=== PATIENT | male | born 1995 | race Caucasian/White ===

== ENCOUNTER 2021-11-14 16:31 | Emergency (ER) | payer OTHER, MEDICAID, SELFPAY ==
[2021-11-14 16:54] VITALS: BP 128/75; PULSE 106; RESP 12; TEMP 36.8; O2SAT 97; BMI 25.9
== END 2021-11-14 20:05 | disposition left against medical advice (07) ==
PROVIDERS: Emergency Provider Emergency Medicine; PCP Internal Medicine
DX: M79.644 Pain in right finger(s) (principal)
CPT/HCPCS: 99281; 99282

== ENCOUNTER 2021-12-31 17:33 | Emergency (ER) | payer OTHER, MEDICAID, SELFPAY ==
--- NOTE | ~2021-12-31 | XR_ITS ---
EXAMINATION: XR ELBOW, RIGHT CLINICAL INFORMATION: Needle fragment in antecubital space. COMPARISON: No recent priors. TECHNIQUE: AP, lateral, and oblique views of the right elbow. FINDINGS: There is a needle fragment of approximately 1.1 cm in length projecting over the soft tissues of the anterior elbow at approximately 2.8 cm from the anterior skin surface when measured on the lateral view and 2.5 cm from the lateral skin surface when measured on the AP view. There is surrounding soft tissue swelling. No other radiopaque foreign bodies. No acute fractures or malalignment. No joint effusion. XR/XR elbow RT min 3V IMPRESSION: Needle fragment as above with surrounding soft tissue swelling. No acute fractures or malalignment.
[2021-12-31 17:41] VITALS: BP 137/80; PULSE 93; RESP 18; TEMP 36.5; O2SAT 99; BMI 25.0
--- NOTE | 2021-12-31 18:13 | ED.SKABFB ---
HPI - Skin/Abscess/Foreign Bdy General Chief complaint: Skin/Abscess/Foreign Body Stated complaint: needle broke in his arm from injection Time Seen by Provider: 12/31/21 17:45 Source: patient Mode of arrival: ambulatory Limitations: no limitations History of Present Illness HPI narrative: 26-year-old male who has a past medical history of substance abuse currently on methadone presenting to the ED with complaints a possible needle stuck in his right forearm after he injected some heroin yesterday. He reports that he would like to speak to head strength and conditioning coach. He reports that he believes the methadone is not helping him because he believes that what he is buying off the street is not here when it is actually fat in all. He reports that he attempted to take out the needle himself although was unsuccessful and he is adamant that there is a needle in his right AC joint. He denies any other symptoms complaints or concerns at this time. He reports that he lives with his grandmother who he rents a room from. He reports that his mother is around although he does not speak to her due to ?situational issues?. He denies any SI/HI/auditory visual hallucinations and thoughts of self-injury. complaint: foreign body Onset (ago): day(s) (since) Location: RUE (right ac joint ) Severity: mild Quality: sharp and constant Pain Consistency: constant Relieving factors: none Exacerbating factors: palpation and movement Context: IVDA Associated symptoms: denies other symptoms Treatments prior to arrival: other (attempted to remove needle himself ) Related Data Home Medications Medication Instructions Recorded Confirmed methadone 10 mg/mL oral concentrate 96 mg PO DAILY ml 04/22/21 04/22/21 Previous Rx's Medication Instructions Recorded cephalexin 500 mg capsule 500 mg PO Q6H 10 Days #40 cap 12/31/21 doxycycline hyclate 100 mg tablet 100 mg PO BID 10 Days #20 tab 12/31/21 Allergies Allergy/AdvReac Type Severity Reaction Status Date / Time No Known Allergies Allergy Verified 12/31/21 17:40 [No Known Allergies*] Review of Systems Review of Systems: Constitutional : Denies history of same, Denies any other sites involved, Denies IV drug use, Denies history of MRSA, Denies swollen glands, Denies injury, Denies Fever, Denies Chills, + Sig Pain, Denies Systemic symptoms Cardiovascular : No Chest Pain, No SOB Respiratory : No Dyspnea Gastrointestinal : No abdominal pain Musculoskeletal : No Joint Swelling Skin : + ? FB in right ac aspect, No abscess with surrounding erythema, No skin laceration, No spreading rash, Denies bites, Denies discharge, Neuro : No Weakness, No Numbness/tingling Psych : No SI/HI/thoughts of self injury Yes all other systems are reviewed and are negative [facility] Past Medical History Attestation statement: The following information was validated with the patient. Medical History Hx of substance abuse Smoker Surgical History No significant past surgical history Family History Family History Father No problems noted. Mother No problems noted. Social History Social History Alcohol intake: never Patient Tobacco Use Status: Current someday Tobacco user Tobacco use type: Cigarette Cigarettes Per Day: 10 Advance Directives: No Advance Directives Information Provided: Yes Physical Exam Vital Signs: Vital Signs: Last Vital Signs Temp 97.7 F 12/31/21 17:41 Pulse 93 12/31/21 17:41 Resp 18 12/31/21 17:41 BP 137/80 12/31/21 17:41 Pulse Ox 99 12/31/21 17:41 BMI result Body Mass Index 25.0 vital signs have been reviewed as normal and appeared to be correct. Blood pressure normal Heart rate normal. Respiration rate normal. Temperature normal. Oxygen saturation normal. Appearance: Alert. Oriented X3. No acute distress. Head: Normal external exam. Normocephalic. Atraumatic. Eyes: PERRLA. EOMI. Conjunctiva and sclera normal. Eyelids normal. ENT: Pharynx normal. Uvula midline. Moist mucous membranes. Neck: Normal inspection. Neck supple. FROM. CVS: Normal heart rate and rhythm. Respiratory: No respiratory distress. Painless inspiration. Skin: Skin warm and dry. Normal skin color. Normal skin turgor. No rashes/lesions/lacerations noted. Extremities: To the right AC joint patient has a scab with some soft tissue swelling no obvious foreign bodies on my exam and no surrounding erythema/fluctuance or streaking noted at this time. He does have 0 track underwood. Otherwise all other Extremities exhibit normal range of motion and nontender. Neuro: Oriented X 3. No motor deficit. No sensory deficit. Reflexes normal. Normal steady gait. No focal neuro deficits noted. Vascular: + radial pulses/+ 2 distal pedal pulses/+2 dorsalis pedis b/l. Normal cap refill. No cyanosis noted to upper extremity nails and lower extremity toes nails. Course Course Course Narrative: 17:45pm - 26-year-old male who has a past medical history of substance abuse currently on methadone presenting to the ED with complaints a possible needle stuck in his right forearm after he injected some heroin yesterday. He reports that he would like to speak to head strength and conditioning coach. He reports that he believes the methadone is not helping him because he believes that what he is buying off the street is not here when it is actually fat in all. He reports that he attempted to take out the needle himself although was unsuccessful and he is adamant that there is a needle in his right AC joint. He denies any other symptoms complaints or concerns at this time. He reports that he lives with his grandmother who he rents a room from. He reports that his mother is around although he does not speak to her due to ?situational issues?. He denies any SI/HI/auditory visual hallucinations and thoughts of self-injury. Therefore at this time I ordered an x-ray of his right elbow. I also spoke to Nicolas the recovery culture to will speak to the patient. Will re-evaluate. Reevaluation(s) Reevaluation #1: - when I reviewed the patient's elbow x-ray it appears that the patient does have a piece of the broken needle in his right AC although it appears that it is in the musculature. Dr. Brantley and myself when and to try to see if we could take out the foreign body although the patient is unable to pinpoint where his actual pain is from and it appears on x-ray that it might be deep therefore I consulted with Dr. Wasserman and he reported that the patient can call to the office tomorrow to make a follow-up appointment possibly for for outpatient further evaluation treatment and removal of this foreign body. - will update the patient's tetanus at this time. Will DC home with antibiotics and instructions to call Dr. Wasserman office tomorrow for follow-up for further evaluation and treatment of removal of this foreign body. Patient understands agrees with this plan. Time: 18:39 MDM - Skin/Abscess/Foreign Bdy Medical Records Attestation: I reviewed the patient's medical records. Discharge Plan Discharge Clinical Impression: Foreign body in right upper extremity Patient Disposition: Home, Self-Care Instructions: Soft Tissue Foreign Body (ED) Prescriptions: New cephalexin 500 mg capsule 500 mg PO Q6H 10 Days Qty: 40 0RF doxycycline hyclate 100 mg tablet 100 mg PO BID 10 Days Qty: 20 0RF No Action methadone 10 mg/mL concentrate 96 mg PO DAILY 0RF Rx Instructions: [facility] (Methadone clinic) Referrals: Troy Dunham MD [Primary Care Provider] - 2 days Fabio Wasserman MD [Physician] - 1 day (Call tomorrow to make a follow-up appointment within [address] Wasserman will be in the OR all day tomorrow so he reported that possibly on he will be able to see you although you need to call to see when is the next available appointment or you can ask for Dr. Mccullough as well) Stand Alone Forms: Work/School Release Print Language: Azeri
[2021-12-31] MEDS: cephALEXin 500 MG CAPSULE PO (18:53)
[2021-12-31] MEDS: Diphth,Pertus(ACell),Tet Adult 0.5 ML SYRINGE IM (18:59)
--- NOTE | 2021-12-31 19:09 | MHC.RECOVSUP ---
? Reason for consult:Recovery Support o?? Current location ?[facility] o?? Identified substance use concern Heroine ? ?? Support ? Intervention: o?? Community resources provided o?? Harm reduction discussion ? Plan: o?? Follow up tomorrow? o?? Patient to follow up with [facility] after discharge ? Additional information: Met with Pt. Spoke to Pt. about if he was interested in going to treatment Pt. stated that he has a job and does not want to lose it. Also Pt. stated that he was on methadone but it's not working for him .Said that he is still feeling withdrawals by the night time.This is the reason he uses heroin. Gave different options for him he stated that he will go [facility] [place] tomorrow. ?
== END 2021-12-31 19:12 | disposition home or self-care (01) ==
PROVIDERS: Emergency Provider Emergency Medicine Emergency Medical Services; PCP Internal Medicine
DX: M79.5 Residual foreign body in soft tissue (principal); F19.10 Other psychoactive substance abuse, uncomplicated; F11.20 Opioid dependence, uncomplicated; F17.200 Nicotine dependence, unspecified, uncomplicated
CPT/HCPCS: 73080; 90471; 90715; 99283; 99284

== ENCOUNTER → 2022-01-01 12:56 | Outpatient (BNVA) | payer OTHER, MEDICAID, SELFPAY | PROVIDERS: PCP Internal Medicine; Referring Provider Internal Medicine; Visit Provider Surgery ==

== ENCOUNTER 2023-03-23 15:50 | Outpatient (AMB) | payer OTHER, SELFPAY ==
--- NOTE | 2023-03-23 16:02 | A.OFFPC_ITS ---
Vital Signs 03/23/23 16:04 Height 5 ft 8 in Weight 178 lb 2 oz BMI 27.1 BP 110/80 Blood Pressure Location Lt brachial Position Sitting Pulse 94 Pulse Source Pulse Oximeter Pulse Oximetry (%) 94 Oxygen Delivery Method Room Air Intake Visit Reasons: 6mth f/u Intake Note: Patient is here for a six months follow up. Process Owner Required: No Accompanied by: Self / Same As Patient Allergies No Known Allergies [No Known Allergies*] Allergy (Verified 07/11/24 11:05) Medication List - Last Reconciled 03/23/23 by Troy Dunham MD methadone 95 mg PO DAILY nicotine (polacrilex) 4 mg buccal Q4-8H PRN Tobacco use date assessed: 03/23/23 HPI 6mth f/u HPI Details Patient comes in today for his follow up visit States that he still has the same symptoms of recurrent tingling sensation/numbness over his right thigh, which has been going on for over a year now States that his symptoms sometimes wake him up in the middle of the night Also relates that he has been experiencing increased anxiety lately Recalls that he used to take Wellbutrin and Gabapentin for his anxiety and that they were helping but he could not get his Rx refilled after a while as he stopped following up with his psychiatrist / doctor back then Also has trouble sleeping at night and tried Trazodone in the past but could not tolerate it due to side effects (nightmares) Is currently still on Methadone but he is now down to 95 mg a day He also did not get any of his previously ordered labs done after his visit for physical exam about 6 months ago He currently denies any headaches or dizziness Denies any chest pains, no SOB No nausea/vomiting, no abdominal pain No change in bowel habits noted [facility] Medical History (Updated 07/14/24 @ 00:02 by Emely Solano) Hepatitis C Anxiety Foreign body (FB) in soft tissue Smoker Hx of substance abuse Surgical History No significant past surgical history Family History Father No problems noted. Mother No problems noted. Social History Housing: Homeless Do you presently have visiting nurse or other home services: No Alcohol intake: current Alcohol intake frequency: 3 or more drinks per day Alc ohol type: beer and hard liquor Patient Tobacco Use Status: Former Tobacco user Tobacco use type: Cigarette Cigarette Packs Per Day: 0.5 Cigarettes Per Day: 10.0 Years Smoked: 10 years e-Cigarette/Vaping Use: Former Use Second Hand Smoke Exposure: No Substance Use Type: Crack/Cocaine and Heroin service: No Current occupational status: unemployed Sexual orientation: Straight/Heterosexual Cognitive needs: No Hearing needs: No Vision needs: No Questionnaire PHQ-9 Over the last 2 weeks, how often have you been bothered by any of the following problems? 1. Little interest or pleasure in doing things: not at all 2. Feeling down, depressed, or hopeless: not at all 3. Trouble falling or staying asleep, or sleeping too much: not at all 4. Feeling tired or having little energy: not at all 5. Poor appetite or overeating: not at all 6. Feeling bad about yourself - or that you are a failure or have let yourself or your family down: not at all 7. Trouble concentrating on things, such as reading the newspaper or watching television: not at all 8. Moving or speaking so slowly that other people could have noticed. Or the opposite - being so fidgety or restless that you have been moving around a lot more than usual: not at all 9. Thoughts that you would be better off or of hurting yourself in some way: not at all Total score: 0 Depression Screening Interpretation: Negative 30901 - PHQ-9 Billing: Yes Source: Developed by Drs. Mike Jefferson, Daiana Barrios, Zuhair Khan and colleagues, with an educational joaquim from [employer]. Thrive Questionnaire Date Thrive assessed: 03/23/23 I am a: Patient What is your living situation today?: I have a steady place to live Within the past 12 months, did the food you bought not last and you didn't have the money to get more?: Never true Within the past 12 months, did you worry whether your food would run out before you got money to buy more?: Never true Do you have trouble paying for medicines?: No Do you have trouble getting transportation to medical appointments?: No Do you have trouble paying your heating and electricity bill?: No Do you have trouble taking care of your child, family member or friend?: No Do you have trouble with day-to-day activities such as bathing, preparing meals, shopping, managing finances, etc.?: No Are you currently unemployed and looking for a job?: No Are you interested in more education?: No Currently or been in a relationship where the following occur: no concerns reported AUDIT C Alcohol Use Questionnaire (AUDIT-C) 1. How often do you have a drink containing alcohol?: 2-4 times a month 2. How many drinks containing alcohol do you have on a typical day when you are drinking?: 1 or 2 3. How often do you have six or more drinks on one occasion?: Never Total Score: 2 Score Reviewed/Action Taken: Yes OSEAS-7 AMB Questionnaire OSEAS-7 Date OSEAS - 7 assessed: 03/23/23 Feeling nervous, anxious, or on edge: 3 = Nearly every day Not being able to stop or control worryin = Nearly every day Worrying too much about different things: 3 = Nearly every day Trouble relaxin = Nearly every day Being so restless that it is hard to sit still: 3 = Nearly every day Becoming easily annoyed or irritable: 3 = Nearly every day Feeling afraid as if something awful might happen: 3 = Nearly every day Total OSEAS-7 score (0-4 normal; 5-9 mild; 10-14 moderate; 15-21 severe): 21 Source: Developed by Drs. Mike Jefferson, Daiana Barrios, Zuhiar Khan and colleagues, with an educational joaquim from [employer]. Review of Systems Const Denies chills, Reports difficulty sleeping, Denies fatigue, Denies fever(s) and Denies headache(s) ENT Denies dysphagia, Denies dizziness, Denies otalgia, Denies headache(s), Denies neck pain, Denies odynophagia and Denies sore throat Card Denies chest pain, Denies irregular heart rhythm, Denies palpitations and Denies dyspnea Resp Denies chest congestion, Denies cough and Denies dyspnea GI Denies abdominal pain, Denies change in bowel habits, Denies constipation, Denies dysphagia, Denies heartburn, Denies diarrhea, Denies nausea, Denies odynophagia and Denies vomiting Denies difficulty urinating, Denies dysuria and Denies urinary frequency Musc Denies back pain, Denies arthralgias, Denies neck pain, Reports numbness (on and off over the right thigh anterolaterally) and Reports tingling (on and off over the right thigh anterolaterally) Skin/Breast Denies rash Neuro Denies dizziness, Denies headache(s), Reports numbness (on and off over the right thigh anterolaterally) and Reports tingling (on and off over the right thigh anterolaterally) Psych Reports anxiety (increasing lately) and Denies depression Endo Denies fatigue and Denies palpitations Physical exam (Primary Care) Vital Signs: Last Vital Signs Pulse 94 03/23/23 16:04 BP 110/80 03/23/23 16:04 Pulse Ox 94 03/23/23 16:04 Oxygen Delivery Method Room Air 03/23/23 16:04 BMI result Body Mass Index 27.1 Tobacco/Smoking Status: Tobacco use Status Tobacco use date assessed 03/23/23 03/23/23 16:08 Patient Tobacco Use Status Current someday Tobacco 03/23/23 16:08 Tobacco use type Cigarette 03/23/23 16:08 e-Cigarette/Vaping Use Never Used 03/23/23 16:08 PHQ-9: PHQ-9 Score PHQ-9: Total score 0 03/23/23 16:52 Depression Screening Interpretation: Negative Thrive Assessment: Date of Thrive Assessment Date Thrive assessed 03/23/23 03/23/23 16:08 Currently or been in a relationship where the following occur: no concerns reported Const General: no acute distress and alert HENMT Ears: TM's normal bilaterally and EAC's normal Throat: Yes posterior oropharynx normal and Yes tonsils normal (no TP congestion) Neck Neck: Yes no lymphadenopathy and Yes supple Thyroid: Thyroid normal Resp Auscultation: clear to auscultation bilaterally, no rales and no wheezes Cardio Rate: regular rate Rhythm: regular rhythm Heart sounds: no murmurs GI Palpation (GI): Soft to palpation and nontender Auscultation: normal bowel sounds General: Yes no CVA tenderness Back/Spine/Pelvis Back: no CVA tenderness Thoracic/Lumbar Spine: thoracic and lumbar spine normal to inspection Skin Rashes: no rashes Neuro General: no focal motor deficits Extrem General: Yes no clubbing, cyanosis or edema Assessment and Plan Assessment & Plan (1) Paresthesia: Code(s): R20.2 - Paresthesia of skin Plan: Involving mostly the right thigh Have advised patient that his symptoms are highly suggestive of meralgia paresthetica, which does not really have any definitive cure but avoiding tight pants and clothings and losing weight will help alleviate and sometimes resolve these symptoms Will start him for now on Gabapentin 300 mg BID to help with his symptoms Will send him again for EMG and NCV for further evaluation Have also advised him to go and get all of his previously ordered labs done KATLIN (2) Anxiety: Code(s): F41.9 - Anxiety disorder, unspecified Plan: Will start him on Bupropion XL 150 mg Q AM (3) Hx of substance abuse: Comment: Methadone clinic is [facility] on [facility] in [place], [place] Code(s): F19.11 - Other psychoactive substance abuse, in remission Plan: Continue Methadone 95 mg QD Follow up with the methadone clinic as scheduled (4) Smoker: Code(s): F17.200 - Nicotine dependence, unspecified, uncomplicated Plan: Counseled again on smoking cessation Plan Follow up in 4 months Orders: Orders NE electromyogram (EMG) 03/23/23 R20.2 - Paresthesia of skin NE nerve conduction velocity 03/23/23 R20.2 - Paresthesia of skin Medications: New bupropion HCl XL 150 mg PO QAM 30 tabs 3RF 30 days F41.9 - Anxiety disorder, unspecified gabapentin 300 mg PO BID 60 caps 3RF 30 days F41.9 - Anxiety disorder, unspecified Coding Level of Care Code Est Pt Level 4 (30220) Diagnoses Paresthesia R20.2 Anxiety F41.9 Hx of substance abuse F19.11 Smoker F17.200
[2023-03-23 16:04] VITALS: BP 110/80; PULSE 94; O2SAT 94; BMI 27.1
== END 2023-03-23 16:58 | disposition home or self-care (01) ==
LOC: HO.HMGH 15:50
PROVIDERS: PCP Internal Medicine; Visit Provider Internal Medicine
DX: R20.2 Paresthesia of skin (principal); F41.9 Anxiety disorder, unspecified; F19.11 Other psychoactive substance abuse, in remission; F17.200 Nicotine dependence, unspecified, uncomplicated
CPT/HCPCS: 99499

== ENCOUNTER 2024-03-30 02:05 | Emergency (ER) | payer MEDICAID, SELFPAY ==
[2024-03-30 02:19] VITALS: BP 125/86; PULSE 90; RESP 18; TEMP 36.6; O2SAT 96; BMI 31.2
--- NOTE | 2024-03-30 03:25 | PC.NURSE ---
abscess noted to pt's left outer forearm. purple/swelling noted throughout area. no drainage/odor noted. pt states he is a IVDU and verbalizes missing his vein x 3 weeks ago. pt states he has not used cocaine or any other drugs in 2 weeks. pt denies fever/chills. tech obtained labs/sent. no sob/wob noted. respirations even and unlabored.
[2024-03-30 03:27] LABS: MANUAL DIFF FLAG NO
[2024-03-30 03:29] LABS: Basophils Percent Auto 0.3 % (0-2); Eosinophils Absolute Auto 0.1 X10*3/uL (0.0-0.4); Eosinophils Percent Auto 0.5 % (0-4); Hematocrit 34.4 % (42.0-52.0); Hemoglobin 12.2 g/dl (14.0-18.0); Imm Gran Abs Auto 0.03 X10*3/uL (0.00-0.03); Imm Gran Pct Auto 0.3 % (0.0-0.4); Lymphocytes Absolute Auto 2.8 X10*3/uL (1.2-4.9); Lymphocytes Percent Auto 26.1 % (20-40); Mean Corpuscular HGB Conc 35.5 g/dl (31.0-36.0); Mean Corpuscular Hemoglobin 29.5 pg (27.0-33.0); Mean Corpuscular Volume 83.1 fL (80.0-98.0); Mean Platelet Volume 8.8 fL (9.4-12.4); Monocytes Absolute Auto 0.8 X10*3/uL (0.1-1.2); Monocytes Percent Auto 6.9 % (2-11); Neutrophils Absolute Auto 7.2 x10*3/uL (2.0-8.3); Neutrophils Percent Auto 65.9 % (45-73); Platelet Count 387 X10*3/uL (160-400); Red Blood Count 4.14 X10*6/uL (4.60-5.80); Red Cell Distribution Width 12.1 % (11.0-16.0); White Blood Count 10.9 X10*3/uL (4.8-10.8)
[2024-03-30 03:42] LABS: Alanine Aminotransferase 58 U/L (0-40); Albumin Level 4.3 g/dL (3.5-5.0); Alkaline Phosphatase 111 U/L (39-117); Anion Gap 16 (12-20); Aspartate Amino Transferase 38 U/L (5-37); Bilirubin Total 0.4 mg/dL (0.0-1.0); Blood Urea Nitrogen 10 mg/dL (9-16); Calcium 9.1 mg/dL (8.4-10.2); Carbon Dioxide 24 mmol/L (22-29); Chloride 103 mmol/L (96-108); Creatinine Clr Calc Pharmacy 134.9; Estimated Glomerular Filt Rate > 60; Glucose Random 94 mg/dL (60-115); Potassium 4.5 mmol/L (3.3-5.1); Sodium 138 mmol/L (135-145); Total Protein 7.4 g/dL (6.5-8.0)
--- NOTE | 2024-03-30 04:22 | PC.NURSE ---
abscess drained by dr. bill - pt tolerated well.
[2024-03-30] MEDS: Doxycycline Monohydrate 100 MG CAPSULE PO (04:34)
[2024-03-30] MEDS: Lidocaine HCl 1 % MPF 5 ML VIAL SUBCUT (04:34)
[2024-03-30] MEDS: cephALEXin 500 MG CAPSULE PO (04:34)
--- NOTE | 2024-03-30 04:34 | PC.NURSE ---
abx administered per provider order.
--- NOTE | 2024-03-30 04:37 | ED_ITS ---
HPI - Skin/Abscess/Foreign Bdy General Chief complaint: Skin/Abscess/Foreign Body Stated complaint: abscess on arm Time Seen by Provider: 03/30/24 04:05 Source: patient Mode of arrival: ambulatory Limitations: no limitations History of Present Illness HPI narrative: 28 yo male with PMH of IVDA here with c/o L elbow abscess at injection site no FB reported x 3 weeks no attempts at drainage no systemic symptoms no hx of MRSA MD complaint: abscess/boil Onset (ago): week(s) (3) Tetanus up to date: yes Location: LUE Severity: mild Relieving factors: none Exacerbating factors: palpation Context: IVDA Associated symptoms: denies other symptoms Treatments prior to arrival: none Related Data Home Medications ?Medication ?Instructions ?Recorded ?Confirmed methadone 10 mg/mL oral concentrate 95 mg PO DAILY 03/23/23 03/23/23 Previous Rx's ?Medication ?Instructions ?Recorded nicotine (polacrilex) 4 mg buccal 4 mg buccal Q4-8H PRN nicotine 03/18/23 lozenge cravings #108 ea bupropion HCl 150 mg 24 hr tablet, 150 mg PO QAM 30 days #30 tabs 04/21/23 extended release gabapentin 300 mg capsule 300 mg PO BID 30 days #60 caps 04/21/23 cephalexin 500 mg capsule 500 mg PO QID 7 days #28 caps 03/30/24 doxycycline hyclate 100 mg capsule 100 mg PO BID 7 days #14 caps 03/30/24 Allergies Allergy/AdvReac Type Severity Reaction Status Date / Time No Known Allergies Allergy Verified 03/30/24 02:22 [No Known Allergies*] Review of Systems 2 Review of Systems: Constitutional : No Fever, No Chills ENT/Mouth : No sore throat, No Rhinorrhea Eyes: No Eye Pain, No Swelling, No Redness Cardiovascular : No Chest Pain, No SOB Respiratory : No Cough, No Sputum Gastrointestinal : No Nausea, No Vomiting, No Diarrhea, No abdominal Pain Genitourinary : No Dysuria, No Hematuria Musculoskeletal : No joint pain, No Myalgias, No Joint Swelling Skin : pos Skin Lesion, positive skin rash Neuro : No Weakness, No Numbness, No Headache Psych : No Anxiety, No Depression All other systems reviewed and are negative PMFSH Past Medical History Attestation statement: The following information was validated with the patient. Source: old records reviewed Medical History Anxiety Foreign body (FB) in soft tissue Smoker Hx of substance abuse Surgical History No significant past surgical history Family History Family History Father No problems noted. Mother No problems noted. Social History Social History Housing: House Alcohol intake: never Patient Tobacco Use Status: Current someday Tobacco user Tobacco use type: Cigarette Cigarettes Per Day: 10 e-Cigarette/Vaping Use: Never Used Advance Directives: No Advance Directives Information Provided: No Do you have a plan to hurt others: No Plan service: No Current occupational status: unemployed Cognitive needs: No Hearing needs: No Vision needs: No Physical Exam 2 Vital Signs: Vital Signs: Last Vital Signs Temp 97.8 F 03/30/24 05:13 Pulse 75 03/30/24 05:13 Resp 16 03/30/24 05:13 BP 114/64 03/30/24 05:13 Pulse Ox 96 03/30/24 05:13 O2 Del Method Room Air 03/30/24 05:13 BMI result Body Mass Index 31.2 Appearance: Alert. Oriented X3. No acute distress. Eyes: Pupils equal, round and reactive to light. ENT: Pharynx normal. Neck: Normal inspection. Neck supple. CVS: Normal heart rate and rhythm. Pulses normal. Respiratory: No respiratory distress. Breath sounds normal. Abdomen: Soft and nontender. Skin: Skin warm and dry. Normal skin color. Normal skin turgor. Extremities: L elbow near medial epicondyle fluctuance superficial to a point soft 2cm abscess no joint effusion normal ROM of joint no cellulitis Neuro: Oriented X 3. No motor deficit. No sensory deficit. Medications Administered Discontinued Medications Generic Name Dose Route Start Last Admin Trade Name Freq PRN Reason Stop Dose Admin Cephalexin HCl 500 mg 03/30/24 04:27 03/30/24 04:34 Cephalexin 500 Mg Capsule PO 03/30/24 04:28 500 mg ONCE ONE Administration Doxycycline Monohydrate 100 mg 03/30/24 04:27 03/30/24 04:34 Doxycycline Monohydrate 100 Mg Capsule PO 03/30/24 04:28 100 mg ONCE ONE Administration Lidocaine HCl 5 ml 03/30/24 04:27 03/30/24 04:34 Lidocaine Hcl 1 % Mpf 5 Ml Vial SUBCUT 03/30/24 04:28 5 ml ONCE ONE Administration Medical Decision Making Medical Decision Making [facility] Narrative: 28 yo male with IVDA and hep C here with c/o L superficial abscess on medial condyle area of L elbow no signs of systemic illness it really is isolated abscess no joint involvement at this time will aspirate and start on oral antibiotics. Differential Diagnosis Differential Diagnoses: The differential diagnosis associated with the presentation includes abscess, MRSA Admission/Observation Consideration of admission/observation: Escalation of care including admission/observation considered no systemic symptoms not toxic, can trial oral antibiotics Lab Data [facility] Lab Attestation statement: I reviewed the patient's lab results. 03/30/24 03:02 03/30/24 03:02 Labs: Lab Results 03/30/24 Range/Units 03:02 WBC 10.9 H (4.8-10.8) X10*3/uL RBC 4.14 L (4.60-5.80) X10*6/uL Hgb 12.2 L (14.0-18.0) g/dl Hct 34.4 L (42.0-52.0) % MCV 83.1 (80.0-98.0) fL MCH 29.5 (27.0-33.0) pg MCHC 35.5 (31.0-36.0) g/dl RDW 12.1 (11.0-16.0) % Plt Count 387 (160-400) X10*3/uL MPV 8.8 L (9.4-12.4) fL Immature Gran % (Auto) 0.3 (0.0-0.4) % Neut % (Auto) 65.9 (45-73) % Lymph % (Auto) 26.1 (20-40) % [place] % (Auto) 6.9 (2-11) % Eos % (Auto) 0.5 (0-4) % Baso % (Auto) 0.3 (0-2) % Lymph # (Auto) 2.8 (1.2-4.9) X10*3/uL [place] # (Auto) 0.8 (0.1-1.2) X10*3/uL Eos # (Auto) 0.1 (0.0-0.4) X10*3/uL Baso # (Auto) 0.0 (0.0-0.2) X10*3/uL Abs Immat Gran (auto) 0.03 (0.00-0.03) X10*3/uL Absolute Neuts (auto) 7.2 (2.0-8.3) x10*3/uL Absolute Nucleated RBC 0.000 (0.0-0.012) X10*3/uL Nucleated RBC % (auto) 0.0 (0.0-0.2) /100WBC Sodium 138 (135-145) mmol/L Potassium 4.5 (3.3-5.1) mmol/L Chloride 103 (96-108) mmol/L Carbon Dioxide 24 (22-29) mmol/L Anion Gap 16 (12-20) BUN 10 (9-16) mg/dL Creatinine 0.91 (0.5-1.4) mg/dL Estim Creat Clear Calc 134.9 Estimated GFR > 60 Random Glucose 94 (60-115) mg/dL Calcium 9.1 (8.4-10.2) mg/dL Total Bilirubin 0.4 (0.0-1.0) mg/dL AST 38 H (5-37) U/L ALT 58 H (0-40) U/L Alkaline Phosphatase 111 (39-117) U/L Total Protein 7.4 (6.5-8.0) g/dL Albumin 4.3 (3.5-5.0) g/dL External Record Review External record reviewed: Inpatient record Prescription Management I considered prescription management with: Antibiotic Procedures Abscess I/D Site: upper extremity Side (if applicable): left Local Anesthetic: lidocaine 1% Amount of anesthesia used (mL): 1 Technique: needle aspiration Amount of fluid expressed (mL): 2 Sent for culture/gram staining?: No Packing used?: none Discharge Plan Discharge Clinical Impression: Abscess of skin or subcutaneous tissue Qualifiers: Site of cutaneous abscess: extremity Site of cutaneous abscess of extremity: u pper extremity Laterality: left Qualified Code(s): L02.414 - Cutaneous abscess of left upper limb Patient Disposition: Home, Self-Care Instructions: Abscess (ED) Additional Instructions: return for worsening redness, yellow drainage, fevers, pain or any other concerns On doxycycline, do not take pills immediately before going to bed and swallow pills with plenty of water. Avoid direct sunlight, iron, antacids, and Pepto Bismol. Call your provider if you develop new ringing in your ears, new problems hearing, dizziness, difficulty swallowing, rash, abdominal discomfort, nausea, or diarrhea.? On a cephalosporin?antibiotic, softer bowel movements are to be expected. Call your provider if you move your bowels more than 4 times a day, your bowel movements are almost all liquid, or you get a rash.?? Prescriptions: New cephalexin 500 mg capsule 500 mg PO QID 7 Days Qty: 28 0RF doxycycline hyclate 100 mg capsule 100 mg PO BID 7 Days Qty: 14 0RF No Action nicotine (polacrilex) 4 mg lozenge 4 mg buccal Q4-8H PRN (Reason: nicotine cravings) Qty: 108 0RF bupropion HCl 150 mg tablet extended release 24 hr 150 mg PO QAM 30 Days Qty: 30 3RF gabapentin 300 mg capsule 300 mg PO BID 30 Days Qty: 60 3RF methadone 10 mg/mL concentrate 95 mg PO DAILY Rx Instructions: [facility] on [facility] in [place] (Methadone clinic) Interventions: ED Discharge Assessment Last Done: 03/30/24 05:13 Discharge Date/Time: 03/30/24 05:13 Print Language: Citizen [place]
[2024-03-30 05:12] VITALS: BP 114/64; PULSE 75; RESP 16; TEMP 36.6; O2SAT 96
[2024-03-30 05:13] VITALS: BP 114/64; PULSE 75; RESP 16; TEMP 36.6; O2SAT 96
== END 2024-03-30 05:13 | disposition home or self-care (01) ==
PROVIDERS: Emergency Provider Emergency Medicine; PCP Internal Medicine
DX: L02.414 Cutaneous abscess of left upper limb (principal)
CPT/HCPCS: 10060; 36415; 80053; 85025; 99282; 99284

== ENCOUNTER 2024-05-31 22:33 | Emergency (ER) | payer OTHER, SELFPAY ==
[2024-05-31 22:37] VITALS: BP 113/71; PULSE 125; RESP 18; TEMP 36.7; O2SAT 95; BMI 29.6
--- NOTE | 2024-06-01 00:30 | PC.NURSE ---
MD Trinh with this RN spoke with pt, pt stated he will wait until morning and seek assistance at the [facility] clinic where he is regularly dosed rather than waiting for verification through [facility]. Pt to be DC from .
--- NOTE | 2024-06-01 00:41 | ED_ITS ---
HPI - General Adult General Chief complaint: General Medical Stated complaint: seeking methadone dose Time Seen by Provider: 06/01/24 00:30 Source: patient Mode of arrival: ambulatory Limitations: no limitations History of Present Illness ED Provider: Dr. Miladys Trinh HPI narrative: Patient comes to the emergency room requesting a methadone dose. Patient states that he has not been taking methadone for over 3 days. Otherwise, patient has no complaints Related Data Home Medications ?Medication ?Instructions ?Recorded ?Confirmed methadone 10 mg/mL oral concentrate 95 mg PO DAILY 03/23/23 03/23/23 Previous Rx's ?Medication ?Instructions ?Recorded nicotine (polacrilex) 4 mg buccal 4 mg buccal Q4-8H PRN nicotine 03/18/23 lozenge cravings #108 ea bupropion HCl 150 mg 24 hr tablet, 150 mg PO QAM 30 days #30 tabs 04/21/23 extended release gabapentin 300 mg capsule 300 mg PO BID 30 days #60 caps 04/21/23 cephalexin 500 mg capsule 500 mg PO QID 7 days #28 caps 03/30/24 doxycycline hyclate 100 mg capsule 100 mg PO BID 7 days #14 caps 03/30/24 Allergies Allergy/AdvReac Type Severity Reaction Status Date / Time No Known Allergies Allergy Verified 05/31/24 22:39 [No Known Allergies*] Review of Systems Review of Systems: Constitutional : No Weight loss, No Fever, No Chills, No Night Sweats, No Fatigue, No Malaise ENT/Mouth : No Hearing loss, No Ear Pain, No Nasal Congestion, No Sinus Pain, No Hoarseness, No sore throat, No Rhinorrhea, No Swallowing Difficulty Eyes: No Eye Pain, No Swelling, No Redness, No Foreign Body, No Discharge, No V ision Changes Cardiovascular : No Chest Pain, No SOB, No Dyspnea on Exertion, No Orthopnea, No Edema, No Palpitations Respiratory : No Cough, No Sputum, No Wheezing, No Smoke Exposure, No Dyspnea Gastrointestinal : No Nausea, No Vomiting, No Diarrhea, No Constipation, No abdominal Pain, No Hematochezia, No Melena Genitourinary : no irregular bleeding, No Dysuria, No Urinary Frequency, No Hematuria, No Urinary Incontinence, No Urgency, No Flank Pain, No Urinary Flow Changes, No Hesitancy Musculoskeletal : No joint pain, No Myalgias, No Joint Swelling Skin : No Skin Lesions, No rash Neuro : No Weakness, No Numbness, No Paresthesias, No Loss of Consciousness, No Dizziness, No Headache Psych : No Anxiety/Panic, No Depression, No SI/HI/AH/VH, No Social Issues, Heme/Lymph: No Bruising, No Bleeding,No Lymphadenopathy Endocrine : No Polyuria, No Polydipsia, No Temperature Intolerance PMFSH Past Medical History Medical History Anxiety Foreign body (FB) in soft tissue Smoker Hx of substance abuse Surgical History No significant past surgical history Family History Family History Father No problems noted. Mother No problems noted. Social History Social History Housing: House Alcohol intake: never Patient Tobacco Use Status: Current someday Tobacco user Tobacco use type: Cigarette Cigarettes Per Day: 10 e-Cigarette/Vaping Use: Never Used Do you have a plan to hurt others: No Plan service: No Current occupational status: unemployed Cognitive needs: No Hearing needs: No Vision needs: No Physical Exam ED Vital Signs: Vital Signs - 24 hr 05/31/24 22:37 Temperature 98.0 F Pulse Rate 125 H Respiratory Rate 18 Blood Pressure 113/71 Pulse Oximetry 95 Oxygen Delivery Method Room Air BMI result Body Mass Index 29.6 Const Other: Appearance: Alert. Oriented X3. No acute distress. Eyes: Pupils equal, round and reactive to light. ENT: Pharynx normal. Neck: Normal inspection. Neck supple. No lymph nodes noted. No crepitus CVS: Normal heart rate and rhythm. Pulses normal. Normal S1 and S2 Respiratory: No respiratory distress. Breath sounds normal. No Wheezing. No rales Abdomen: Soft and nontender. No rigidity. No distention. Skin: Skin warm and dry. Normal skin color. Normal skin turgor. Extremities: No lower extremity edema. No Lacerations. No Rash Neuro: Oriented X 3. No motor deficit. No sensory deficit. Moving all extremities. No slurred speech. CN 2 through 12 grossly intact Psych: calm, cooperative, normal affect Medical Decision Making Medical Decision Making MDM Narrative: I discussed with the patient, that in order for him to receive a methadone from us, we would have to confirm his current dose with his clinic and he may have to start a lower dose since he has not taking methadone for 3 days. I discussed with the patient that he is welcome to stay and wait until the morning when his methadone clinic opens 5 hours from now or he can go 1st thing in the morning to his clinic to be reassessed and get his dose per their protocol. Patient de cided to go to his clinic tomorrow. Discharge Plan Discharge Clinical Impression: Hx of substance abuse Patient Disposition: Home, Self-Care Instructions: Methadone (By mouth) Additional Instructions: Please follow-up with your primary care physician tomorrow. If you have any worsening or new symptoms, please return to the emergency room or call 911 Prescriptions: No Action nicotine (polacrilex) 4 mg lozenge 4 mg buccal Q4-8H PRN (Reason: nicotine cravings) Qty: 108 0RF bupropion HCl 150 mg tablet extended release 24 hr 150 mg PO QAM 30 Days Qty: 30 3RF gabapentin 300 mg capsule 300 mg PO BID 30 Days Qty: 60 3RF cephalexin 500 mg capsule 500 mg PO QID 7 Days Qty: 28 0RF doxycycline hyclate 100 mg capsule 100 mg PO BID 7 Days Qty: 14 0RF methadone 10 mg/mL concentrate 95 mg PO DAILY Rx Instructions: [facility] on [facility] in [place] (Methadone clinic) Print Language: [place]i
[2024-06-01 00:56] VITALS: BP 121/71; PULSE 116; RESP 18; TEMP 36.6; O2SAT 95
== END 2024-06-01 00:59 | disposition home or self-care (01) ==
LOC: HO.ED 06-01 00:58
PROVIDERS: Emergency Provider Emergency Medicine; PCP Internal Medicine
DX: F11.20 Opioid dependence, uncomplicated (principal); F19.10 Other psychoactive substance abuse, uncomplicated
CPT/HCPCS: 99282

== ENCOUNTER 2024-06-26 03:48 | Inpatient (IN) | payer MEDICAID, OTHER, SELFPAY ==
[2024-06-26 03:52] VITALS: BP 141/94; PULSE 102; RESP 19; TEMP 36.6; O2SAT 99; BMI 29.0
--- NOTE | 2024-06-26 04:12 | ED_ITS ---
HPI - Psych General Chief Complaint: Psychiatric Symptoms Stated Complaint: psych Time Seen by Provider: 06/26/24 04:09 Source: patient Mode of arrival: ambulatory Limitations: no limitations History of Present Illness ED Provider: DR. Barros HPI Narrative: 28-year-old male homeless walked into the ED for evaluation of depression and SI, patient was kicked out of detox program which lead to relapse drugs, patient is using too much heroin and cocaine IV, which causing his depression and trigger suicidal ideation, patient has no plan to hurt himself. Patient had a diagnosis of depression, never been hospitalized for mental health issue. Related Data Home Medications ?Medication ?Instructions ?Recorded ?Confirmed methadone 10 mg/mL oral concentrate 95 mg PO DAILY 03/23/23 03/23/23 Previous Rx's ?Medication ?Instructions ?Recorded nicotine (polacrilex) 4 mg buccal 4 mg buccal Q4-8H PRN nicotine 03/18/23 lozenge cravings #108 ea cephalexin 500 mg capsule 500 mg PO QID 7 days #28 caps 03/30/24 doxycycline hyclate 100 mg capsule 100 mg PO BID 7 days #14 caps 03/30/24 bupropion HCl 150 mg 24 hr tablet, 150 mg PO QAM 30 days #30 tabs 06/08/24 extended release gabapentin 300 mg capsule 300 mg PO BID 30 days #60 caps 06/08/24 Allergies Allergy/AdvReac Type Severity Reaction Status Date / Time No Known Allergies Allergy Verified 06/26/24 03:55 [No Known Allergies*] Review of Systems Review of Systems: All other systems are reviewed and are negative Constitutional: Reports as per HPI and Reports no additional constitutional complaints Eyes: Reports as per HPI and Reports no additional eye complaints Reports system reviewed and no additional complaints, except as documented Cardiovascular: Reports as per HPI and Reports no additional cardiovascular complaints Respiratory: Reports as per HPI and Reports no additional respiratory complaints Gastrointestinal: Reports as per HPI and Reports no additional gastrointestinal complaints Genitourinary: Reports no additional female genitourinary complaints Musculoskeletal: Reports no additional musculoskeletal complaints Skin/Breast: Reports system reviewed and no additional complaints, except as docu Psychiatric: Reports no additional psychiatric complaints Endocrine: Reports no additional endocrine complaints Hematologic/Lymphatic: Reports no additional hematologic/lymphatic complaints Allergic/Immunologic: Reports no additional allergic/immunologic complaints Reports system reviewed and no additional complaints, except as documented and Reports Abnormal speech present PMFSH Past Medical History Medical History Anxiety Foreign body (FB) in soft tissue Smoker Hx of substance abuse Surgical History No significant past surgical history Family History Family History Father No problems noted. Mother No problems noted. Social History Social History Housing: House Alcohol intake: never Patient Tobacco Use Status: Current someday Tobacco user Tobacco use type: Cigarette Cigarettes Per Day: 10 e-Cigarette/Vaping Use: Never Used Do you have a plan to hurt others: No Plan service: No Current occupational status: unemployed Cognitive needs: No Hearing needs: No Vision needs: No Physical Exam Vital Signs: Vital Signs: Last Vital Signs Temp 97.9 F 06/26/24 03:52 Pulse 102 H 06/26/24 03:52 Resp 19 06/26/24 03:52 BP 141/94 H 06/26/24 03:52 Pulse Ox 99 06/26/24 03:52 O2 Del Method Room Air 06/26/24 03:52 BMI result Body Mass Index 29.0 Vital signs have been reviewed and appear to be correct. Blood pressure elevat ed. Heart rate elevated. Respiratory rate normal. Temperature normal. Oxygen saturation normal. Appearance: Alert. Oriented X3. No acute distress. Head: Normal external exam. Normocephalic. Atraumatic. No Mancia signs noted. No raccoon eyes noted Eyes: PERRLA. EOMI. Conjunctiva and sclera normal. Eyelids normal. ENT: TM's Normal. Pharynx normal. Uvula midline. Moist mucous membranes. No trismus noted. No drooling noted. No muffled voice noted. Neck: Normal inspection. Neck supple. FROM. No adenopathy. Thyroid Normal. No meningeal signs. No neck mass noted. CVS: Normal heart rate and rhythm. Heart sound normal. No murmurs noted. Pulses normal throughout. Respiratory: No respiratory distress. Painless inspiration. Breath sounds normal. No wheezes/rales/rhonchi noted. Chest nontender. No accessory muscle usage noted or decreased air movement noted. Abdomen: Soft and nontender. Bowel sounds normal in all 4 quadrants. No distention noted. No organomegaly noted. No visible injury noted. Back: No CVA tenderness. Full range of motion noted. Skin: Skin warm and dry. Normal skin color. Normal skin turgor. No rashes/lesions/lacerations noted. Extremities: No lower extremity edema. Extremities exhibit normal range of motion. Extremities nontender. Neuro: Oriented X 3. Cranial nerve exam: II-XII are grossly intact No motor deficit. No sensory deficit. Reflexes normal. Patient Orientation: Person, Place, Time and Situation, okay hygiene and grooming. Fair eye contact, attentive, no tics or tremors. Level of Consciousness: Awake, Appropriate and Alert Patient Behavior: Appropriate, Guarded, Cooperative and Anxious Mood Description: Constricted, Blunted and Apprehensive Affect Description: Constricted, Blunted and Apprehensive Patient Cognition Impaired: No Ability to Follow Directions: Excellent Speech Pattern: Clear, Appropriate and Spontaneous Speech, nonpressured, spontaneous with regular rate and rhythm, normal volume and prosody. No dysarthria. Memory Description: Intact, Immediate Intact and Short Term Intact Hallucinations: None Delusions: Not Present Thought Process: Intact Thought Content: positive for Suicidal Ideation without plan and denies Homicidal Ideation. Depressive Symptoms: Not present. Judgement and Insight: Limited but adequate. Course Reevaluation(s) Reevaluation #1: Depression/SI without plan/IV drug abuse. Will start physician observation, medically cleared, care team evaluation. Time: 04:45 Medical Decision Making Differential Diagnosis Differential Diagnoses: The differential diagnosis associated with the presentation includes (Depression, SI, drug abuse, medical clearance, electrolyte derangement, severe anemia.) Admission/Observation Consideration of admission/observation: Escalation of care including admission/observation considered Lab Data MDM Lab Attestation statement: I reviewed the patient's lab results. Social Determinants Patient?s care significantly limited by Social Determinants of Health including: Inadequate housing and Low income Discharge Plan Discharge Clinical Impression: Depression, Multiple substance abuse Patient Disposition: Still a Patient Prescriptions: No Action nicotine (polacrilex) 4 mg lozenge 4 mg buccal Q4-8H PRN (Reason: nicotine cravings) Qty: 108 0RF bupropion HCl 150 mg tablet extended release 24 hr 150 mg PO QAM 30 Days Qty: 30 1RF gabapentin 300 mg capsule 300 mg PO BID 30 Days Qty: 60 1RF cephalexin 500 mg capsule 500 mg PO QID 7 Days Qty: 28 0RF doxycycline hyclate 100 mg capsule 100 mg PO BID 7 Days Qty: 14 0RF methadone 10 mg/mL concentrate 95 mg PO DAILY Rx Instructions: [facility] on [facility] in [place] (Methadone clinic) Print Language: Malay
[2024-06-26 04:57] LABS: Basophils Percent Auto 0.2 % (0-2); Eosinophils Absolute Auto 0.2 X10*3/uL (0.0-0.4); Eosinophils Percent Auto 1.6 % (0-4); Hematocrit 36.6 % (42.0-52.0); Hemoglobin 12.5 g/dl (14.0-18.0); Imm Gran Abs Auto 0.03 X10*3/uL (0.00-0.03); Imm Gran Pct Auto 0.2 % (0.0-0.4); Lymphocytes Absolute Auto 3.6 X10*3/uL (1.2-4.9); Lymphocytes Percent Auto 29.1 % (20-40); MANUAL DIFF FLAG NO; Mean Corpuscular HGB Conc 34.2 g/dl (31.0-36.0); Mean Corpuscular Hemoglobin 28.9 pg (27.0-33.0); Mean Corpuscular Volume 84.7 fL (80.0-98.0); Mean Platelet Volume 8.9 fL (9.4-12.4); Monocytes Absolute Auto 0.9 X10*3/uL (0.1-1.2); Monocytes Percent Auto 7.6 % (2-11); Neutrophils Absolute Auto 7.5 x10*3/uL (2.0-8.3); Neutrophils Percent Auto 61.3 % (45-73); Platelet Count 403 X10*3/uL (160-400); Red Blood Count 4.32 X10*6/uL (4.60-5.80); Red Cell Distribution Width 12.6 % (11.0-16.0); White Blood Count 12.2 X10*3/uL (4.8-10.8)
[2024-06-26 05:11] LABS: Alanine Aminotransferase 33 U/L (0-40); Albumin Level 4.4 g/dL (3.5-5.0); Alkaline Phosphatase 114 U/L (39-117); Anion Gap 16 (12-20); Aspartate Amino Transferase 25 U/L (5-37); Bilirubin Total 0.5 mg/dL (0.0-1.0); Blood Urea Nitrogen 9 mg/dL (9-16); Calcium 9.4 mg/dL (8.4-10.2); Carbon Dioxide 23 mmol/L (22-29); Chloride 102 mmol/L (96-108); Estimated Glomerular Filt Rate > 60; Ethanol < 10 mg/dL; Glucose Random 99 mg/dL (60-115); Potassium 3.7 mmol/L (3.3-5.1); Sodium 137 mmol/L (135-145); Total Protein 7.4 g/dL (6.5-8.0)
[2024-06-26 05:40] LABS: Acetaminophen LAB < 3 mcg/mL (<30); Salicylate < 5.0 mg/dL (15-30)
[2024-06-26 06:46] VITALS: BP 129/86; PULSE 96; RESP 17; TEMP 36.7; O2SAT 96
[2024-06-26] MEDS: Nicotine Polacrilex 2 MG GUM BUCCAL ×2 (08:11→11:45)
[2024-06-26 08:43] LABS: Appearance Urine Clear; Color Urine Yellow; Glucose Urine UA Negative (Negative); Leukocyte Esterase Urine Small (1+) (Negative); Nitrite Urine Negative (Negative); PH 6.5 (5.0-9.0); UMIC TRIGGER UACC YES; Urine Blood Negative (Negative); Urine Ketones Trace mg/dL (Negative); Urine Protein Negative (Neg-Trace)
[2024-06-26 08:45] LABS: Bacteria Urine None Seen (None Seen); RBC Urine 0-2 /HPF (0-2); Squamous Epithelial Cell Urine 0-2 /HPF (0-2); UACC Culture Trigger YES
[2024-06-26 08:54] LABS: Amphetamine Screen Urine Not Detected (Not Detect); Barbiturates, Urine Not Detected (Not Detect); Benzodiazepines Screen Urine Not Detected (Not Detect); Buprenorphine Scr Not Detected (Not Detect); Cannabinoid Screen Urine Not Detected (Not Detect); Cocaine Screen Urine POSITIVE (Not Detect); Fentanyl, urine POSITIVE (Not Detect); Methadone Screen, Urine Positive (Not Detect); Opiate Screen Urine POSITIVE (Not Detect); Oxycodone Screen Urine Not Detected (Not Detect); Phencyclidine Screen Urine Not Detected (Not Detect)
[2024-06-26 10:26] VITALS: BP 133/89; PULSE 88; RESP 17; TEMP 36.6; O2SAT 97
--- NOTE | 2024-06-26 11:04 | PC.NURSE ---
Late entry: patient brought over from main ED, patient is calm and cooperative, help seeking, offering no complaints to this RN. Speaking with CARE team at this time. Methadone verified by this RN via [facility].
--- NOTE | 2024-06-26 11:04 | HE.PHANOTE ---
re methadone: last dose 165 mg given 06/24/24 @[facility] [phone]
[2024-06-26] MEDS: methADONE HCl 20 MG/2 ML ORAL.CONC 165 MG PO (11:44)
--- NOTE | 2024-06-26 11:56 | MHC.CARE ---
Pt does not meet criteria for IPLOC or higher level of care. Will be referred to detox's today and per Dr. Monk may stay in the ED overnight to resume detox bed search tomorrow if bed is not secured today.
--- NOTE | 2024-06-26 12:15 | PHA.MEDREC ---
Pharmacy Consult ? Medication Reconciliation Pharmacy has completed the medication reconciliation.PHARMACY HAS REVIEWED MED REC DONE BY NURSING
[2024-06-26] MEDS: Topiramate 25 MG TABLET PO ×2 (12:22→20:38)
[2024-06-26] MEDS: buPROPion HCl XL 150 MG TAB.ER.24H PO (12:22)
[2024-06-26] MEDS: Gabapentin 300 MG CAPSULE PO ×2 (12:22→20:38)
[2024-06-26] MEDS: Nicotine 21 MG PATCH.TD24 TRANSDERMA (12:22)
[2024-06-26] MEDS: hydrOXYzine HCL 25 MG TABLET PO ×2 (12:22→20:38)
--- NOTE | 2024-06-26 13:23 | MHC.CARE ---
T/W contacted the [facility] and there are no open detox beds today. Pt can follow up with recovery tomorrow.
[2024-06-26] MEDS: Nicotine Polacrilex Lozenge 4 MG LOZENGE BUCCAL (19:01)
--- NOTE | 2024-06-26 19:37 | PC.NURSE ---
patient appears to remain at rest presently requested nicotine replacement soon after t/w's arrival [facility] unit. cordial in interactions w staff appears in no distress.
[2024-06-26 20:15] VITALS: BP 125/79; PULSE 93; RESP 16; TEMP 36.6; O2SAT 96
[2024-06-26] MEDS: Melatonin 3 MG TABLET 6 MG PO (20:37)
--- NOTE | 2024-06-27 | ECG_ITS ---
Test Reason : R/O QTC PROLONGATION Blood Pressure : / mmHG Vent. Rate : 081 BPM Atrial Rate : 081 BPM P-R Int : 140 ms QRS Dur : 088 ms QT Int : 398 ms P-R-T Axes : 059 044 029 degrees QTc Int : 462 ms Normal sinus rhythm Normal ECG No previous ECGs available Referred By: Amilcar Lozada Electronically Signed By:DEEPA CORTEZ
[2024-06-27 05:53] VITALS: BP 108/75; PULSE 91; RESP 17; TEMP 36.4; O2SAT 98
--- NOTE | 2024-06-27 07:49 | PC.NURSE ---
Assumed care of patient at 0645, patient appears to be sleeping in no apparent distress this am, respirations even and unlabored. Continue plan of care for detox bedsearch at this time
[2024-06-27] MEDS: hydrOXYzine HCL 25 MG TABLET PO ×4 (08:06→21:41)
[2024-06-27] MEDS: Gabapentin 300 MG CAPSULE PO ×2 (08:06→21:41)
[2024-06-27] MEDS: Topiramate 25 MG TABLET PO ×2 (08:06→21:40)
[2024-06-27] MEDS: Nicotine 21 MG PATCH.TD24 TRANSDERMA (08:06)
[2024-06-27] MEDS: buPROPion HCl XL 150 MG TAB.ER.24H PO (08:06)
[2024-06-27] MEDS: methADONE HCl 20 MG/2 ML ORAL.CONC 165 MG PO (08:22)
--- NOTE | 2024-06-27 08:29 | MHC.RECOVRN ---
Pts referral currently being reviewed by [facility].
[2024-06-27] MEDS: Nicotine Polacrilex Lozenge 4 MG LOZENGE BUCCAL ×4 (08:40→22:01)
--- NOTE | 2024-06-27 12:53 | MHC.RECOVRN ---
Spoke with GIGI Soliman, at [facility] who informed t/w pt had left [facility] on 06/23 after being there for 16 days. Due to pt only being in the community x 2 days, he does not meet criteria for ATS. Met with pt to discuss options and pt states Well I came in because I was feeling suicidal. Plan for pt to meet with CARE Team again.
[2024-06-27 17:29] VITALS: BMI 28.7
[2024-06-27 17:31] VITALS: BP 120/73; PULSE 80; RESP 16; TEMP 36.4; O2SAT 97
--- NOTE | 2024-06-27 18:21 | PC.ADMIT ---
Addendum entered and electronically signed by Larisa Barney RN 06/27/24 19:38: Skin check done upon admission with exchange operator with 2 staff members present. Original Note: This is the 1st admission for this 28 y.o. male to this [facility] at [facility]. Referred by [facility] Care Team with diagnosis Unspecified Depressive Disorder, Cocaine Use Disorder, Severe, Opioid Use Disorder, Severe. Nurse to nurse done with [facility] ED pod prior to admission to unit. CV signed with Dr Kapoor. Arrrived on unit at 1725 and placed on 15 min safety checks. Precipitating events to admission: self presented to [facility] ED reporting SI with no plan and use of cocaine/heroin on 06/26/24. Reported he was at [facility] x16 days and left AMA 4 days prior with a female resident. Had been using IV heroin/cocaine x3 days in motel with this female. Female was pulled over and arrested for possession when she left motel to purchase drugs. Pt unable to stay with mother due to conflict with sister, so he is currently homeless. Tox screen positive for Cocaine, Fentanyl, Opiates, Methadone and pt acknowledges use of all. [facility] dosage given in pod. Denies current medical issues. Cooperative during admission process. Rates depression #8, anxiety #7 on scale 1-10(10 worse). Denies SI/HI, denies AH/VH. Reports craving all substances tox screen positive for. Reports Methadone helps with cravings, but uses substances on top of daily Methadone so Methadone effects wear off. Requesting prn Clonidine, Dottie Humphrey, covering prescriber informed.
[2024-06-27 20:00] VITALS: BP 119/74; PULSE 94; RESP 15; TEMP 36.4; O2SAT 97
[2024-06-27] MEDS: Melatonin 3 MG TABLET 6 MG PO (21:40)
[2024-06-28 08:00] VITALS: BP 120/67; PULSE 68; RESP 16; TEMP 36.4; O2SAT 97
[2024-06-28] MEDS: methADONE HCl 20 MG/2 ML ORAL.CONC 165 MG PO (08:28)
[2024-06-28] MEDS: buPROPion HCl XL 150 MG TAB.ER.24H PO (08:32)
[2024-06-28] MEDS: hydrOXYzine HCL 25 MG TABLET PO ×2 (08:32→12:45)
[2024-06-28] MEDS: Topiramate 25 MG TABLET PO ×2 (08:32→21:24)
[2024-06-28] MEDS: Gabapentin 300 MG CAPSULE PO ×2 (08:32→21:23)
[2024-06-28] MEDS: Nicotine Polacrilex Lozenge 4 MG LOZENGE BUCCAL ×3 (08:33→15:36)
[2024-06-28] MEDS: Nicotine 21 MG PATCH.TD24 TRANSDERMA (08:41)
--- NOTE | 2024-06-28 08:43 | P.HPPS_ITS ---
HPI Date of Service: 06/28/24 Chief Complaint: SI HPI Narrative: per CARE team tania pt self-presented to [facility] c/o SI without plan. he reported having been at [facility] until 4 days prior when he left with a woman and used IV cocaine and heroin with her in a hotel room until she was arrested while out buying some more drugs. he then left the hotel feeling depressed and hopeless and brought himself to the hospital. he is recently homeless, having been asked to leave his mother's home due to ongoing conflict with his sister. no h/o psych hosp, SA, outpt Tx in the past 8 yrs. substantial h/o substance abuse Tx. in methadone program. on interview with , narrative c/w the above. pt reports h/o zoloft Rx and is currently on wellbutrin and gabapentin. agreeable to restart zoloft and increase wellbutrin. also c/o opioid cravings, agrees to increase methadone to 170 mg daily. asking for re-referral to rehab; was at [facility] for 16 days until 4 days prior to admission. endorses SI for some period today, states it comes and goes. no other complaints or requests. Past Psychiatric History: hosps: none SA: none SIB: h/o cutting x 1 HIB: none outpt: h/o therapy about 8 years ago h/o zoloft Rx. currently on wellbutrin and gabapentin from PCP Medical Evaluation Reviewed: Yes [facility] Medical History (Updated 06/26/24 @ 12:13 by Margaret Garcia [facility]) Hepatitis C Anxiety Foreign body (FB) in soft tissue Smoker Hx of substance abuse Surgical History No significant past surgical history Family History: father - suicided. depression, opioids. mother - cocaine, alcohol, heroin. attempted suicide. sister - dep/anx. xanax, cannabis. Social History: homeless. no income. GED. last working about a year ago at a [employer]. Substance History: tobacco - 1/2 ppd, also vapes cannabis - none alcohol - several drinks daily for the past 3-4 days. cocaine - IV, day of presentation. utox POS. opioids - IV, anya of presentation. utox opiates, fentanyl POS. methadone POS (on maintenance). stimulants - denies denies use of other substances of abuse. h/o multiple detoxes and rehabs Trauma History: denies Diagnostics Vital Signs (24Hr): Vital Signs - 24 hr 06/27/24 17:31 06/27/24 20:00 06/28/24 08:00 Temperature 97.5 F 97.5 F 97.6 F Pulse Rate 80 94 68 Respiratory Rate 16 15 16 Blood Pressure 120/73 119/74 120/67 Pulse Oximetry 97 97 97 Oxygen Delivery Method Room Air Room Air Room Air BMI result Body Mass Index 28.7 Labs 06/26/24 04:51 06/26/24 04:51 Labs: Laboratory Results - last 48 hr 06/26/24 06/26/24 08:35 08:36 Urine Color Yellow Urine Appearance Clear Urine pH 6.5 Ur Specific Dagmar 1.020 Urine Protein Negative Urine Glucose (UA) Negative Urine Ketones Trace Urine Blood Negative Urine Nitrite Negative Ur Leukocyte Esterase Small (1+) H Urine RBC 0-2 Urine WBC 11-20 H Ur Squamous Epith Cells 0-2 Urine Bacteria None Seen Hyaline Casts 3-5 Urine Opiates Screen POSITIVE H Ur Buprenorphine Scrn Not Detected Ur Oxycodone Screen Not Detected Urine Methadone Screen Positive H Urine Fentanyl Screen POSITIVE H Ur Barbiturates Screen Not Detected Ur Phencyclidine Scrn Not Detected Ur Amphetamines Screen Not Detected U Benzodiazepines Scrn Not Detected Urine Cocaine Screen POSITIVE H U Marijuana (THC) Screen Not Detected Meds/Allergies Meds Home Medications ?Medication ?Instructions ?Recorded ?Confirmed ?Type methadone 10 mg/mL oral concentrate 165 mg PO DAILY 03/23/23 06/26/24 History bupropion HCl 150 mg tablet,12 hr 150 mg PO DAILY 06/26/24 06/26/24 History sustained-release hydroxyzine HCl 25 mg tablet 25 mg PO QID 06/26/24 06/26/24 History ibuprofen 600 mg tablet 600 mg PO Q6H PRN Mild Pain (Scale 06/26/24 06/26/24 History Score 1-4) melatonin 5 mg tablet 5 mg PO BEDTIME 06/26/24 06/26/24 History nicotine 21 mg/24 hr daily 1 patch topical DAILY 06/26/24 06/26/24 History transdermal patch topiramate 25 mg tablet 25 mg PO BID 06/26/24 06/26/24 History Allergies Allergies Allergy/AdvReac Type Severity Reaction Status Date / Time No Known Allergies Allergy Verified 06/26/24 03:55 [No Known Allergies*] Mental Status Exam Mental Status Exam Narrative: adequately dressed and groomed. cooperative. no PMA/PMR. speech nml rate, decr amount, nml loudness, decr prosody, nml latency. thoughts linear and logical without delusions or paranoia. affect constricted, hypo-intense, non- labile. mood a little anxious. reports SI earlier today. no SIBI/HI/AVH. Assessment & Plan Assessment & Plan (1) Depression: Status: Acute Code(s): F32.A - Depression, unspecified (2) Multiple substance abuse: Status: Acute Code(s): F19.10 - Other psychoactive substance abuse, uncomplicated Plan increase methadone to 170 mg daily start zoloft 50 mg daily today increase wellbutrin XL from 150 mg to 300 mg as of tomorrow. otherwise continue outpt regimen. refer for rehabs. Patient educated on: diagnosis, medication risk/benefits and substance abuse Reason for continued inpatient stay Substantial Risk for: harm to self, inability to function and rapid decompensation Statement Statement: I have reviewed the history and physical and performed a pertinent examination on my patient. No changes have occurred unless specified. If the History and Physical was not performed prior to admission, the Hospitalist's service will be consulted for completing the admission physical. Time Spent With Patient Time: Total time managing care of this patient today __55__ minutes.
[2024-06-28 13:04] VITALS: BP 139/83
[2024-06-28] MEDS: cloNIDine HCL 0.1 MG TABLET PO (13:04)
[2024-06-28] MEDS: Sertraline HCL 50 MG TABLET PO (15:36)
[2024-06-28 20:00] VITALS: BP 106/60; PULSE 75; RESP 16; TEMP 36.5; O2SAT 95
[2024-06-28] MEDS: Melatonin 3 MG TABLET 6 MG PO (21:24)
[2024-06-29 07:40] VITALS: BP 108/55; PULSE 81; RESP 14; RESP 16; TEMP 36.4; O2SAT 98
[2024-06-29] MEDS: methADONE HCl 20 MG/2 ML ORAL.CONC 170 MG PO (08:14)
[2024-06-29] MEDS: buPROPion HCl XL 300 MG TAB.ER.24H PO (08:17)
[2024-06-29] MEDS: Gabapentin 300 MG CAPSULE PO ×2 (08:17→21:05)
[2024-06-29] MEDS: Sertraline HCL 50 MG TABLET PO (08:17)
[2024-06-29] MEDS: Topiramate 25 MG TABLET PO ×2 (08:17→21:06)
[2024-06-29] MEDS: Nicotine 21 MG PATCH.TD24 TRANSDERMA (08:20)
[2024-06-29] MEDS: Nicotine Polacrilex Lozenge 4 MG LOZENGE BUCCAL ×5 (08:20→17:53)
--- NOTE | 2024-06-29 14:35 | MHC.RECOVRN ---
AUDIT-C Brief Intervention Pt had positive screen for unhealthy alcohol use on admission, subsequently met with t/w to discuss alcohol use and recovery supports/options. Pt voices concern regarding alcohol use and is aware that drinking at unhealthy levels is known to increase risk of alcohol related health problems. Pt reports drinking a few nips and a couple beers daily. Pt denies ever feeling withdrawal symptoms when he does not drink. Denies cravings for alcohol. Pt expresses how alcohol use has impacted health, including negative impact on mental health. Discussed risk reduction strategies including drinking below the recommended limit. Provided pt with written resources including information on inpatient and outpatient treatment, JULIO CESAR, harm reduction, and recovery coaching. Pt plans to meet with the power and recovery shift engineer this evening to gain more support. Pt provided with t/w contact information if questions or concerns arise. Denies other questions or concerns at this time.
--- NOTE | 2024-06-29 16:29 | P.PNPSI_ITS ---
Subjective Subjective Date of Service: 06/29/24 Reason For Visit: SI Interim History: calm, cooperative. no complaints. per staff, c/o mod anx/dep. taking meds. broad affect. no AVH. pleasant. SI, no plan. slept about 7 hours. Mental Status Exam Mental Status Exam Narrative: adequately dressed and groomed. cooperative. no PMA/PMR. speech nml rate, decr amount, nml loudness, decr prosody, nml latency. thoughts linear and logical without delusions or paranoia. affect constricted, hypo-intense, non- labile. +SI, no plan. no SIBI/HI/AVH expressed. Diagnostics Vital Signs (24Hr): Vital Signs - 24 hr 06/28/24 20:00 06/29/24 07:40 06/29/24 07:40 Temperature 97.7 F 97.6 F 97.6 F Pulse Rate 75 81 81 Respiratory Rate 16 14 16 Blood Pressure 106/60 108/55 L 108/55 L Pulse Oximetry 95 98 98 Oxygen Delivery Method Room Air Room Air Room Air BMI result Body Mass Index 28.7 Labs 06/26/24 04:51 06/26/24 04:51 Medications Medications Current Medications Acetaminophen (Acetaminophen 325 Mg Tablet) 650 mg PO Q6H PRN PRN Reason: Headache/Pain Mild Scale (1-3) Al Hydroxide/Mg Hydroxide (Magnesium Hydrox/Alum Hydrox 30 Ml Oral.Susp) 30 ml PO Q6H PRN PRN Reason: Heartburn/Nausea Bupropion HCl (Bupropion Hcl Xl 300 Mg Tab.Er.24h) 300 mg PO DAILY [facility] Last Admin: 06/29/24 08:17 Dose: 300 mg Clonidine HCl (Clonidine Hcl 0.1 Mg Tablet) 0.1 mg PO BID PRN; Protocol PRN Reason: anxiety/opioid withdrawal Last Admin: 06/28/24 13:04 Dose: 0.1 mg Gabapentin (Gabapentin 300 Mg Capsule) 300 mg PO BID [facility] Last Admin: 06/29/24 08:17 Dose: 300 mg Hydroxyzine HCl (Hydroxyzine Hcl 25 Mg Tablet) 25 mg PO QID PRN PRN Reason: anxiety Ibuprofen (Ibuprofen 600 Mg Tablet) 600 mg PO Q6H PRN PRN Reason: Mild Pain (Scale Score 1-4) Magnesium Hydroxide (Milk Of Magnesia 30 Ml Oral.Susp) 30 ml PO DAILY PRN PRN Reason: Constipation Melatonin (Melatonin 3 Mg Tablet) 6 mg PO BEDTIME [facility] Last Admin: 06/28/24 21:24 Dose: 6 mg Methadone HCl (Methadone Hcl 20 Mg/2 Ml Oral.Conc) 170 mg PO DAILY [facility] Last Admin: 06/29/24 08:14 Dose: 170 mg Nicotine (Nicotine 21 Mg Patch.Td24) 21 mg TRANSDERMA DAILY [facility] Last Admin: 06/29/24 08:44 Dose: Not Given Nicotine Polacrilex (Nicotine Polacrilex 2 Mg Gum) 4 mg BUCCAL Q2H PRN PRN Reason: Nicotine Cravings Nicotine Polacrilex (Nicotine Polacrilex Lozenge 4 Mg Lozenge) 4 mg BUCCAL Q2H PRN PRN Reason: Nicotine Cravings Last Admin: 06/29/24 15:15 Dose: 4 mg Sertraline HCl (Sertraline Hcl 50 Mg Tablet) 50 mg PO DAILY [facility] Last Admin: 06/29/24 08:17 Dose: 50 mg Topiramate (Topiramate 25 Mg Tablet) 25 mg PO BID [facility] Last Admin: 06/29/24 08:17 Dose: 25 mg Trazodone HCl (Trazodone Hcl 50 Mg Tablet) 50 mg PO BEDTIME MRX1 PRN PRN Reason: Insomnia Allergies Allergies Allergy/AdvReac Type Severity Reaction Status Date / Time No Known Allergies Allergy Verified 06/26/24 03:55 [No Known Allergies*] Assessment & Plan Assessment & Plan (1) Depression: Status: Acute Code(s): F32.A - Depression, unspecified (2) Multiple substance abuse: Status: Acute Code(s): F19.10 - Other psychoactive substance abuse, uncomplicated Plan 06/28: increase methadone to 170 mg daily. start zoloft 50 mg daily today. increase wellbutrin XL from 150 mg to 300 mg as of tomorrow. otherwise continue outpt regimen. refer for rehabs. 06/29: no problems with med changes. continue current mgmt. referral to [facility] underway. Reason for continued inpatient stay Substantial Risk for: harm to self, inability to function and rapid decompensation Time Spent With Patient Time: Total time managing care of this patient today __25__ minutes.
[2024-06-29 17:50] VITALS: BP 127/77; PULSE 93; RESP 16; TEMP 36.4; O2SAT 99
[2024-06-29 17:52] VITALS: BP 127/77
[2024-06-29] MEDS: cloNIDine HCL 0.1 MG TABLET PO (17:52)
[2024-06-29 20:00] VITALS: BP 114/61; PULSE 75; RESP 16; TEMP 36.5; O2SAT 96
[2024-06-29] MEDS: Melatonin 3 MG TABLET 6 MG PO (21:06)
[2024-06-30 07:00] VITALS: BMI 29.1
[2024-06-30 08:00] VITALS: BP 119/69; PULSE 81; RESP 16; TEMP 36.8; O2SAT 96
[2024-06-30] MEDS: methADONE HCl 20 MG/2 ML ORAL.CONC 170 MG PO (08:21)
[2024-06-30] MEDS: Sertraline HCL 50 MG TABLET PO (08:52)
[2024-06-30] MEDS: Topiramate 25 MG TABLET PO ×2 (08:52→22:23)
[2024-06-30] MEDS: Nicotine Polacrilex Lozenge 4 MG LOZENGE BUCCAL ×4 (08:52→16:34)
[2024-06-30] MEDS: buPROPion HCl XL 300 MG TAB.ER.24H PO (08:52)
[2024-06-30] MEDS: Nicotine 21 MG PATCH.TD24 TRANSDERMA (08:52)
[2024-06-30] MEDS: Gabapentin 300 MG CAPSULE PO ×2 (08:52→22:22)
[2024-06-30] MEDS: Acetaminophen 325 MG TABLET 650 MG PO ×2 (09:04→22:22)
[2024-06-30 15:46] VITALS: BP 125/75
[2024-06-30] MEDS: cloNIDine HCL 0.1 MG TABLET PO ×2 (15:48→22:23)
[2024-06-30 19:45] VITALS: BP 110/66; PULSE 74; RESP 16; TEMP 36.4; O2SAT 96
--- NOTE | 2024-06-30 20:54 | HO.PSYCHPN ---
Subjective Subjective Date of Service: 06/30/24 Reason For Visit: SI Interim History: calm, cooperative. no complaints or requests. awaiting word from rehabs. per staff, taking meds, met with leadership coach. no SI/HI/AVH. refusing labs. awaiting word from [facility] well as [facility]. Mental Status Exam Mental Status Exam Narrative: adequately dressed and groomed. cooperative. no PMA/PMR. speech nml rate, decr amount, nml loudness, decr prosody, nml latency. thoughts linear and logical without delusions or paranoia. affect constricted, hypo-intense, non-labile. no SI/SIBI/HI/AVH expressed. Diagnostics Vital Signs (24Hr): Vital Signs - 24 hr 06/30/24 08:00 06/30/24 15:46 Temperature 98.2 F Pulse Rate 81 Respiratory Rate 16 Blood Pressure 119/69 125/75 Pulse Oximetry 96 Oxygen Delivery Method Room Air BMI result Body Mass Index 29.1 Labs 06/26/24 04:51 06/26/24 04:51 Medications Medications Current Medications Acetaminophen (Acetaminophen 325 Mg Tablet) 650 mg PO Q6H PRN PRN Reason: Headache/Pain Mild Scale (1-3) Last Admin: 06/30/24 09:04 Dose: 650 mg Al Hydroxide/Mg Hydroxide (Magnesium Hydrox/Alum Hydrox 30 Ml Oral.Susp) 30 ml PO Q6H PRN PRN Reason: Heartburn/Nausea Bupropion HCl (Bupropion Hcl Xl 300 Mg Tab.Er.24h) 300 mg PO DAILY [facility] Last Admin: 06/30/24 08:52 Dose: 300 mg Clonidine HCl (Clonidine Hcl 0.1 Mg Tablet) 0.1 mg PO BID PRN; Protocol PRN Reason: anxiety/opioid withdrawal Last Admin: 06/30/24 15:48 Dose: 0.1 mg Gabapentin (Gabapentin 300 Mg Capsule) 300 mg PO BID [facility] Last Admin: 06/30/24 08:52 Dose: 300 mg Hydroxyzine HCl (Hydroxyzine Hcl 25 Mg Tablet) 25 mg PO QID PRN PRN Reason: anxiety Ibuprofen (Ibuprofen 600 Mg Tablet) 600 mg PO Q6H PRN PRN Reason: Mild Pain (Scale Score 1-4) Magnesium Hydroxide (Milk Of Magnesia 30 Ml Oral.Susp) 30 ml PO DAILY PRN PRN Reason: Constipation Melatonin (Melatonin 3 Mg Tablet) 6 mg PO BEDTIME [facility] Last Admin: 06/29/24 21:06 Dose: 6 mg Methadone HCl (Methadone Hcl 20 Mg/2 Ml Oral.Conc) 170 mg PO DAILY [facility] Last Admin: 06/30/24 08:21 Dose: 170 mg Nicotine (Nicotine 21 Mg Patch.Td24) 21 mg TRANSDERMA DAILY [facility] Last Admin: 06/30/24 08:52 Dose: 21 mg Nicotine Polacrilex (Nicotine Polacrilex 2 Mg Gum) 4 mg BUCCAL Q2H PRN PRN Reason: Nicotine Cravings Nicotine Polacrilex (Nicotine Polacrilex Lozenge 4 Mg Lozenge) 4 mg BUCCAL Q2H PRN PRN Reason: Nicotine Cravings Last Admin: 06/30/24 16:34 Dose: 4 mg Sertraline HCl (Sertraline Hcl 50 Mg Tablet) 50 mg PO DAILY [facility] Last Admin: 06/30/24 08:52 Dose: 50 mg Topiramate (Topiramate 25 Mg Tablet) 25 mg PO BID [facility] Last Admin: 06/30/24 08:52 Dose: 25 mg Trazodone HCl (Trazodone Hcl 50 Mg Tablet) 50 mg PO BEDTIME MRX1 PRN PRN Reason: Insomnia Allergies Allergies Allergy/AdvReac Type Severity Reaction Status Date / Time No Known Allergies Allergy Verified 06/26/24 03:55 [No Known Allergies*] Assessment & Plan Assessment & Plan (1) Depression: Status: Acute Code(s): F32.A - Depression, unspecified (2) Multiple substance abuse: Status: Acute Code(s): F19.10 - Other psychoactive substance abuse, uncomplicated Plan 06/28: increase methadone to 170 mg daily. start zoloft 50 mg daily today. increase wellbutrin XL from 150 mg to 300 mg as of tomorrow. otherwise continue outpt regimen. refer for rehabs. 06/29: no problems with med changes. continue current mgmt. [facility]. 06/30: stable presentation. no safety concerns expressed today. continue currenet mgmt. awaiting word from rehabs. Reason for continued inpatient stay Substantial Risk for: inability to function and rapid decompensation Time Spent With Patient Time: Total time managing care of this patient today __25__ minutes.
[2024-06-30] MEDS: hydrOXYzine HCL 25 MG TABLET PO (22:22)
[2024-06-30] MEDS: Melatonin 3 MG TABLET 6 MG PO (22:22)
[2024-06-30] MEDS: Nicotine Polacrilex 2 MG GUM 4 MG BUCCAL (22:24)
[2024-07-01 07:55] VITALS: BP 102/61; PULSE 72; RESP 16; TEMP 36.6; O2SAT 97
[2024-07-01] MEDS: methADONE HCl 20 MG/2 ML ORAL.CONC 170 MG PO (08:23)
[2024-07-01] MEDS: Topiramate 25 MG TABLET PO ×2 (09:19→22:05)
[2024-07-01] MEDS: Gabapentin 300 MG CAPSULE PO ×2 (09:19→22:05)
[2024-07-01] MEDS: buPROPion HCl XL 300 MG TAB.ER.24H PO (09:19)
[2024-07-01] MEDS: Nicotine 21 MG PATCH.TD24 TRANSDERMA (09:19)
[2024-07-01] MEDS: Sertraline HCL 50 MG TABLET PO (09:19)
[2024-07-01] MEDS: Nicotine Polacrilex Lozenge 4 MG LOZENGE BUCCAL ×5 (09:32→22:10)
[2024-07-01] MEDS: Acetaminophen 325 MG TABLET 650 MG PO ×2 (14:03→22:05)
--- NOTE | 2024-07-01 17:48 | P.PNPSI_ITS ---
Subjective Subjective Date of Service: 07/01/24 Reason For Visit: SI Interim History: no questions or complaints. no requests. per staff, resistant to staff questions. refusing labs. nodding off in groups. Mental Status Exam Mental Status Exam Narrative: adequately dressed and groomed. cooperative. no PMA/PMR. speech nml rate, decr amount, nml loudness, decr prosody, nml latency. thoughts linear and logical without delusions or paranoia. affect constricted, hypo-intense, non- labile. no SI/SIBI/HI/AVH expressed. Diagnostics Vital Signs (24Hr): Vital Signs - 24 hr 06/30/24 19:45 07/01/24 07:55 Temperature 97.6 F 97.8 F Pulse Rate 74 72 Respiratory Rate 16 16 Blood Pressure 110/66 102/61 Pulse Oximetry 96 97 Oxygen Delivery Method Room Air Room Air BMI result Body Mass Index 29.1 Labs 06/26/24 04:51 06/26/24 04:51 Medications Medications Current Medications Acetaminophen (Acetaminophen 325 Mg Tablet) 650 mg PO Q6H PRN PRN Reason: Headache/Pain Mild Scale (1-3) Last Admin: 07/01/24 14:03 Dose: 650 mg Al Hydroxide/Mg Hydroxide (Magnesium Hydrox/Alum Hydrox 30 Ml Oral.Susp) 30 ml PO Q6H PRN PRN Reason: Heartburn/Nausea Bupropion HCl (Bupropion Hcl Xl 300 Mg Tab.Er.24h) 300 mg PO DAILY [facility] Last Admin: 07/01/24 09:19 Dose: 300 mg Clonidine HCl (Clonidine Hcl 0.1 Mg Tablet) 0.1 mg PO BID PRN; Protocol PRN Reason: anxiety/opioid withdrawal Last Admin: 06/30/24 22:23 Dose: 0.1 mg Gabapentin (Gabapentin 300 Mg Capsule) 300 mg PO BID [facility] Last Admin: 07/01/24 09:19 Dose: 300 mg Hydroxyzine HCl (Hydroxyzine Hcl 25 Mg Tablet) 25 mg PO QID PRN PRN Reason: anxiety Last Admin: 06/30/24 22:22 Dose: 25 mg Ibuprofen (Ibuprofen 600 Mg Tablet) 600 mg PO Q6H PRN PRN Reason: Mild Pain (Scale Score 1-4) Magnesium Hydroxide (Milk Of Magnesia 30 Ml Oral.Susp) 30 ml PO DAILY PRN PRN Reason: Constipation Melatonin (Melatonin 3 Mg Tablet) 6 mg PO BEDTIME [facility] Last Admin: 06/30/24 22:22 Dose: 6 mg Methadone HCl (Methadone Hcl 20 Mg/2 Ml Oral.Conc) 170 mg PO DAILY [facility] Last Admin: 07/01/24 08:23 Dose: 170 mg Nicotine (Nicotine 21 Mg Patch.Td24) 21 mg TRANSDERMA DAILY [facility] Last Admin: 07/01/24 09:19 Dose: 21 mg Nicotine Polacrilex (Nicotine Polacrilex 2 Mg Gum) 4 mg BUCCAL Q2H PRN PRN Reason: Nicotine Cravings Last Admin: 06/30/24 22:24 Dose: 4 mg Nicotine Polacrilex (Nicotine Polacrilex Lozenge 4 Mg Lozenge) 4 mg BUCCAL Q2H PRN PRN Reason: Nicotine Cravings Last Admin: 07/01/24 14:40 Dose: 4 mg Sertraline HCl (Sertraline Hcl 50 Mg Tablet) 50 mg PO DAILY [facility] Last Admin: 07/01/24 09:19 Dose: 50 mg Topiramate (Topiramate 25 Mg Tablet) 25 mg PO BID [facility] Last Admin: 07/01/24 09:19 Dose: 25 mg Trazodone HCl (Trazodone Hcl 50 Mg Tablet) 50 mg PO BEDTIME MRX1 PRN PRN Reason: Insomnia Allergies Allergies Allergy/AdvReac Type Severity Reaction Status Date / Time No Known Allergies Allergy Verified 06/26/24 03:55 [No Known Allergies*] Assessment & Plan Assessment & Plan (1) Depression: Status: Acute Code(s): F32.A - Depression, unspecified (2) Multiple substance abuse: Status: Acute Code(s): F19.10 - Other psychoactive substance abuse, uncomplicated Plan 06/28: increase methadone to 170 mg daily. start zoloft 50 mg daily today. increase wellbutrin XL from 150 mg to 300 mg as of tomorrow. otherwise continue outpt regimen. refer for rehabs. 06/29: no problems with med changes. continue current mgmt. referral to [facility] underway. 06/30: stable presentation. no safety concerns expressed today. continue current mgmt. awaiting word from rehabs. 07/01: stable. no issues. contnue current mgmt. Reason for continued inpatient stay Substantial Risk for: inability to function and rapid decompensation Time Spent With Patient Time: Total time managing care of this patient today __25__ minutes.
[2024-07-01 18:13] VITALS: BP 134/69; PULSE 84; RESP 16
[2024-07-01] MEDS: cloNIDine HCL 0.1 MG TABLET PO ×2 (18:15→22:07)
[2024-07-01 19:40] VITALS: BP 116/59; PULSE 83; RESP 16; TEMP 36.3; O2SAT 98
[2024-07-01] MEDS: Nicotine Polacrilex 2 MG GUM 4 MG BUCCAL (20:35)
[2024-07-01] MEDS: hydrOXYzine HCL 25 MG TABLET PO (22:05)
[2024-07-01] MEDS: Melatonin 3 MG TABLET 6 MG PO (22:05)
[2024-07-02 08:00] VITALS: BP 121/70; PULSE 78; RESP 16; TEMP 36.6; O2SAT 99
[2024-07-02 08:10] VITALS: BP 121/70; PULSE 78; RESP 16; TEMP 36.6; O2SAT 99
[2024-07-02] MEDS: methADONE HCl 20 MG/2 ML ORAL.CONC 170 MG PO (08:11)
[2024-07-02] MEDS: Gabapentin 300 MG CAPSULE PO ×2 (08:13→22:08)
[2024-07-02] MEDS: Sertraline HCL 50 MG TABLET PO (08:13)
[2024-07-02] MEDS: Ibuprofen 600 MG TABLET PO (08:13)
[2024-07-02] MEDS: Nicotine 21 MG PATCH.TD24 TRANSDERMA (08:14)
[2024-07-02] MEDS: buPROPion HCl XL 300 MG TAB.ER.24H PO (08:14)
[2024-07-02] MEDS: Topiramate 25 MG TABLET PO ×2 (08:14→22:08)
[2024-07-02] MEDS: Nicotine Polacrilex Lozenge 4 MG LOZENGE BUCCAL ×5 (10:23→22:14)
--- NOTE | 2024-07-02 17:33 | P.PNPSI_ITS ---
Subjective Subjective Date of Service: 07/02/24 Reason For Visit: SI Interim History: calm, cooperative. c/o tooth ache, agrees to ibuprofen. otherwise no complaints or requests. reports [facility] and they told him to call again thursday and that they have 2 discharges thursday. per staff, yesterday pt c/o dep/anx. visible, some sociality. attending groups, taking meds. slept 8 hours. c/o dental pain. Mental Status Exam Mental Status Exam Narrative: adequately dressed and groomed. cooperative. no PMA/PMR. speech nml rate, decr amount, nml loudness, decr prosody, nml latency. thoughts linear and logical without delusions or paranoia. affect constricted, hypo-intense, non- labile. no SI/SIBI/HI/AVH expressed. Diagnostics Vital Signs (24Hr): Vital Signs - 24 hr 07/01/24 18:13 07/01/24 19:40 07/02/24 08:00 Temperature 97.4 F 97.8 F Pulse Rate 84 83 78 Respiratory Rate 16 16 16 Blood Pressure 134/69 116/59 L 121/70 Pulse Oximetry 98 99 Oxygen Delivery Method Room Air Room Air 07/02/24 08:10 Temperature 97.8 F Pulse Rate 78 Respiratory Rate 16 Blood Pressure 121/70 Pulse Oximetry 99 Oxygen Delivery Method Room Air BMI result Body Mass Index 29.1 Labs 06/26/24 04:51 06/26/24 04:51 Medications Medications Current Medications Acetaminophen (Acetaminophen 325 Mg Tablet) 650 mg PO Q6H PRN PRN Reason: Headache/Pain Mild Scale (1-3) Last Admin: 07/01/24 22:05 Dose: 650 mg Al Hydroxide/Mg Hydroxide (Magnesium Hydrox/Alum Hydrox 30 Ml Oral.Susp) 30 ml PO Q6H PRN PRN Reason: Heartburn/Nausea Bupropion HCl (Bupropion Hcl Xl 300 Mg Tab.Er.24h) 300 mg PO DAILY [facility] Last Admin: 07/02/24 08:14 Dose: 300 mg Clonidine HCl (Clonidine Hcl 0.1 Mg Tablet) 0.1 mg PO BID PRN; Protocol PRN Reason: anxiety/opioid withdrawal Last Admin: 07/01/24 22:07 Dose: 0.1 mg Gabapentin (Gabapentin 300 Mg Capsule) 300 mg PO BID [facility] Last Admin: 07/02/24 08:13 Dose: 300 mg Hydroxyzine HCl (Hydroxyzine Hcl 25 Mg Tablet) 25 mg PO QID PRN PRN Reason: anxiety Last Admin: 07/01/24 22:05 Dose: 25 mg Ibuprofen (Ibuprofen 800 Mg Tablet) 800 mg PO Q8H PRN PRN Reason: Pain (scale score 1-10) Magnesium Hydroxide (Milk Of Magnesia 30 Ml Oral.Susp) 30 ml PO DAILY PRN PRN Reason: Constipation Melatonin (Melatonin 3 Mg Tablet) 6 mg PO BEDTIME [facility] Last Admin: 07/01/24 22:05 Dose: 6 mg Methadone HCl (Methadone Hcl 20 Mg/2 Ml Oral.Conc) 170 mg PO DAILY [facility] Last Admin: 07/02/24 08:11 Dose: 170 mg Nicotine (Nicotine 21 Mg Patch.Td24) 21 mg TRANSDERMA DAILY [facility] Last Admin: 07/02/24 08:14 Dose: 21 mg Nicotine Polacrilex (Nicotine Polacrilex 2 Mg Gum) 4 mg BUCCAL Q2H PRN PRN Reason: Nicotine Cravings Last Admin: 07/01/24 20:35 Dose: 4 mg Nicotine Polacrilex (Nicotine Polacrilex Lozenge 4 Mg Lozenge) 4 mg BUCCAL Q2H PRN PRN Reason: Nicotine Cravings Last Admin: 07/02/24 15:51 Dose: 4 mg Sertraline HCl (Sertraline Hcl 50 Mg Tablet) 50 mg PO DAILY [facility] Last Admin: 07/02/24 08:13 Dose: 50 mg Topiramate (Topiramate 25 Mg Tablet) 25 mg PO BID [facility] Last Admin: 07/02/24 08:14 Dose: 25 mg Trazodone HCl (Trazodone Hcl 50 Mg Tablet) 50 mg PO BEDTIME MRX1 PRN PRN Reason: Insomnia Allergies Allergies Allergy/AdvReac Type Severity Reaction Status Date / Time No Known Allergies Allergy Verified 06/26/24 03:55 [No Known Allergies*] Assessment & Plan Assessment & Plan (1) Depression: Status: Acute Code(s): F32.A - Depression, unspecified (2) Multiple substance abuse: Status: Acute Code(s): F19.10 - Other psychoactive substance abuse, uncomplicated Plan 06/28: increase methadone to 170 mg daily. start zoloft 50 mg daily today. increase wellbutrin XL from 150 mg to 300 mg as of tomorrow. otherwise continue outpt regimen. refer for rehabs. 06/29: no problems with med changes. continue current mgmt. referral to [facility] underway. 06/30: stable presentation. no safety concerns expressed today. continue current mgmt. awaiting word from rehabs. 07/01: stable. no issues. continue current mgmt. 07/02: aded ibuprofen PRN dental pain. otherwise continue current mgmt. in touch [facility]. Reason for continued inpatient stay Substantial Risk for: harm to self, inability to function and rapid decompensation Time Spent With Patient Time: Total time managing care of this patient today ____ minutes.
[2024-07-02 20:00] VITALS: BP 113/58; PULSE 83; RESP 16; TEMP 36.6; O2SAT 98
[2024-07-02 20:24] VITALS: BP 123/74
[2024-07-02] MEDS: cloNIDine HCL 0.1 MG TABLET PO (20:24)
[2024-07-02] MEDS: Magnesium Hydrox/Alum Hydrox 30 ML ORAL.SUSP PO (20:24)
[2024-07-02] MEDS: hydrOXYzine HCL 25 MG TABLET PO (22:08)
[2024-07-02] MEDS: Melatonin 3 MG TABLET 6 MG PO (22:08)
[2024-07-03 07:47] VITALS: BP 100/57; PULSE 74; RESP 16; TEMP 36.6; O2SAT 96
[2024-07-03] MEDS: methADONE HCl 20 MG/2 ML ORAL.CONC 170 MG PO (08:20)
[2024-07-03] MEDS: Topiramate 25 MG TABLET PO ×2 (08:23→21:39)
[2024-07-03] MEDS: Sertraline HCL 50 MG TABLET PO (08:23)
[2024-07-03] MEDS: Ibuprofen 800 MG TABLET PO ×2 (08:23→21:39)
[2024-07-03] MEDS: Gabapentin 300 MG CAPSULE PO ×2 (08:23→21:39)
[2024-07-03] MEDS: Nicotine Polacrilex Lozenge 4 MG LOZENGE BUCCAL ×6 (08:23→20:51)
[2024-07-03] MEDS: buPROPion HCl XL 300 MG TAB.ER.24H PO (08:23)
[2024-07-03] MEDS: Nicotine 21 MG PATCH.TD24 TRANSDERMA (08:24)
[2024-07-03] MEDS: Nicotine Polacrilex 2 MG GUM 4 MG BUCCAL ×2 (10:06→21:38)
[2024-07-03 13:41] VITALS: BP 115/64
[2024-07-03] MEDS: cloNIDine HCL 0.1 MG TABLET PO ×2 (13:41→21:38)
--- NOTE | 2024-07-03 17:05 | P.PNPSI_ITS ---
Subjective Subjective Date of Service: 07/03/24 Reason For Visit: SI Interim History[facility] no issues or complaints or requests otherwise. per staff, broad affect. attending groups, taking meds. pleasant, cooperative. slept 7 hours. Mental Status Exam Mental Status Exam Narrative: adequately dressed and groomed. cooperative. no PMA/PMR. speech nml rate, decr amount, nml loudness, decr prosody, nml latency. thoughts linear and logical without delusions or paranoia. affect constricted, hypo-intense, non- labile. no SI/SIBI/HI/AVH expressed. Diagnostics Vital Signs (24Hr): Vital Signs - 24 hr 07/02/24 20:00 07/02/24 20:24 07/03/24 07:47 Temperature 98 F 97.8 F Pulse Rate 83 74 Respiratory Rate 16 16 Blood Pressure 113/58 L 123/74 100/57 L Pulse Oximetry 98 96 Oxygen Delivery Method Room Air Room Air 07/03/24 13:41 Temperature Pulse Rate Respiratory Rate Blood Pressure 115/64 Pulse Oximetry Oxygen Delivery Method BMI result Body Mass Index 29.1 Labs 06/26/24 04:51 06/26/24 04:51 Medications Medications Current Medications Acetaminophen (Acetaminophen 325 Mg Tablet) 650 mg PO Q6H PRN PRN Reason: Headache/Pain Mild Scale (1-3) Last Admin: 07/01/24 22:05 Dose: 650 mg Al Hydroxide/Mg Hydroxide (Magnesium Hydrox/Alum Hydrox 30 Ml Oral.Susp) 30 ml PO Q6H PRN PRN Reason: Heartburn/Nausea Last Admin: 07/02/24 20:24 Dose: 30 ml Bupropion HCl (Bupropion Hcl Xl 300 Mg Tab.Er.24h) 300 mg PO DAILY [facility] Last Admin: 07/03/24 08:23 Dose: 300 mg Clonidine HCl (Clonidine Hcl 0.1 Mg Tablet) 0.1 mg PO BID PRN; Protocol PRN Reason: anxiety/opioid withdrawal Last Admin: 07/03/24 13:41 Dose: 0.1 mg Gabapentin (Gabapentin 300 Mg Capsule) 300 mg PO BID [facility] Last Admin: 07/03/24 08:23 Dose: 300 mg Hydroxyzine HCl (Hydroxyzine Hcl 25 Mg Tablet) 25 mg PO QID PRN PRN Reason: anxiety Last Admin: 07/02/24 22:08 Dose: 25 mg Ibuprofen (Ibuprofen 800 Mg Tablet) 800 mg PO Q8H PRN PRN Reason: Pain (scale score 1-10) Last Admin: 07/03/24 08:23 Dose: 800 mg Magnesium Hydroxide (Milk Of Magnesia 30 Ml Oral.Susp) 30 ml PO DAILY PRN PRN Reason: Constipation Melatonin (Melatonin 3 Mg Tablet) 6 mg PO BEDTIME [facility] Last Admin: 07/02/24 22:08 Dose: 6 mg Methadone HCl (Methadone Hcl 20 Mg/2 Ml Oral.Conc) 170 mg PO DAILY [facility] Last Admin: 07/03/24 08:20 Dose: 170 mg Nicotine (Nicotine 21 Mg Patch.Td24) 21 mg TRANSDERMA DAILY [facility] Last Admin: 07/03/24 08:24 Dose: 21 mg Nicotine Polacrilex (Nicotine Polacrilex 2 Mg Gum) 4 mg BUCCAL Q2H PRN PRN Reason: Nicotine Cravings Last Admin: 07/03/24 10:06 Dose: 4 mg Nicotine Polacrilex (Nicotine Polacrilex Lozenge 4 Mg Lozenge) 4 mg BUCCAL Q2H PRN PRN Reason: Nicotine Cravings Last Admin: 07/03/24 15:18 Dose: 4 mg Sertraline HCl (Sertraline Hcl 50 Mg Tablet) 50 mg PO DAILY [facility] Last Admin: 07/03/24 08:23 Dose: 50 mg Topiramate (Topiramate 25 Mg Tablet) 25 mg PO BID [facility] Last Admin: 07/03/24 08:23 Dose: 25 mg Trazodone HCl (Trazodone Hcl 50 Mg Tablet) 50 mg PO BEDTIME MRX1 PRN PRN Reason: Insomnia Allergies Allergies Allergy/AdvReac Type Severity Reaction Status Date / Time No Known Allergies Allergy Verified 06/26/24 03:55 [No Known Allergies*] Assessment & Plan Assessment & Plan (1) Depression: Status: Acute Code(s): F32.A - Depression, unspecified (2) Multiple substance abuse: Status: Acute Code(s): F19.10 - Other psychoactive substance abuse, uncomplicated Plan 06/28: increase methadone to 170 mg daily. start zoloft 50 mg daily today. increase wellbutrin XL from 150 mg to 300 mg as of tomorrow. otherwise continue outpt regimen. refer for rehabs. 06/29: no problems with med changes. continue current mgmt. referral to [facility] underway. 06/30: stable presentation. no safety concerns expressed today. continue current mgmt. awaiting word from rehabs. 07/01: stable. no issues. continue current mgmt. 07/02: aded ibuprofen PRN dental pain. otherwise continue current mgmt. [facility] 07[facility]. +groups, +meds. no issues. stable. Reason for continued inpatient stay Substantial Risk for: inability to function and rapid decompensation Time Spent With Patient Time: Total time managing care of this patient today ____ minutes.
[2024-07-03 19:24] VITALS: BP 117/72; PULSE 87; RESP 16; TEMP 36.9; O2SAT 98
[2024-07-03 21:38] VITALS: BP 105/69
[2024-07-03] MEDS: Melatonin 3 MG TABLET 6 MG PO (21:39)
[2024-07-04 08:00] VITALS: BP 100/60; PULSE 69; RESP 14; TEMP 36.6; O2SAT 96
[2024-07-04] MEDS: methADONE HCl 20 MG/2 ML ORAL.CONC 170 MG PO (08:22)
[2024-07-04] MEDS: Nicotine 21 MG PATCH.TD24 TRANSDERMA (08:37)
[2024-07-04] MEDS: buPROPion HCl XL 300 MG TAB.ER.24H PO (08:37)
[2024-07-04] MEDS: Gabapentin 300 MG CAPSULE PO ×2 (08:37→20:53)
[2024-07-04] MEDS: Nicotine Polacrilex Lozenge 4 MG LOZENGE BUCCAL ×5 (08:37→18:27)
[2024-07-04] MEDS: Sertraline HCL 50 MG TABLET PO (08:37)
[2024-07-04] MEDS: Topiramate 25 MG TABLET PO ×2 (08:37→20:54)
--- NOTE | 2024-07-04 14:13 | HO.PSYCHPN ---
Subjective Subjective Date of Service: 07/04/24 Reason For Visit: SI Interim History: waiting to hear from rehabs. no questions, complaints, or requests otherwise. per staff, attending groups. PRN clonidine daily. visible. wants CSS. Mental Status Exam Mental Status Exam Narrative: adequately dressed and groomed. cooperative. no PMA/PMR. speech nml rate, decr amount, nml loudness, decr prosody, nml latency. thoughts linear and logical without delusions or paranoia. affect constricted, hypo-intense, non-labile. no SI/SIBI/HI/AVH expressed. Diagnostics Vital Signs (24Hr): Vital Signs - 24 hr 07/03/24 19:24 07/03/24 21:38 07/04/24 08:00 Temperature 98.5 F 97.9 F Pulse Rate 87 69 Respiratory Rate 16 14 Blood Pressure 117/72 105/69 100/60 Pulse Oximetry 98 96 Oxygen Delivery Method Room Air Room Air BMI result Body Mass Index 29.1 Labs 06/26/24 04:51 06/26/24 04:51 Medications Medications Current Medications Acetaminophen (Acetaminophen 325 Mg Tablet) 650 mg PO Q6H PRN PRN Reason: Headache/Pain Mild Scale (1-3) Last Admin: 07/01/24 22:05 Dose: 650 mg Al Hydroxide/Mg Hydroxide (Magnesium Hydrox/Alum Hydrox 30 Ml Oral.Susp) 30 ml PO Q6H PRN PRN Reason: Heartburn/Nausea Last Admin: 07/02/24 20:24 Dose: 30 ml Bupropion HCl (Bupropion Hcl Xl 300 Mg Tab.Er.24h) 300 mg PO DAILY [facility] Last Admin: 07/04/24 08:37 Dose: 300 mg Clonidine HCl (Clonidine Hcl 0.1 Mg Tablet) 0.1 mg PO BID PRN; Protocol PRN Reason: anxiety/opioid withdrawal Last Admin: 07/03/24 21:38 Dose: 0.1 mg Gabapentin (Gabapentin 300 Mg Capsule) 300 mg PO BID [facility] Last Admin: 07/04/24 08:37 Dose: 300 mg Hydroxyzine HCl (Hydroxyzine Hcl 25 Mg Tablet) 25 mg PO QID PRN PRN Reason: anxiety Last Admin: 07/02/24 22:08 Dose: 25 mg Ibuprofen (Ibuprofen 800 Mg Tablet) 800 mg PO Q8H PRN PRN Reason: Pain (scale score 1-10) Last Admin: 07/03/24 21:39 Dose: 800 mg Magnesium Hydroxide (Milk Of Magnesia 30 Ml Oral.Susp) 30 ml PO DAILY PRN PRN Reason: Constipation Melatonin (Melatonin 3 Mg Tablet) 6 mg PO BEDTIME [facility] Last Admin: 07/03/24 21:39 Dose: 6 mg Methadone HCl (Methadone Hcl 20 Mg/2 Ml Oral.Conc) 170 mg PO DAILY [facility] Last Admin: 07/04/24 08:22 Dose: 170 mg Nicotine (Nicotine 21 Mg Patch.Td24) 21 mg TRANSDERMA DAILY [facility] Last Admin: 07/04/24 08:37 Dose: 21 mg Nicotine Polacrilex (Nicotine Polacrilex 2 Mg Gum) 4 mg BUCCAL Q2H PRN PRN Reason: Nicotine Cravings Last Admin: 07/03/24 21:38 Dose: 4 mg Nicotine Polacrilex (Nicotine Polacrilex Lozenge 4 Mg Lozenge) 4 mg BUCCAL Q2H PRN PRN Reason: Nicotine Cravings Last Admin: 07/04/24 13:29 Dose: 4 mg Sertraline HCl (Sertraline Hcl 50 Mg Tablet) 50 mg PO DAILY [facility] Last Admin: 07/04/24 08:37 Dose: 50 mg Topiramate (Topiramate 25 Mg Tablet) 25 mg PO BID [facility] Last Admin: 07/04/24 08:37 Dose: 25 mg Trazodone HCl (Trazodone Hcl 50 Mg Tablet) 50 mg PO BEDTIME MRX1 PRN PRN Reason: Insomnia Allergies Allergies Allergy/AdvReac Type Severity Reaction Status Date / Time No Known Allergies Allergy Verified 06/26/24 03:55 [No Known Allergies*] Assessment & Plan Assessment & Plan (1) Depression: Status: Acute Code(s): F32.A - Depression, unspecified (2) Multiple substance abuse: Status: Acute Code(s): F19.10 - Other psychoactive substance abuse, uncomplicated Plan 06/28: increase methadone to 170 mg daily. start zoloft 50 mg daily today. increase wellbutrin XL from 150 mg to 300 mg as of tomorrow. otherwise continue outpt regimen. refer for rehabs. 06/29: no problems with med changes. continue current mgmt. referral to [facility] underway. 06/30: stable presentation. no safety concerns expressed today. continue current mgmt. awaiting word from rehabs. 07/01: stable. no issues. continue current mgmt. 07/02: aded ibuprofen PRN dental pain. otherwise continue current mgmt. [facility]: [facility]. +groups, +meds. no issues. stable. 07/04: awaiting word from rehabs. stable. continue current mgmt. Reason for continued inpatient stay Substantial Risk for: inability to function and rapid decompensation Time Spent With Patient Time: Total time managing care of this patient today __25__ minutes.
[2024-07-04 14:23] VITALS: BP 120/71
[2024-07-04] MEDS: Nicotine Polacrilex 2 MG GUM 4 MG BUCCAL ×2 (14:23→20:55)
[2024-07-04] MEDS: cloNIDine HCL 0.1 MG TABLET PO ×2 (14:23→20:54)
[2024-07-04] MEDS: hydrOXYzine HCL 25 MG TABLET PO (18:26)
[2024-07-04 20:45] VITALS: BP 112/65; PULSE 60; RESP 16; TEMP 36.9; O2SAT 95
[2024-07-04] MEDS: Melatonin 3 MG TABLET 6 MG PO (20:53)
[2024-07-05 08:00] VITALS: BP 113/70; PULSE 77; RESP 16; TEMP 36.4; O2SAT 97
[2024-07-05] MEDS: methADONE HCl 20 MG/2 ML ORAL.CONC 170 MG PO (08:24)
[2024-07-05] MEDS: Nicotine 21 MG PATCH.TD24 TRANSDERMA (08:59)
[2024-07-05] MEDS: Gabapentin 300 MG CAPSULE PO ×2 (08:59→21:05)
[2024-07-05] MEDS: Topiramate 25 MG TABLET PO ×2 (08:59→21:06)
[2024-07-05] MEDS: Sertraline HCL 50 MG TABLET PO (08:59)
[2024-07-05] MEDS: buPROPion HCl XL 300 MG TAB.ER.24H PO (09:02)
[2024-07-05] MEDS: Nicotine Polacrilex Lozenge 4 MG LOZENGE BUCCAL ×6 (09:48→21:31)
--- NOTE | 2024-07-05 10:54 | P.DS_ITS ---
DS: Providers Provider Date of Service: 07/05/24 Date of admission: 06/27/24 15:31 Primary care physician: CRISTINA Yi Consults: 06/27/24 17:59 Addiction Medicine Routine Consulting Provider: Addiction Covering Reason for consultation: Etoh screen Has provider been notified: Yes DS: Diagnosis Discharge Diagnosis (1) Depression: Status: Acute (2) Multiple substance abuse: Status: Acute DS: Medications Discharge Medications Home Medications: Previous Rx's ?Medication ?Instructions ?Recorded bacitracin 500 unit/gram topical 1 appl topical BID 10 days #14 07/05/24 ointment grams bupropion HCl 300 mg 24 hr tablet, 300 mg PO DAILY 30 days #30 tabs 07/05/24 extended release clonidine HCl 0.1 mg tablet 0.1 mg PO BID PRN anxiety/opioid 07/05/24 withdrawal 30 days #60 tabs gabapentin 300 mg capsule 300 mg PO BID 30 days #60 caps 07/05/24 hydroxyzine HCl 25 mg tablet 25 mg PO TID anxiety 30 days #90 07/05/24 tabs ibuprofen 600 mg tablet 600 mg PO BID PRN Mild Pain (Scale 07/05/24 Score 1-4) 30 days #60 tabs melatonin 5 mg tablet 5 mg PO BEDTIME 30 days #30 tabs 07/05/24 methadone 10 mg/mL oral 170 mg (17 mL) PO DAILY #0 mL 07/05/24 concentrate (Methadose) naloxone 4 mg/actuation nasal 4 mg intranasal Q2M PRN opioid 07/05/24 spray (Narcan) overdose 1 day #2 ea nicotine (polacrilex) 4 mg buccal 4 mg buccal Q2H PRN Nicotine 07/05/24 lozenge Cravings 8 days #108 ea nicotine 21 mg/24 hr daily 1 patch topical DAILY 28 days #28 07/05/24 transdermal patch ea sertraline 50 mg tablet 50 mg PO DAILY 30 days #30 tabs 07/05/24 topiramate 25 mg tablet 25 mg PO BID 30 days #60 tabs 07/05/24 Mental Status Exam Mental Status Exam Narrative: adequately dressed and groomed. cooperative. no PMA/PMR. speech nml rate, decr amount, nml loudness, decr prosody, nml latency. thoughts linear and logical without delusions or paranoia. affect constricted, hypo-intense, non- labile. no SI/SIBI/HI/AVH. Data Data Completed and Pending Completed studies during hospitalization [Text1]: 06/26/24 Unknown Urine clean catch - Clean Catch Midstream Urine Culture - Final DS: Summary Hospital Course Hospital Course: per 06/28 admission note: HPI Narrative: per CARE team tania pt self-presented to [facility] c/o SI without plan. he reported having been at [facility] until 4 days prior when he left with a woman and used IV cocaine and heroin with her in a hotel room until she was arrested while out buying some more drugs. he then left the hotel feeling depressed and hopeless and brought himself to the hospital. he is recently homeless, having been asked to leave his mother's home due to ongoing conflict with his sister. no h/o psych hosp, SA, outpt Tx in the past 8 yrs. substantial h/o substance abuse Tx. in methadone program. on interview with , narrative c/w the above. pt reports h/o zoloft Rx and is currently on wellbutrin and gabapentin. agreeable to restart zoloft and increase wellbutrin. also c/o opioid cravings, agrees to increase methadone to 170 mg daily. asking for re-referral to rehab; was at [facility] for 16 days until 4 days prior to admission. endorses SI for some period today, states it comes and goes. no other complaints or requests. Past Psychiatric History: hosps: none SA: none SIB: h/o cutting x 1 HIB: none outpt: h/o therapy about 8 years ago h/o zoloft Rx. currently on wellbutrin and gabapentin from PCP Medical Evaluation Reviewed: Yes [facility] Medical History (Updated 06/26/24 @ 12:[address] [facility]) Hepatitis C Anxiety Foreign body (FB) in soft tissue Smoker Hx of substance abuse Surgical History No significant past surgical history Family History: father - suicided. depression, opioids. mother - cocaine, alcohol, heroin. attempted suicide. sister - dep/anx. xanax, cannabis. Social History: homeless. no income. GED. last working about a year ago at a [employer]. Substance History: tobacco - 1/2 ppd, also vapes cannabis - none alcohol - several drinks daily for the past 3-4 days. cocaine - IV, day of presentation. utox POS. opioids - IV, anya of presentation. utox opiates, fentanyl POS. methadone POS (on maintenance). stimulants - denies denies use of other substances of abuse. h/o multiple detoxes and rehabs Trauma History: denies Precis: 06/28: increase methadone to 170 mg daily. start zoloft 50 mg daily today. increase wellbutrin XL from 150 mg to 300 mg as of tomorrow. otherwise continue outpt regimen. refer for rehabs. 06/29: no problems with med changes. continue current mgmt. referral to [facility] underway. 06/30: stable presentation. no safety concerns expressed today. continue current mgmt. awaiting word from rehabs. 07/01: stable. no issues. continue current mgmt. 07/02: added ibuprofen PRN dental pain. otherwise continue current mgmt. [facility] 07[facility]: [facility]. +groups, +meds. no issues. stable. 07/04: awaiting word from rehabs. stable. continue current mgmt. 07/05: accepted to [facility]. meds reviewed, reconciled, prescribed. stable, improved. 07/06: stable, safe. discharged to [facility] as per plan. Time Spent with Patient Time attestation: Total time managing care of this patient today _35___ minutes. Discharge Plan Discharge Anticipated Discharge Date/Time: 07/06/24 10:00 Patient Disposition: Xfer Inpatient Rehab Fac Discharge Diagnosis: Depressive Disorder NOS Polysubstance Use Disorder Referrals: Troy Dunham MD [Physician] - 1 Week (Your primary care provider will be calling you to set up your follow up appt.) Discharge Medications: New nicotine (polacrilex) 4 mg Lozenge 4 mg buccal Q2H PRN (Reason: Nicotine Cravings) 8 Days Qty: 108 3RF clonidine HCl 0.1 mg Tablet 0.1 mg PO BID PRN (Reason: anxiety/opioid withdrawal) 30 Days Qty: 60 0RF Protocol: Hold for SBP< HOLD for SBP < : 90 hydroxyzine HCl 25 mg Tablet 25 mg PO TID 30 Days Qty: 90 0RF methadone [Methadose] 10 mg/mL Concentrate 170 mg PO DAILY Qty: 0 0RF Rx Instructions: Partial Fill upon patient request. sertraline 50 mg Tablet 50 mg PO DAILY 30 Days Qty: 30 0RF bupropion HCl 300 mg Tablet Extended Release 24 Hr 300 mg PO DAILY 30 Days Qty: 30 0RF bacitracin 500 unit/gram ointment 1 appl topical BID 10 Days Qty: 14 0RF Rx Instructions: apply to affected areas twice daily naloxone [Narcan] 4 mg/actuation spray,non-aerosol 4 mg intranasal Q2M PRN (Reason: opioid overdose) 1 Days Qty: 2 0RF Rx Instructions: spray 1 dose into ONE nostril; alternate nostrils w each dose until help arrives Continued topiramate 25 mg tablet 25 mg PO BID 30 Days Qty: 60 0RF nicotine 21 mg/24 hr patch 24 hour 1 patch topical DAILY 28 Days Qty: 28 0RF gabapentin 300 mg capsule 300 mg PO BID 30 Days Qty: 60 1RF melatonin 5 mg tablet 5 mg PO BEDTIME 30 Days Qty: 30 0RF Changed ibuprofen 600 mg tablet 600 mg PO BID PRN (Reason: Mild Pain (Scale Score 1-4)) 30 Days Qty: 60 0RF Discontinued nicotine (polacrilex) 4 mg lozenge 4 mg buccal Q4-8H PRN (Reason: nicotine cravings) Qty: 108 0RF hydroxyzine HCl 25 mg tablet 25 mg PO QID bupropion HCl 150 mg tablet sustained-release 12 hr 150 mg PO DAILY methadone 10 mg/mL concentrate 165 mg PO DAILY Rx Instructions: [facility] in [place] (Methadone clinic) Discharge Orders: Discharge Order (Routine); Ordered 07/06/24 Ordered By: Jameson Kapoor Diet: Advance to usual diet Activity on Discharge: As tolerated Stand Alone Forms: Patient Portal Discharge page, Community Support Print Language: Kazakh Care Plan Goals: remain safe, stable, and sober in the outpatient treatment setting Health Concerns: none Plan of Treatment: take medications as prescribed, attend appointments as scheduled Assessment: not at imminent risk of harm to self or others Discharge Date/Time: 07/06/24 10:10
[2024-07-05 11:56] VITALS: BP 120/74; PULSE 100
[2024-07-05] MEDS: cloNIDine HCL 0.1 MG TABLET PO ×2 (11:59→18:59)
[2024-07-05] MEDS: Bacitracin Oint 14 GM TUBE 1 APPL TOPICAL (12:04)
[2024-07-05] MEDS: hydrOXYzine HCL 25 MG TABLET PO (14:38)
[2024-07-05 18:58] VITALS: BP 100/63; PULSE 85
[2024-07-05 21:00] VITALS: BP 105/65; PULSE 83; RESP 16; TEMP 36.6; O2SAT 98
[2024-07-05] MEDS: Melatonin 3 MG TABLET 6 MG PO (21:06)
[2024-07-06 07:55] VITALS: BP 117/64; PULSE 69; RESP 16; TEMP 36.4; O2SAT 99
[2024-07-06] MEDS: methADONE HCl 20 MG/2 ML ORAL.CONC 170 MG PO (08:09)
[2024-07-06] MEDS: Nicotine Polacrilex Lozenge 4 MG LOZENGE BUCCAL (09:41)
[2024-07-06] MEDS: Nicotine 21 MG PATCH.TD24 TRANSDERMA (09:44)
[2024-07-06] MEDS: buPROPion HCl XL 300 MG TAB.ER.24H PO (10:16)
[2024-07-06] MEDS: Sertraline HCL 50 MG TABLET PO (10:16)
[2024-07-06] MEDS: Gabapentin 300 MG CAPSULE PO (10:16)
[2024-07-06] MEDS: Topiramate 25 MG TABLET PO (10:16)
== END 2024-07-06 10:10 | DRG 881 ==
LOC: HO.ED 06-27 07:32 → HO.PADLT16 06-27 15:40
PROVIDERS: Emergency Medicine; Admitting Provider Psychiatry & Neurology Psychiatry; Emergency Provider Emergency Medicine Emergency Medical Services; PCP Nurse Practitioner Adult Health; Visit Provider Psychiatry & Neurology Psychiatry
DX: F32.A Depression, unspecified (principal); R45.851 Suicidal ideations; F11.20 Opioid dependence, uncomplicated; Z59.02 Unsheltered homelessness; F19.10 Other psychoactive substance abuse, uncomplicated; Z87.891 Personal history of nicotine dependence; Z79.899 Other long term (current) drug therapy
CPT/HCPCS: 36415; 80053; 80143; 80179; 80307; 81001; 85025; 87086; 93005; 99285; S9485

== ENCOUNTER → 2024-06-27 15:31 | Outpatient (BNV) | payer OTHER, SELFPAY | PROVIDERS: Admitting Provider Psychiatry & Neurology Psychiatry; Emergency Provider Emergency Medicine Emergency Medical Services; PCP Nurse Practitioner Adult Health; Visit Provider Psychiatry & Neurology Psychiatry | DX: F32.2 Major depressive disorder, single episode, severe without psychotic features (principal); F19.10 Other psychoactive substance abuse, uncomplicated | CPT/HCPCS: 90792; 99231; 99232; 99239 ==

== ENCOUNTER 2024-07-11 10:57 | Outpatient (AMB) | payer MEDICAID, SELFPAY ==
[2024-07-11 11:05] VITALS: BP 128/80; PULSE 94; O2SAT 96; BMI 30.6
--- NOTE | 2024-07-11 11:05 | MHC.PC.OV ---
Vital Signs 07/11/24 11:05 Height 5 ft 8 in Weight 201 lb BMI 30.6 BP 128/80 Blood Pressure Location Lt brachial Position Sitting Pulse 94 Pulse Source Pulse Oximeter Pulse Oximetry (%) 96 Oxygen Delivery Method Room Air Intake Visit Reasons: [facility] 07/06 suicidal Ideation [employer] Required: No Accompanied by: Self / Same As Patient Allergies No Known Allergies [No Known Allergies*] Allergy (Verified 07/11/24 11:05) Medication List - Last Reconciled 07/11/24 by Britney Brown PA-C bacitracin 1 appl topical BID 10 days bupropion HCl XL 300 mg PO DAILY 30 days clonidine HCl 0.1 mg See Protocol PO BID PRN 30 days gabapentin 300 mg PO BID 30 days hydroxyzine HCl 25 mg PO TID 30 days ibuprofen 600 mg PO BID PRN 30 days melatonin 5 mg PO BEDTIME 30 days methadone (Methadose) 170 mg (17 mL) PO DAILY naloxone 4 mg/actuation (Narcan) 4 mg intranasal Q2M PRN 1 day nicotine 1 patch topical DAILY 28 days nicotine (polacrilex) 4 mg buccal Q2H PRN 8 days sertraline 50 mg PO DAILY 30 days topiramate 25 mg PO BID 30 days Tobacco use date assessed: 07/11/24 Dental Screening Dental Screen Date: 07/11/24 Did you have a dental visit in the last 12 months?: No Did you have a dental problem in the last 6 months where you did not have access to dental care?: No Was dental information given to patient?: Yes HPI [facility] 07/06 suicidal Ideation HPI Details 28-year-old male with past medical history polysubstance abuse, depression, anxiety last seen by Dr. Dunham 03/2023 coming in for hospital follow up. In review of the notes, patient was seen at [facility] ED 06/26/2024 with SI without a plan. Patient was admitted for further monitoring and referred to rehab. Patient was working for outpatient placement of rehab for readmission. Patient was previously at [facility]. Since being discharged patient has reestablished at home program and has been doing well. He is on methadone daily and denies any cravings at this time. He identifies good social supports at the [facility] and is currently working with them to establish housing. He denies any thoughts of self-harm and his depression and anxiety have been stable on current med regimen. Previously he was established with a counselor but has not seen 1 in many years. He has no other concerns today. [facility] Medical History (Updated 06/26/24 @ 12:13 by Margaret Garcia [facility]) Hepatitis C Anxiety Foreign body (FB) in soft tissue Smoker Hx of substance abuse Surgical History No significant past surgical history Family History Father No problems noted. Mother No problems noted. Social History Housing: Homeless Do you presently have visiting nurse or other home services: No Alcohol intake: current Alcohol intake frequency: 3 or more drinks per day Alcohol type: beer and hard liquor Patient Tobacco Use Status: Former Tobacco user Tobacco use type: Cigarette Cigarette Packs Per Day: 0.5 Cigarettes Per Day: 10.0 Years Smoked: 10 years e-Cigarette/Vaping Use: Former Use Second Hand Smoke Exposure: No Substance Use Type: Crack/Cocaine and Heroin service: No Current occupational status: unemployed Sexual orientation: Straight/Heterosexual Cognitive needs: No Hearing needs: No Vision needs: No Questionnaire PHQ-9 Over the last 2 weeks, how often have you been bothered by any of the following problems? 1. Little interest or pleasure in doing things: not at all 2. Feeling down, depressed, or hopeless: not at all 3. Trouble falling or staying asleep, or sleeping too much: not at all 4. Feeling tired or having little energy: not at all 5. Poor appetite or overeating: not at all 6. Feeling bad about yourself - or that you are a failure or have let yourself or your family down: not at all 7. Trouble concentrating on things, such as reading the newspaper or watching television: not at all 8. Moving or speaking so slowly that other people could have noticed. Or the opposite - being so fidgety or restless that you have been moving around a lot more than usual: not at all 9. Thoughts that you would be better off or of hurting yourself in some way: not at all Total score: 0 Depression Screening Interpretation: Negative Depression Screening Done: Yes Source: Developed by Drs. Mike Jefferson, Daiana Barrios, Zuhair Khan and colleagues, with an educational joaquim from [employer]. Thrive Questionnaire Date Thrive assessed: 06/28/24 AUDIT C Alcohol Use Questionnaire (AUDIT-C) 1. How often do you have a drink containing alcohol?: 2-4 times a month 2. How many drinks containing alcohol do you have on a typical day when you are drinking?: 1 or 2 3. How often do you have six or more drinks on one occasion?: Never Total Score: 2 Score Reviewed/Action Taken: Yes OSEAS-7 AMB Questionnaire OSEAS-7 Date OSEAS - 7 assessed: 07/11/24 Feeling nervous, anxious, or on edge: 3 = Nearly every day Not being able to stop or control worryin = Nearly every day Worrying too much about different things: 3 = Nearly every day Trouble relaxin = Nearly every day Being so restless that it is hard to sit still: 3 = Nearly every day Becoming easily annoyed or irritable: 3 = Nearly every day Feeling afraid as if something awful might happen: 3 = Nearly every day Total OSEAS-7 score (0-4 normal; 5-9 mild; 10-14 moderate; 15-21 severe): 21 Source: Developed by Drs. Mike Jefferson, Daiana Barrios, Zuhair Khan and colleagues, with an educational joaquim from [employer]. Review of Systems Const Denies body aches, Denies chills, Denies fatigue and Denies fever(s) Eyes Reports no additional complaints ENT Reports no additional complaints and Denies dizziness Card Denies chest pain, Denies syncope, Denies irregular heart rhythm, Denies leg edema, Denies lightheadedness and Denies dyspnea Resp Denies dyspnea GI Reports no additional complaints Reports no additional complaints Musc Reports no additional complaints Skin/Breast Reports system reviewed and no additional complaints, except as documented Neuro Denies dizziness and Denies syncope Endo Denies fatigue Physical exam (Primary Care) Vital Signs: Last Vital Signs Pulse 94 07/11/24 11:05 BP 128/80 07/11/24 11:05 Pulse Ox 96 07/11/24 11:05 Oxygen Delivery Method Room Air 07/11/24 11:05 BMI result Body Mass Index 30.6 Tobacco/Smoking Status: Tobacco use Status Tobacco use date assessed 07/11/24 07/11/24 11:07 Patient Tobacco Use Status Former Tobacco user 07/11/24 11:10 Tobacco use type Cigarette 07/11/24 11:07 e-Cigarette/Vaping Use Former Use 07/11/24 11:10 PHQ-9: PHQ-9 Score PHQ-9: Total score 0 07/11/24 11:15 Depression Screening Interpretation: Negative Thrive Assessment: Date of Thrive Assessment Date Thrive assessed 06/28/24 07/11/24 11:07 Const General: cooperative, healthy appearing, comfortable and no acute distress Orientation/consciousness: patient oriented x3 HENMT Head: Yes normocephalic Ears: hearing grossly normal bilaterally General nose exam: Normal external nose present Eyes General: appearance normal, both eyes and all related structures Conjunctivae: conjunctivae normal Neck Neck: Yes full ROM and Yes no lymphadenopathy Resp Effort & Inspection: normal respiratory effort Auscultation: clear to auscultation bilaterally, no crackles, no rales, no rhonchi and no wheezes Cardio Rate: regular rate Rhythm: regular rhythm Skin General skin exam: no rashes or lesions noted Neuro General: patient oriented x3 Gait exam (Neuro): Normal gait present Extrem General: Yes normal to inspection, Yes full ROM and No edema Psych Affect: normal affect Attitude: cooperative Insight: Good insight present (Psych) Judgement: Good judgement present (Psych) Assessment and Plan Assessment & Plan (1) Multiple substance abuse: Code(s): F19.10 - Other psychoactive substance abuse, uncomplicated Plan: Patient at the [facility] and has been using methadone daily. Denies any cravings at this time and identifies good supports at [facility]. (2) Depression: Code(s): F32.A - Depression, unspecified Plan: Stable on sertraline, clonidine, bupropion, and hydroxyzine. Patient feels at this time he may benefit from counseling and referral was placed today. Denies any side effects from medications. (3) Anxiety: Code(s): F41.9 - Anxiety disorder, unspecified Plan: Stable on sertraline, clonidine, bupropion, and hydroxyzine. Will follow up with counseling and agrees to reach out if symptoms worsen. Denies any problems falling asleep or staying asleep. Plan We will follow up in 2 months for annual physical exam and patient will complete blood work prior to exam. He agrees to reach out if he has any feelings of self-harm or feel she needs re-evaluation. This note was constructed using voice recognition software. While every effort has been made to ensure accuracy and balance wheel screw hole driller, still areas may have been included sometimes these areas may affect the content or meeting of the given symptoms. Total time spent caring for the patient today was 30 minutes. This includes time spent before the visit reviewing the chart, time spent during the visit, and time spent after the visit and documentation. Orders: Referrals Counseling Referral F32.A - Depression, unspecified, F41.9 - Anxiety disorder, unspecified Coding Level of Care Code Est Pt Level 4 (70957) Diagnoses Multiple substance abuse F19.10 Depression F32.A Anxiety F41.9 Additional Codes PHQ-9 - 00357 - PHQ-9 Billing: ([id number])
== END 2024-07-11 11:35 | disposition home or self-care (01) ==
PROVIDERS: PCP Nurse Practitioner Adult Health
DX: F19.10 Other psychoactive substance abuse, uncomplicated (principal); F32.A Depression, unspecified; F41.9 Anxiety disorder, unspecified
CPT/HCPCS: 99214

== ENCOUNTER 2025-01-10 02:43 | Emergency (ER) | payer MEDICAID, SELFPAY ==
[2025-01-10] VITALS (8 sets, daily range): BP systolic 109–141; BP diastolic 66–95; PULSE 74–107; RESP 16–20; TEMP 36.2–37.3; O2SAT 94–99; BMI 34.0
--- NOTE | 2025-01-10 | ECG_ITS ---
Test Reason : DRUG USE Blood Pressure : */* mmHG Vent. Rate : 104 BPM Atrial Rate : 104 BPM P-R Int : 132 ms QRS Dur : 96 ms QT Int : 380 ms P-R-T Axes : 57 24 10 degrees QTcB Int : 499 ms Sinus tachycardia Otherwise normal ECG When compared with ECG of 27-Jun-2024 15:20, No significant change was found Referred By: Generic ED Physician Electronically Signed By: DEEPA CORTEZ
[2025-01-10 03:32] LABS: Basophils Percent Auto 0.4 % (0-2); Eosinophils Absolute Auto 0.2 X10*3/uL (0.0-0.4); Eosinophils Percent Auto 1.4 % (0-4); Hematocrit 32.2 % (42.0-52.0); Hemoglobin 11.3 g/dl (14.0-18.0); Imm Gran Abs Auto 0.03 X10*3/uL (0.00-0.03); Imm Gran Pct Auto 0.3 % (0.0-0.4); Lymphocytes Absolute Auto 4.2 X10*3/uL (1.2-4.9); Lymphocytes Percent Auto 40.2 % (20-40); MANUAL DIFF FLAG NO; Mean Corpuscular HGB Conc 35.1 g/dl (31.0-36.0); Mean Corpuscular Hemoglobin 28.6 pg (27.0-33.0); Mean Corpuscular Volume 81.5 fL (80.0-98.0); Mean Platelet Volume 8.8 fL (9.4-12.4); Monocytes Absolute Auto 0.8 X10*3/uL (0.1-1.2); Monocytes Percent Auto 7.5 % (2-11); Neutrophils Absolute Auto 5.3 x10*3/uL (2.0-8.3); Neutrophils Percent Auto 50.2 % (45-73); Platelet Count 323 X10*3/uL (160-400); Red Blood Count 3.95 X10*6/uL (4.60-5.80); Red Cell Distribution Width 12.5 % (11.0-16.0); White Blood Count 10.5 X10*3/uL (4.8-10.8)
[2025-01-10 03:46] LABS: Alanine Aminotransferase 48 U/L (0-40); Albumin Level 4.1 g/dL (3.5-5.0); Alkaline Phosphatase 96 U/L (39-117); Anion Gap 14 (12-20); Aspartate Amino Transferase 49 U/L (5-37); Bilirubin Total 0.9 mg/dL (0.0-1.0); Blood Urea Nitrogen 11 mg/dL (9-16); Calcium 8.7 mg/dL (8.4-10.2); Carbon Dioxide 24 mmol/L (22-29); Chloride 102 mmol/L (96-108); Creatinine Clr Calc Pharmacy 166.1; Estimated Glomerular Filt Rate > 60; Ethanol 11 mg/dL; Glucose Random 83 mg/dL (60-115); Potassium 3.4 mmol/L (3.3-5.1); Sodium 137 mmol/L (135-145); Total Protein 7.5 g/dL (6.5-8.0)
[2025-01-10 03:59] LABS: Acetaminophen LAB < 3 mcg/mL (<30); Salicylate < 5.0 mg/dL (15-30)
--- NOTE | 2025-01-10 04:20 | ED_ITS ---
HPI - General Adult General Chief complaint: Psychiatric Symptoms Stated complaint: si drug use Time Seen by Provider: 01/10/25 04:19 History of Present Illness ED Provider: Joyce ASKEW narrative: The patient is a 29-year-old male who says that he has been in correction for 60 days recently. He was released 4 days ago. He says that before being in correction he has been living [facility] a [facility] type of program. He said that he left the program because he objected to having a strip search. However being in a program like that was part of his probation agreement and so when he left the program he was taken to correction for violation of his probation. He says that he had had a warrant for possession of drugs. Since leaving the program he has been using IV heroin and cocaine he says. He also has been getting his usual methadone dose at the [facility] clinic in [facility]. The patient says that he had fallen asleep outside near a liquor store and that a bystander had called 911. The patient says it he is feeling depressed and suicidal because he has no positive plans for the future. He is hoping he can get into a program again. He denies fever, sweats, chills. Related Data Previous Rx's ?Medication ?Instructions ?Recorded bacitracin 500 unit/gram topical 1 appl topical BID 10 days #14 07/05/24 ointment grams ibuprofen 600 mg tablet 600 mg PO BID PRN Mild Pain (Scale 07/05/24 Score 1-4) 30 days #60 tabs melatonin 5 mg tablet 5 mg PO BEDTIME 30 days #30 tabs 07/05/24 methadone 10 mg/mL oral 170 mg (17 mL) PO DAILY #0 mL 07/05/24 concentrate (Methadose) naloxone 4 mg/actuation nasal 4 mg intranasal Q2M PRN opioid 07/05/24 spray (Narcan) overdose 1 day #2 ea nicotine (polacrilex) 4 mg buccal 4 mg buccal Q2H PRN Nicotine 07/05/24 lozenge Cravings 8 days #108 ea nicotine 21 mg/24 hr daily 1 patch topical DAILY 28 days #28 07/05/24 transdermal patch ea topiramate 25 mg tablet 25 mg PO BID 30 days #60 tabs 07/05/24 sertraline 50 mg tablet 50 mg PO DAILY 30 days #30 tabs 10/06/24 gabapentin 400 mg capsule 400 mg PO BID 30 days #60 caps 10/28/24 hydroxyzine HCl 25 mg tablet 25 mg PO TID anxiety 30 days #90 10/28/24 tabs bupropion HCl 300 mg 24 hr tablet, 300 mg PO DAILY 30 days #30 tabs 11/30/24 extended release clonidine HCl 0.1 mg tablet 0.1 mg PO BID PRN anxiety/opioid 11/30/24 withdrawal 30 days #60 tabs Allergies Allergy/AdvReac Type Severity Reaction Status Date / Time No Known Allergies Allergy Verified 01/10/25 03:01 [No Known Allergies*] Review of Systems 2 Review of Systems: Yes all other systems are reviewed and are negative PMFSH Past Medical History Medical History (Updated 01/10/25 @ 04:39 by Baltazar Cook MD) Hepatitis C Anxiety Foreign body (FB) in soft tissue Smoker Hx of substance abuse Surgical History No significant past surgical history Family History Family History Father No problems noted. Mother No problems noted. Social History Social History Housing: Homeless Do you presently have visiting nurse or other home services: No Alcohol intake: current Alcohol intake frequency: 3 or more drinks per day Alcohol type: hard liquor and other Patient Tobacco Use Status: Former Tobacco user Tobacco use type: Cigarette Cigarette Packs Per Day: 0.5 Cigarettes Per Day: 10.0 Years Smoked: 10 years e-Cigarette/Vaping Use: Former Use Second Hand Smoke Exposure: No Use of substances other than those prescribed or required for medical reasons: Yes Substance Use Type: Crack/Cocaine, Heroin and IV Drugs Substance Use Frequency: Daily Last Used Substance: Hours (ago) Any prior treatment program specific to substance use: Yes Advance Directives: No Advance Directives Information Provided: Yes service: No Current occupational status: unemployed Sexual orientation: Straight/Heterosexual Cognitive needs: No Hearing needs: No Vision needs: No Physical Exam ED Vital Signs: Vital Signs - 24 hr 01/10/25 02:58 01/10/25 03:05 01/10/25 04:15 Temperature 98.4 F 98.4 F 99.1 F Pulse Rate 107 H 107 H 79 Respiratory Rate 18 18 16 Blood Pressure 136/85 136/85 131/79 Pulse Oximetry 98 98 95 Oxygen Delivery Method Room Air Room Air Room Air 01/10/25 05:48 Temperature 99.0 F Pulse Rate 104 H Respiratory Rate 16 Blood Pressure 141/78 H Pulse Oximetry 94 Oxygen Delivery Method Room Air BMI result Body Mass Index 34.0 Const Other: The patient is awake and alert, in no obvious distress. HENMT Other: Face is symmetrical. Mucous membranes moist. Eyes General: appearance normal, both eyes and all related structures Neck Neck: Yes full ROM Resp Effort & Inspection: normal respiratory effort Auscultation: clear to auscultation bilaterally Cardio Rate: regular rate Rhythm: regular rhythm Heart sounds: S1 normal heart sound present, S2 normal heart sound present and Murmur heart sound present (No murmur heard) GI Other: Abdomen is soft and nontender Skin Other: The patient has some bruises on his right antecubital fossa and right biceps area where he says he has been shooting up recently. The patient has some erythema to the skin above both ankles that he attributes to tight pants and cold Neuro Other: The patient is awake and alert with a full level of consciousness. Mental status is clear. Cranial nerves 2 through 12 are intact. He moves his extremities symmetrically and appropriately. He seems fully neurologically intact. Extrem Other: The patient has some erythema to the skin of both lower legs above the ankles where he says his pants legs has been quite tight. No calf swelling or tenderness. No asymmetry. Medications Administered Discontinued Medications Generic Name Dose Route Start Last Admin Trade Name Taurus PRN Reason Stop Dose Admin Hydroxyzine HCl 50 mg 01/10/25 04:29 01/10/25 04:45 Hydroxyzine Hcl 50 Mg Tablet PO 01/10/25 04:30 50 mg ONCE ONE Administration Medical Decision Making Medical Decision Making [facility] Narrative: The patient is a 29-year-old male who was homeless and who was an IV drug user. He was released from correction 4 days ago after 60 days in jail. Since leaving jail he has continued to take his oral methadone at the [facility] clinic in [facility]. He says he had his regular dose this morning. The patient seems medically stable. He is expressing some vague suicidal ideation. He is also hoping to get it back into some kind of a [place] [facility] type of program. I think the patient is medically clear. I will consult the care team for additional consideration of his behavioral complaints. The patient will be placed in physician observation pending evaluation by the care team. Lab Data 01/10/25 03:27 01/10/25 03:28 Labs: Lab Results 01/10/25 01/10/25 Range/Units 03:27 03:28 WBC 10.5 (4.8-10.8) X10*3/uL RBC 3.95 L (4.60-5.80) X10*6/uL Hgb 11.3 L (14.0-18.0) g/dl Hct 32.2 L (42.0-52.0) % MCV 81.5 (80.0-98.0) fL MCH 28.6 (27.0-33.0) pg MCHC 35.1 (31.0-36.0) g/dl RDW 12.5 (11.0-16.0) % Plt Count 323 (160-400) X10*3/uL MPV 8.8 L (9.4-12.4) fL Immature Gran % (Auto) 0.3 (0.0-0.4) % Neut % (Auto) 50.2 (45-73) % Lymph % (Auto) 40.2 H (20-40) % [place] % (Auto) 7.5 (2-11) % Eos % (Auto) 1.4 (0-4) % Baso % (Auto) 0.4 (0-2) % Lymph # (Auto) 4.2 (1.2-4.9) X10*3/uL [place] # (Auto) 0.8 (0.1-1.2) X10*3/uL Eos # (Auto) 0.2 (0.0-0.4) X10*3/uL Baso # (Auto) 0.0 (0.0-0.2) X10*3/uL Abs Immat Gran (auto) 0.03 (0.00-0.03) X10*3/uL Absolute Neuts (auto) 5.3 (2.0-8.3) x10*3/uL Absolute Nucleated RBC 0.000 (0.0-0.012) X10*3/uL Nucleated RBC % (auto) 0.0 (0.0-0.2) /100WBC Sodium 137 (135-145) mmol/L Potassium 3.4 (3.3-5.1) mmol/L Chloride 102 (96-108) mmol/L Carbon Dioxide 24 (22-29) mmol/L Anion Gap 14 (12-20) BUN 11 (9-16) mg/dL Creatinine 0.74 (0.5-1.4) mg/dL Estim Creat Clear Calc 166.1 Estimated GFR > 60 Random Glucose 83 (60-115) mg/dL Calcium 8.7 D (8.4-10.2) mg/dL Total Bilirubin 0.9 (0.0-1.0) mg/dL AST 49 H (5-37) U/L ALT 48 H (0-40) U/L Alkaline Phosphatase 96 (39-117) U/L Total Protein 7.5 (6.5-8.0) g/dL Albumin 4.1 (3.5-5.0) g/dL Salicylates < 5.0 L (15-30) mg/dL Acetaminophen < 3 (<30) mcg/mL Ethyl Alcohol 11 mg/dL Discharge Plan Discharge Clinical Impression: Active intravenous drug use, Depression, Opioid use disorder Patient Disposition: Still a Patient Prescriptions: No Action sertraline 50 mg tablet 50 mg PO DAILY 30 Days Qty: 30 0RF hydroxyzine HCl 25 mg tablet 25 mg PO TID 30 Days Qty: 90 0RF gabapentin 400 mg capsule 400 mg PO BID 30 Days Qty: 60 1RF clonidine HCl 0.1 mg tablet 0.1 mg PO BID PRN (Reason: anxiety/opioid withdrawal) 30 Days Qty: 60 0RF Protocol: Hold for SBP< HOLD for SBP < : 90 bupropion HCl 300 mg tablet extended release 24 hr 300 mg PO DAILY 30 Days Qty: 30 0RF nicotine (polacrilex) 4 mg Lozenge 4 mg buccal Q2H PRN (Reason: Nicotine Cravings) 8 Days Qty: 108 3RF methadone [Methadose] 10 mg/mL Concentrate 170 mg PO DAILY Qty: 0 0RF Rx Instructions: Partial Fill upon patient request. topiramate 25 mg tablet 25 mg PO BID 30 Days Qty: 60 0RF nicotine 21 mg/24 hr patch 24 hour 1 patch topical DAILY 28 Days Qty: 28 0RF ibuprofen 600 mg tablet 600 mg PO BID PRN (Reason: Mild Pain (Scale Score 1-4)) 30 Days Qty: 60 0RF melatonin 5 mg tablet 5 mg PO BEDTIME 30 Days Qty: 30 0RF bacitracin 500 unit/gram ointment 1 appl topical BID 10 Days Qty: 14 0RF Rx Instructions: apply to affected areas twice daily naloxone [Narcan] 4 mg/actuation spray,non-aerosol 4 mg intranasal Q2M PRN (Reason: opioid overdose) 1 Days Qty: 2 0RF Rx Instructions: spray 1 dose into ONE nostril; alternate nostrils w each dose until help arrives Interventions: [place]-Suicide Risk Severity Scale Last Done: 01/10/25 03:05 Print Language: German
[2025-01-10] MEDS: hydrOXYzine HCL 50 MG TABLET PO (04:45)
--- NOTE | 2025-01-10 07:17 | PC.NURSE ---
methadone dose verified with [facility] nurse, last dose 01/09 0855 180mg, Lolis HERRERA
--- NOTE | 2025-01-10 07:26 | HE.PHANOTE ---
Re Methadone Pt receives 180mg from [facility], last dose at 01/09/2025 @0855.
[2025-01-10] MEDS: methADONE HCl 20 MG/2 ML ORAL.CONC 180 MG PO (08:21)
[2025-01-10 08:56] LABS: Amphetamine Screen Urine Not Detected (Not Detect); Barbiturates, Urine Not Detected (Not Detect); Benzodiazepines Screen Urine Not Detected (Not Detect); Buprenorphine Scr Not Detected (Not Detect); Cannabinoid Screen Urine Not Detected (Not Detect); Cocaine Screen Urine POSITIVE (Not Detect); Fentanyl, urine POSITIVE (Not Detect); Methadone Screen, Urine Positive (Not Detect); Opiate Screen Urine POSITIVE (Not Detect); Oxycodone Screen Urine Not Detected (Not Detect); Phencyclidine Screen Urine Not Detected (Not Detect)
--- NOTE | 2025-01-10 11:26 | PC.NURSE ---
patient has remained calm and cooperative, through out the morning. assumed care of patient at 0700, patient medicated per JAN. patient notified this RN of bilat lower leg/ankle redness/swelling/pain. patient states he thinks is from the elastic on his sweatpants being too tight
[2025-01-10] MEDS: cephALEXin 500 MG CAPSULE PO ×2 (11:59→23:37)
[2025-01-10] MEDS: Nicotine Polacrilex 2 MG GUM BUCCAL ×3 (12:08→23:37)
--- NOTE | 2025-01-10 12:45 | MHC.CARE ---
Patient evaluated by the CARE Team, disposition inpatient dual diagnosis treatment. ED provider Dr Diaz, updated
[2025-01-10 15:57] LABS: Appearance Urine Clear; Color Urine Yellow; Glucose Urine UA Negative (Negative); Leukocyte Esterase Urine Negative (Negative); Nitrite Urine Negative (Negative); Specific Gravity - Urine 1.015 (1.005-1.025); Urine Blood Negative (Negative); Urine Ketones Trace mg/dL (Negative); Urine Protein Negative (Neg-Trace)
--- NOTE | 2025-01-10 17:43 | MHC.CARE ---
Pt is accepted to [facility], [address] [place] [address] for 01/11/25. Accepting is Dr. Gatica, ETA 10am
[2025-01-11] MEDS: hydrOXYzine HCL 25 MG TABLET PO (01:53)
[2025-01-11] MEDS: cephALEXin 500 MG CAPSULE PO (05:39)
--- NOTE | 2025-01-11 07:16 | PC.NURSE ---
Assumed care of patient at 0645, patient appears to be in no apparent distress, sleeping, respirations even and unlabored. Continue plan of care for tranfer to [facility]
[2025-01-11] MEDS: methADONE HCl 20 MG/2 ML ORAL.CONC 180 MG PO (08:43)
[2025-01-11 08:48] VITALS: BP 139/84; PULSE 84; RESP 16; TEMP 36.6; O2SAT 99
[2025-01-11] MEDS: Nicotine Polacrilex 2 MG GUM BUCCAL (08:57)
== END 2025-01-11 09:00 ==
PROVIDERS: Emergency Provider Emergency Medicine; PCP Internal Medicine
DX: F33.1 Major depressive disorder, recurrent, moderate (principal); R00.0 Tachycardia, unspecified; F11.129 Opioid abuse with intoxication, unspecified; Z71.51 Drug abuse counseling and surveillance of drug abuser; Z51.81 Encounter for therapeutic drug level monitoring; Z79.899 Other long term (current) drug therapy
CPT/HCPCS: 36415; 80053; 80143; 80179; 80307; 81003; 85025; 93005; 99285; S9485

== ENCOUNTER → 2025-01-10 03:09 | Outpatient (BNV) | payer MEDICAID, SELFPAY | PROVIDERS: Emergency Provider Emergency Medicine; PCP Internal Medicine; Visit Provider Internal Medicine | DX: R00.0 Tachycardia, unspecified (principal) | CPT/HCPCS: 93010 ==

== ENCOUNTER 2025-07-13 23:56 | Inpatient (IN) | payer MEDICAID, OTHER, SELFPAY ==
[2025-07-14 00:01] VITALS: BP 137/90; PULSE 101; RESP 20; TEMP 36.6; O2SAT 95; BMI 31.9
[2025-07-14 00:48] LABS: Appearance Urine Clear; Glucose Urine UA Negative (Negative); PH 5.5 (5.0-9.0); Specific Gravity - Urine 1.025 (1.005-1.025)
[2025-07-14 00:58] LABS: Cannabinoid Screen Urine Not Detected (Not Detect)
[2025-07-14 01:06] LABS: Alanine Aminotransferase 32 U/L (0-40); Albumin Level 4.8 g/dL (3.5-5.0); Alkaline Phosphatase 115 U/L (39-117); Anion Gap 20 (12-20); Aspartate Amino Transferase 82 U/L (5-37); Blood Urea Nitrogen 13 mg/dL (9-16); Calcium 9.6 mg/dL (8.4-10.2); Carbon Dioxide 15 mmol/L (22-29); Chloride 104 mmol/L (96-108); Creatinine Clr Calc Pharmacy 128.2; Estimated Glomerular Filt Rate > 60; Potassium 4.8 mmol/L (3.3-5.1); Sodium 134 mmol/L (135-145); Total Protein 8.8 g/dL (6.5-8.0)
[2025-07-14 01:08] LABS: Hematocrit 37.9 % (42.0-52.0); Hemoglobin 13.0 g/dl (14.0-18.0); Imm Gran Abs Auto 0.03 X10*3/uL (0.00-0.03); Imm Gran Pct Auto 0.3 % (0.0-0.4); Lymphocytes Absolute Auto 5.2 X10*3/uL (1.2-4.9); MANUAL DIFF FLAG SCAN; Mean Corpuscular HGB Conc 34.3 g/dl (31.0-36.0); Mean Corpuscular Hemoglobin 27.4 pg (27.0-33.0); Mean Corpuscular Volume 79.8 fL (80.0-98.0); NRBC Abs Auto 0.000 X10*3/uL (0.0-0.012); NRBC Pct Auto 0.0 /100WBC (0.0-0.2); Platelet Count 451 X10*3/uL (160-400); Red Blood Count 4.75 X10*6/uL (4.60-5.80); SCAN SMEAR FLAG 1; White Blood Count 11.2 X10*3/uL (4.8-10.8)
[2025-07-14 01:25] LABS: Acetaminophen LAB < 3 mcg/mL (<30); Salicylate < 5.0 mg/dL (15-30)
--- NOTE | 2025-07-14 02:34 | ED.GENADULT ---
HPI - General Adult General Chief complaint: Psychiatric Symptoms Stated complaint: SI Time Seen by Provider: 07/14/25 02:34 History of Present Illness ED Provider: Joyce ASKEW narrative: The patient is a 29-year-old male with a history of depression and substance use disorder. He says that he was recently at a dual diagnosis inpatient facility in [place]. He has been there for about 4 weeks. He was discharged a few days ago. At discharge she went to his mother's house. Since discharge however he has relapsed and has been using IV drugs. Today he was feeling depressed and suicidal and walked to the emergency room from his mother's house. He says that when he uses IV drugs he uses clean needles. He denies fever, sweats, chills. He says that he had thoughts of harming himself by overdose but has not actually done anything to hurt himself. No fever, sweats, chills. No headache. No chest pain or shortness of breath. No abdominal pain, nausea, vomiting. He says that at discharge from his recent inpatient hospitalization he was discharged on sertraline, Wellbutrin, gabapentin, clonidine, and hydroxyzine. Related Data Home Medications ?Medication ?Instructions ?Recorded ?Confirmed methadone 10 mg/mL oral 190 mg PO DAILY 01/10/25 07/14/25 concentrate (Methadose) acamprosate 333 mg tablet,delayed 666 mg PO TID 07/14/25 07/14/25 release bupropion HCl 300 mg 24 hr tablet, 300 mg PO QAM 07/14/25 07/14/25 extended release clonidine HCl 0.2 mg tablet 0.2 mg PO BID 07/14/25 07/14/25 gabapentin 400 mg capsule 400 mg PO TID 07/14/25 07/14/25 hydroxyzine pamoate 50 mg capsule 50 - 100 mg PO TID PRN anxiety 07/14/25 07/14/25 nicotine (polacrilex) 4 mg buccal 4 mg PO Q2H PRN Nicotine Cravings 07/14/25 07/14/25 lozenge quetiapine 50 mg tablet 50 mg PO BEDTIME 07/14/25 07/14/25 sertraline 100 mg tablet 150 mg PO DAILY 07/14/25 07/14/25 Allergies Allergy/AdvReac Type Severity Reaction Status Date / Time No Known Allergies (No Known Allergy Verified 07/14/25 00:04 Allergies*) Review of Systems Review of Systems: Yes all other systems are reviewed and are negative [facility] Past Medical History Medical History (Updated 07/14/25 @ 17:52 by Alejandro Perez MD) Alcohol abuse Cocaine use disorder MDD (major depressive disorder), recurrent severe, without psychosis Hepatitis C Anxiety Foreign body (FB) in soft tissue Smoker Hx of substance abuse Surgical History No significant past surgical history Family History Family History Father No problems noted. Mother No problems noted. Social History Social History Household Members: None Housing: Homeless Do you presently have visiting nurse or other home services: No Alcohol intake: current Alcohol intake frequency: a few times a week Alcohol type: hard liquor and other Patient Tobacco Use Status: Current everyday Tobacco user Tobacco use type: Cigarette Cigarette Packs Per Day: 0.5 Cigarettes Per Day: 10.0 Years Smoked: 10 years Smoked in Last 30 Days: Yes e-Cigarette/Vaping Use: Former Use Patient Interested in Nicotine Replacement: Yes Second Hand Smoke Exposure: No Use of substances other than those prescribed or required for medical reasons: Yes Substance Use Type: Other Substance Use Type Other:: fentanyl Advance Directives: No Advance Directives Information Provided: Yes Do you have a plan to hurt others: No Plan Recently lost weight without trying: No Nutrition Risks: No Nutritional Risk service: No Current occupational status: unemployed Sexual orientation: Straight/Heterosexual Cognitive needs: No Hearing needs: No Vision needs: No Physical Exam ED Vital Signs: Vital Signs - 24 hr 07/14/25 00:01 07/14/25 06:21 07/14/25 07:23 Temperature 97.8 F 97.8 F Pulse Rate 101 H 87 Respiratory Rate 20 16 18 Blood Pressure 137/90 H 135/75 Pulse Oximetry 95 96 Oxygen Delivery Method Room Air Room Air BMI result Body Mass Index 31.9 Const Other: The patient was awake and alert. He had a somewhat flattened affect. He did not seem in any distress. Orientation/consciousness: patient oriented x3 HENMT Other: Face is symmetrical. Mucous membranes moist. Eyes Other: Pupils are round equal, conjunctivae are clear, extraocular movements intact Neck Neck: Yes normal visual inspection and Yes full ROM Resp Effort & Inspection: normal respiratory effort Auscultation: clear to auscultation bilaterally Cardio Rate: regular rate Rhythm: regular rhythm Heart sounds: S1 normal heart sound present and S2 normal heart sound present GI Other: Abdomen is soft and nontender Skin Other: The skin is dry and unremarkable Neuro General: patient oriented x3, gait normal, tone normal, moves all extremities, no focal motor deficits and CN's II-XI intact bilaterally Extrem Other: There is no calf swelling or tenderness. No asymmetry. No peripheral edema. Course Reevaluation(s) Reevaluation #1: I, Dr. Aparicio have take over the care of this patient, I reviewed pertinent blood work and imaging, re-evaluated the patient when appropriate. Time: 09:31 Medications Administered Generic Name Dose Route Start Last Admin Trade Name Freq PRN Reason Stop Dose Admin Acamprosate 666 mg 07/14/25 15:00 07/14/25 15:28 Acamprosate Calcium 333 Mg Tablet. PO 666 mg TID MASON Administration Bupropion HCl 300 mg 07/14/25 09:45 07/14/25 10:17 Bupropion Hcl Xl 300 Mg Tab.Er.24h PO 300 mg DAILY MASON Administration Clonidine HCl 0.2 mg 07/14/25 21:00 07/14/25 10:17 Clonidine Hcl 0.2 Mg Tablet PO 0.2 mg BID MASON Administration Protocol Gabapentin 400 mg 07/14/25 15:00 07/14/25 15:29 Gabapentin 400 Mg Capsule PO 400 mg TID MASON Administration Methadone HCl 190 mg 07/15/25 09:00 07/14/25 10:30 Methadone Hcl 20 Mg/2 Ml Oral.Conc PO 190 mg DAILY MASON Administration Nicotine Polacrilex 4 mg 07/14/25 12:56 07/14/25 17:33 Nicotine Polacrilex Lozenge 4 Mg Lozenge BUCCAL 4 mg Q2H PRN Administration Nicotine Cravings Risperidone 0.5 mg 07/14/25 15:05 07/14/25 15:29 Risperidone 0.5 Mg Tablet PO 0.5 mg BID@0900,1400 MASON Administration Sertraline HCl 150 mg 07/15/25 09:00 07/14/25 10:30 Sertraline Hcl 50 Mg Tablet PO 150 mg DAILY MASON Administration Discontinued Medications Generic Name Dose Route Start Last Admin Trade Name Toddq PRN Reason Stop Dose Admin Nicotine Polacrilex 4 mg 07/14/25 09:31 07/14/25 10:16 Nicotine Polacrilex Lozenge 4 Mg Lozenge BUCCAL 4 mg Q2H PRN Administration Nicotine Cravings Medical Decision Making Medical Decision Making MDM Narrative: The patient is a 29-year-old male with a history of depression and substance use disorder. He presents voluntarily with symptoms of depression and suicidal ideation. He admits to recent IV drug use despite having recently been hospitalized. He seems medically stable and clear for evaluation by the care team. The patient was seen by the care team. Recommendation is for inpatient hospitalization. The patient will therefore be kept in the emergency department psychiatric pod for a behavioral health inpatient bed search on a section 12. The patient will be placed in physician observation. Lab Data 07/14/25 00:59 07/14/25 00:39 Labs: Lab Results 07/14/25 07/14/25 Range/Units 00:39 00:59 WBC 11.2 H (4.8-10.8) X10*3/uL RBC 4.75 D (4.60-5.80) X10*6/uL Hgb 13.0 L (14.0-18.0) g/dl Hct 37.9 L (42.0-52.0) % MCV 79.8 L (80.0-98.0) fL MCH 27.4 (27.0-33.0) pg MCHC 34.3 (31.0-36.0) g/dl RDW 13.1 (11.0-16.0) % Plt Count 451 H D (160-400) X10*3/uL MPV 8.4 L (9.4-12.4) fL Immature Gran % (Auto) 0.3 (0.0-0.4) % Neut % (Auto) 45.4 (45-73) % Lymph % (Auto) 46.0 H (20-40) % [place] % (Auto) 6.9 (2-11) % Eos % (Auto) 1.0 (0-4) % Baso % (Auto) 0.4 (0-2) % Lymph # (Auto) 5.2 H (1.2-4.9) X10*3/uL [place] # (Auto) 0.8 (0.1-1.2) X10*3/uL Eos # (Auto) 0.1 (0.0-0.4) X10*3/uL Baso # (Auto) 0.1 (0.0-0.2) X10*3/uL Abs Immat Gran (auto) 0.03 (0.00-0.03) X10*3/uL Absolute Neuts (auto) 5.1 (2.0-8.3) x10*3/uL Absolute Nucleated RBC 0.000 (0.0-0.012) X10*3/uL Nucleated RBC % (auto) 0.0 (0.0-0.2) /100WBC Smear Tech's Comments VERIFIED Sodium 134 L (135-145) mmol/L Potassium 4.8 D (3.3-5.1) mmol/L Chloride 104 (96-108) mmol/L Carbon Dioxide 15 L (22-29) mmol/L Anion Gap 20 (12-20) BUN 13 (9-16) mg/dL Creatinine 0.96 (0.5-1.4) mg/dL Estim Creat Clear Calc 128.2 Estimated GFR > 60 Random Glucose 92 (60-115) mg/dL Calcium 9.6 D (8.4-10.2) mg/dL Total Bilirubin 0.5 (0.0-1.0) mg/dL AST 82 H (5-37) U/L ALT 32 (0-40) U/L Alkaline Phosphatase 115 (39-117) U/L Total Protein 8.8 H (6.5-8.0) g/dL Albumin 4.8 (3.5-5.0) g/dL Urine Color Yellow Urine Appearance Clear Urine pH 5.5 (5.0-9.0) Ur Specific [place] 1.025 (1.005-1.025) Urine Protein Trace (Neg-Trace) mg/dL Urine Glucose (UA) Negative (Negative) mg/dL Urine Ketones Trace (Negative) mg/dL Urine Blood Negative (Negative) Urine Nitrite Negative (Negative) Ur Leukocyte Esterase Negative (Negative) Urine RBC 0-2 (0-2) /HPF Urine WBC 0-5 (0-5) /HPF Ur Squamous Epith Cells 0-2 (0-2) /HPF Urine Bacteria None Seen (None Seen) Hyaline Casts 0-2 (0-2) /LPF Salicylates < 5.0 L (15-30) mg/dL Urine Opiates Screen POSITIVE H (Not Detect) Ur Buprenorphine Scrn Not Detected (Not Detect) ng/mL Ur Oxycodone Screen Not Detected (Not Detect) ng/mL Urine Methadone Screen Positive H (Not Detect) ng/mL Urine Fentanyl Screen POSITIVE H (Not Detect) Acetaminophen < 3 (<30) mcg/mL Ur Barbiturates Screen Not Detected (Not Detect) Ur Phencyclidine Scrn Not Detected (Not Detect) Ur Amphetamines Screen Not Detected (Not Detect) U Benzodiazepines Scrn Not Detected (Not Detect) Urine Cocaine Screen POSITIVE H (Not Detect) U Marijuana (THC) Screen Not Detected (Not Detect) Ethyl Alcohol < 10 mg/dL Discharge Plan Discharge Clinical Impression: Depression, Substance use disorder Patient Disposition: Admitted As Inpatient Interventions: Admission Worksheet (ED) Last Done: 07/14/25 15:16 Discharge Date/Time: 07/14/25 15:17
[2025-07-14 06:21] VITALS: RESP 16
[2025-07-14 07:23] VITALS: BP 135/75; PULSE 87; RESP 18; TEMP 36.6; O2SAT 96
--- NOTE | 2025-07-14 07:25 | PC.NURSE ---
Assumed care, report received. Pt is awake and eating breakfast. POC to continue to locate an Adult IP bed.
--- NOTE | 2025-07-14 07:49 | HE.PHANOTE ---
METHADONE Dose:190mg per SHARON Jenkins at [facility]. Last dosed 07/13/2025 @0743.
--- NOTE | 2025-07-14 08:05 | ECG_ITS ---
Test Reason : check prolonged qt Blood Pressure : */* mmHG Vent. Rate : 91 BPM Atrial Rate : 91 BPM P-R Int : 142 ms QRS Dur : 98 ms QT Int : 314 ms P-R-T Axes : 68 30 30 degrees QTcB Int : 386 ms Normal sinus rhythm with sinus arrhythmia Nonspecific T wave abnormality Abnormal ECG When compared with ECG of 10-Jan-2025 03:09, QT has shortened Referred By: Baltazar Cook Electronically Signed By: DEEPA CORTEZ
--- NOTE | 2025-07-14 09:49 | PHA.MEDREC ---
Pharmacy Consult ? Medication Reconciliation Reviewed med rec done by nursing. All meds match claims.
[2025-07-14] MEDS: Nicotine Polacrilex Lozenge 4 MG LOZENGE BUCCAL ×3 (10:16→17:33)
[2025-07-14] MEDS: buPROPion HCl XL 300 MG TAB.ER.24H PO (10:17)
[2025-07-14] MEDS: methADONE HCl 20 MG/2 ML ORAL.CONC 190 MG PO (10:30)
[2025-07-14 14:00] VITALS: BP 134/91; PULSE 92; RESP 16; TEMP 36.6; O2SAT 95
--- NOTE | 2025-07-14 14:38 | HO.PSYADMNOT ---
HPI Date of Service: 07/14/25 Chief Complaint: SI Sources of Information: patient interviewed, chart reviewed and crisis/core team assessment reviewed HPI Subjective Notes: Conditional Voluntary and 3 Day Narrative: Patient is a 29-year-old male with history of MDD, anxiety, opioid and cocaine use disorder who presents for depression with SI in the face of relapse. Patient reports that he was at the [email or web address] program for about a month, During which time his mood was good enough, but still pretty anxious with many worries about staying sober, what if he relapses, avoiding cravings...Pt says last week he was out playing basketball, saw a [employer]isted [employer] can on the ground which prompted him to want to drink and so he bought when; he got caught, but not kicked out. However since then he felt they were treating him differently...he felt they were shaming him... Which resulted in increased guilty, hopeless feelings. Patient then went out bought some stuff relapsed and this time when caught was discharged from the program this past Thursday. Feeling ashamed, He did not want to call his mom, so he was homeless in the streets, using cocaine/heroin daily. He started feeling very down, and started having intermittent SI with a vague plan to OD; instead however he thought about his son and knew he did not want to leave his son without a father (father/sister both by suicide). Patient reports he has ongoing anxiety that is ever present; sometimes becomes panic but only about once a month. Patient was drinking excessively for about 3 days Past Psychiatric History: hosps: none SA: none SIB: h/o cutting x 1 HIB: none outpt: h/o therapy about 8 years ago h/o zoloft Rx. currently on wellbutrin and gabapentin from PCP Medical Evaluation Reviewed: Yes [facility] Medical History (Updated 07/14/25 @ 17:52 by Alejandro Perez MD) Alcohol abuse Cocaine use disorder MDD (major depressive disorder), recurrent severe, without psychosis Hepatitis C Anxiety Foreign body (FB) in soft tissue Smoker Hx of substance abuse Surgical History No significant past surgical history Family History: father - suicided. depression, opioids. mother - cocaine, alcohol, heroin. attempted suicide. sister by suicide this past Aug 2025 Social History: HEAVENLY Has 1 son; has not seen him in a year Substance History: Opioid/cocaine abuse; longest sobriety 8 months (about 2 years ago) Trauma History: denies Diagnostics Vital Signs (24Hr): Vital Signs - 24 hr 07/14/25 00:01 07/14/25 06:21 07/14/25 07:23 Temperature 97.8 F 97.8 F Pulse Rate 101 H 87 Respiratory Rate 20 16 18 Blood Pressure 137/90 H 135/75 Pulse Oximetry 95 96 Oxygen Delivery Method Room Air Room Air 07/14/25 14:00 Temperature 98 F Pulse Rate 92 Respiratory Rate 16 Blood Pressure 134/91 H Pulse Oximetry 95 Oxygen Delivery Method Room Air BMI result Body Mass Index 31.9 Labs 07/14/25 00:59 07/14/25 00:39 Labs: Laboratory Results - last 48 hr 07/14/25 07/14/25 00:39 00:59 WBC 11.2 H RBC 4.75 D Hgb 13.0 L Hct 37.9 L MCV 79.8 L MCH 27.4 MCHC 34.3 RDW 13.1 Plt Count 451 H D MPV 8.4 L Immature Gran % (Auto) 0.3 Neut % (Auto) 45.4 Lymph % (Auto) 46.0 H [place] % (Auto) 6.9 Eos % (Auto) 1.0 Baso % (Auto) 0.4 Lymph # (Auto) 5.2 H [place] # (Auto) 0.8 Eos # (Auto) 0.1 Baso # (Auto) 0.1 Abs Immat Gran (auto) 0.03 Absolute Neuts (auto) 5.1 Absolute Nucleated RBC 0.000 Nucleated RBC % (auto) 0.0 Smear Tech's Comments VERIFIED Sodium 134 L Potassium 4.8 D Chloride 104 Carbon Dioxide 15 L Anion Gap 20 BUN 13 Creatinine 0.96 Estim Creat Clear Calc 128.2 Estimated GFR > 60 Random Glucose 92 Calcium 9.6 D Total Bilirubin 0.5 AST 82 H ALT 32 Alkaline Phosphatase 115 Total Protein 8.8 H Albumin 4.8 Urine Color Yellow Urine Appearance Clear Urine pH 5.5 Ur Specific [place] 1.025 Urine Protein Trace Urine Glucose (UA) Negative Urine Ketones Trace Urine Blood Negative Urine Nitrite Negative Ur Leukocyte Esterase Negative Urine RBC 0-2 Urine WBC 0-5 Ur Squamous Epith Cells 0-2 Urine Bacteria None Seen Hyaline Casts 0-2 Salicylates < 5.0 L Urine Opiates Screen POSITIVE H Ur Buprenorphine Scrn Not Detected Ur Oxycodone Screen Not Detected Urine Methadone Screen Positive H Urine Fentanyl Screen POSITIVE H Acetaminophen < 3 Ur Barbiturates Screen Not Detected Ur Phencyclidine Scrn Not Detected Ur Amphetamines Screen Not Detected U Benzodiazepines Scrn Not Detected Urine Cocaine Screen POSITIVE H U Marijuana (THC) Screen Not Detected Ethyl Alcohol < 10 Meds/Allergies Meds Home Medications ?Medication ?Instructions ?Recorded ?Confirmed ?Type methadone 10 mg/mL oral 190 mg PO DAILY 01/10/25 07/14/25 History concentrate (Methadose) acamprosate 333 mg tablet,delayed 666 mg PO TID 07/14/25 07/14/25 History release bupropion HCl 300 mg 24 hr tablet, 300 mg PO QAM 07/14/25 07/14/25 History extended release clonidine HCl 0.2 mg tablet 0.2 mg PO BID 07/14/25 07/14/25 History gabapentin 400 mg capsule 400 mg PO TID 07/14/25 07/14/25 History hydroxyzine pamoate 50 mg capsule 50 - 100 mg PO TID PRN anxiety 07/14/25 07/14/25 History nicotine (polacrilex) 4 mg buccal 4 mg PO Q2H PRN Nicotine Cravings 07/14/25 07/14/25 History lozenge quetiapine 50 mg tablet 50 mg PO BEDTIME 07/14/25 07/14/25 History sertraline 100 mg tablet 150 mg PO DAILY 07/14/25 07/14/25 History Allergies Allergies Allergy/AdvReac Type Severity Reaction Status Date / Time No Known Allergies (No Known Allergy Verified 07/14/25 00:04 Allergies*) Mental Status Exam Mental Status Exam Narrative: Pt is alert and oriented; behavior is cooperative, friendly and calm; patient is not in distress; dressed in casual attire with adequate hygiene; mood is described as depressed and affect congruent, downcast; eye contact appropriate; Speech is normal rate, volume and prosody and not pressured; some psychomotor retardation present; thought process is organized and goal directed; Thought content is on tx; otherwise pertinent to relevant topics and without any delusional content, paranoid ideations or grandiosity; denies any SI/HI. Denies AVH and there is no evidence of perceptual disturbance. Patients insight and judgment impaired but improving Assessment & Plan Assessment & Plan (1) MDD (major depressive disorder), recurrent severe, without psychosis: Status: Acute Code(s): F33.2 - Major depressive disorder, recurrent severe without psychotic features (2) Anxiety: Status: Acute Code(s): F41.9 - Anxiety disorder, unspecified (3) Cocaine use disorder: Status: Acute Code(s): F14.10 - Cocaine abuse, uncomplicated (4) Alcohol abuse: Status: Acute Code(s): F10.10 - Alcohol abuse, uncomplicated Plan HPI Patient is a 29-year-old male with history of MDD, anxiety, opioid and cocaine use disorder who presents for depression with SI in the face of relapse. Patient reports that he was at the [facility] program for about a month, During which time his mood was good enough, but still pretty anxious with many worries about staying sober, what if he relapses, avoiding cravings...Pt says last week he was out playing basketball, saw a [employer] can on the ground which prompted him to want to drink and so he bought when; he got caught, but not kicked out. However since then he felt they were treating him differently...he felt they were shaming him... Which resulted in increased guilty, hopeless feelings. Patient then went out bought some stuff relapsed and this time when caught was discharged from the program this past Thursday. Feeling ashamed, He did not want to call his mom, so he was homeless in the streets, using cocaine/heroin daily. He started feeling very down, and started having intermittent SI with a vague plan to OD; instead however he thought about his son and knew he did not want to leave his son without a father (father/sister both by suicide). Patient reports he has ongoing anxiety that is ever present; sometimes becomes panic but only about once a month. Patient was drinking excessively for about 3 days Formulation/clinical reasoning: Patient has ongoing problematic anxiety; [facility] increased Zoloft to 150mg to help w/ anxiety about a week ago. Discussed multiple options including BuSpar which did not work; patient agreed to trial of Risperdal to see if that can calm anxiety while he tries to pursue sobriety (reviewed risks/side effects of Risperdal which patient understood and agreed to) Plan: CV Q 15 minute checks Will put patient on CIWA however he was only drinking for 3 days Start Risperdal 0.5 mg 0900/1400 to help tamped down anxiety (consider Trileptal) Continue Wellbutrin XL 300 mg Continue Zoloft 150 mg daily; increased about a week ago Continue methadone Continue other home meds Patient educated on: diagnosis, medication risk/benefits, substance abuse and therapeutic strategies Informed Consent: understands Reason for continued inpatient stay Substantial Risk for: rapid decompensation Statement Statement: I have reviewed the history and physical and performed a pertinent examination on my patient. No changes have occurred unless specified. If the History and Physical was not performed prior to admission, the Hospitalist's service will be consulted for completing the admission physical. Time Spent With Patient Time: Total time managing care of this patient today ____ minutes.
--- NOTE | 2025-07-14 16:22 | PC.ADMIT ---
29 y/o male admitted to [facility] from [facility] [place] [facility]5 on a CV. Pt admitted for SI with plan to OD on fentanyl. Pt was recently discharged from the [facility] treatment program after he failed a drug screen. Pt was previously discharged from in 06/2024 to [facility] for a few weeks and then to [facility], where he failed a drug screening, violated probation and subsequently was arrested in November. Patient reportedly had been incarcerated five times, all for drug related charges such as possession, theft, and violating probation. Pt has a long ongoing struggle with substance use. Utox positive for opiates, methadone, fentanyl, and cocaine. Pt reported 5 bags of fentanyl daily as well as 3 (24oz) cans of Mihir?s hard lemonade daily. Pt receives Methadone from [facility] methadone clinic, and stated he wanted to see Addictions Medicine as he did not believe the current dose of 190mg of Methadone would be enough this admission given his substance use. Pt is homeless, but able to stay at his mother?s house occasionally. Pt carries a dx of Unspecified Depressive Disorder,? Opioid Use D/O, Cocaine Use D/O, and Alcohol Use D/O. On arrival pt was calm and cooperative. Pt endorsed anxiety/depression and reported passive thoughts of SI, but stated he could be safe on the unit. Pt reported a trauma history, but declined to elaborate. Per report pt?s father committed suicide in 2007 and pt?s sister committed suicide in 2023. Pt stated he would like to see hospital greenskeeper head this admission (greenskeeper head made aware). Pt placed on CIWA protocol and nicotine lozenges ordered per pt request. Pt declined to sign any releases, and declined to complete safety tool. Pt placed on 15 minute checks.
[2025-07-14 20:00] VITALS: BP 125/75; PULSE 77; TEMP 36.6; O2SAT 97
[2025-07-14 21:38] VITALS: BP 125/75
[2025-07-15] MEDS: Nicotine Polacrilex Lozenge 4 MG LOZENGE BUCCAL ×6 (00:11→23:06)
[2025-07-15] MEDS: methADONE HCl 20 MG/2 ML ORAL.CONC 190 MG PO (08:06)
[2025-07-15 08:45] VITALS: BP 129/71; PULSE 74; TEMP 36.7; O2SAT 99
[2025-07-15 09:02] VITALS: BP 129/71
[2025-07-15] MEDS: buPROPion HCl XL 300 MG TAB.ER.24H PO (09:02)
--- NOTE | 2025-07-15 09:03 | P.PNPSI_ITS ---
Subjective Subjective Date of Service: 07/15/25 Reason For Visit: SI Interim History: Patient reports he is tolerating medication changes well. He denies active SI. Says he is still depressed. Thinking about his recovery and the effects of the substance use on his life. Calm. No behavioral outbursts. Review of Systems Review of Systems Yes all other systems are reviewed and are negative Mental Status Exam Mental Status Exam Narrative: Pt is alert and oriented; behavior is cooperative, friendly and calm; patient is not in distress; dressed in casual attire with adequate hygiene; mood is described as depressed and affect congruent, downcast; eye contact appropriate; Speech is normal rate, volume and prosody and not pressured; some psychomotor retardation present; thought process is organized and goal directed; Thought content is on tx; otherwise pertinent to relevant topics and without any delusional content, paranoid ideations or grandiosity; denies any SI/HI. Denies AVH and there is no evidence of perceptual disturbance. Patients insight and judgment impaired but improving Diagnostics Vital Signs (24Hr): Vital Signs - 24 hr 07/14/25 14:00 07/14/25 20:00 07/14/25 21:38 Temperature 98 F 97.8 F Pulse Rate 92 77 Respiratory Rate 16 Blood Pressure 134/91 H 125/75 125/75 Pulse Oximetry 95 97 Oxygen Delivery Method Room Air Room Air BMI result Body Mass Index 31.9 Labs 07/14/25 00:59 07/14/25 00:39 Labs: Laboratory Results - last 48 hr 07/14/25 07/14/25 00:39 00:59 WBC 11.2 H RBC 4.75 D Hgb 13.0 L Hct 37.9 L MCV 79.8 L MCH 27.4 MCHC 34.3 RDW 13.1 Plt Count 451 H D MPV 8.4 L Immature Gran % (Auto) 0.3 Neut % (Auto) 45.4 Lymph % (Auto) 46.0 H [place] % (Auto) 6.9 Eos % (Auto) 1.0 Baso % (Auto) 0.4 Lymph # (Auto) 5.2 H [place] # (Auto) 0.8 Eos # (Auto) 0.1 Baso # (Auto) 0.1 Abs Immat Gran (auto) 0.03 Absolute Neuts (auto) 5.1 Absolute Nucleated RBC 0.000 Nucleated RBC % (auto) 0.0 Smear Tech's Comments VERIFIED Sodium 134 L Potassium 4.8 D Chloride 104 Carbon Dioxide 15 L Anion Gap 20 BUN 13 Creatinine 0.96 Estim Creat Clear Calc 128.2 Estimated GFR > 60 Random Glucose 92 Calcium 9.6 D Total Bilirubin 0.5 AST 82 H ALT 32 Alkaline Phosphatase 115 Total Protein 8.8 H Albumin 4.8 Urine Color Yellow Urine Appearance Clear Urine pH 5.5 Ur Specific [place] 1.025 Urine Protein Trace Urine Glucose (UA) Negative Urine Ketones Trace Urine Blood Negative Urine Nitrite Negative Ur Leukocyte Esterase Negative Urine RBC 0-2 Urine WBC 0-5 Ur Squamous Epith Cells 0-2 Urine Bacteria None Seen Hyaline Casts 0-2 Salicylates < 5.0 L Urine Opiates Screen POSITIVE H Ur Buprenorphine Scrn Not Detected Ur Oxycodone Screen Not Detected Urine Methadone Screen Positive H Urine Fentanyl Screen POSITIVE H Acetaminophen < 3 Ur Barbiturates Screen Not Detected Ur Phencyclidine Scrn Not Detected Ur Amphetamines Screen Not Detected U Benzodiazepines Scrn Not Detected Urine Cocaine Screen POSITIVE H U Marijuana (THC) Screen Not Detected Ethyl Alcohol < 10 Medications Medications Current Medications Acamprosate (Acamprosate Calcium 333 Mg Tablet.) 666 mg PO TID [facility] Last Admin: 07/14/25 21:38 Dose: 666 mg Acetaminophen (Acetaminophen 325 Mg Tablet) 650 mg PO Q6H PRN PRN Reason: Headache/Pain, Scale 1-10 Al Hydroxide/Mg Hydroxide (Magnesium Hydrox/Alum Hydrox 30 Ml Oral.Susp) 30 ml PO Q6H PRN PRN Reason: Heartburn/Nausea Bupropion HCl (Bupropion Hcl Xl 300 Mg Tab.Er.24h) 300 mg PO DAILY [facility] Last Admin: 07/14/25 10:17 Dose: 300 mg Clonidine HCl (Clonidine Hcl 0.2 Mg Tablet) 0.2 mg PO BID [facility]; Protocol Last Admin: 07/14/25 21:38 Dose: 0.2 mg Gabapentin (Gabapentin 400 Mg Capsule) 400 mg PO TID [facility] Last Admin: 07/14/25 21:37 Dose: 400 mg Hydroxyzine HCl (Hydroxyzine Hcl 50 Mg Tablet) 50 - 100 mg PO TID PRN PRN Reason: Anxiety Hydroxyzine HCl (Hydroxyzine Hcl 25 Mg Tablet) 25 mg PO Q6H PRN PRN Reason: mild anxiety Lorazepam (Lorazepam 1 Mg Tablet) 1 mg PO Q2H PRN PRN Reason: CIWA 6-10 Lorazepam (Lorazepam 1 Mg Tablet) 2 mg PO Q2H PRN PRN Reason: CIWA 11 and above Magnesium Hydroxide (Milk Of Magnesia 30 Ml Oral.Susp) 30 ml PO DAILY PRN PRN Reason: Constipation Methadone HCl (Methadone Hcl 20 Mg/2 Ml Oral.Conc) 190 mg PO DAILY [facility] Last Admin: 07/15/25 08:06 Dose: 190 mg Nicotine (Nicotine 21 Mg Patch.Td24) 21 mg TRANSDERMA DAILY PRN PRN Reason: smoking cessation Nicotine Polacrilex (Nicotine Polacrilex Lozenge 4 Mg Lozenge) 4 mg BUCCAL Q2H PRN PRN Reason: Nicotine Cravings Last Admin: 07/15/25 00:11 Dose: 4 mg Olanzapine (Olanzapine 5 Mg Tablet) 5 mg PO TID PRN PRN Reason: agitation Quetiapine Fumarate (Quetiapine Fumarate 50 Mg Tablet) 50 mg PO BEDTIME [facility] Last Admin: 07/14/25 21:38 Dose: 50 mg Risperidone (Risperidone 0.5 Mg Tablet) 0.5 mg PO BID@0900,1400 [facility] Last Admin: 07/14/25 15:29 Dose: 0.5 mg Sertraline HCl (Sertraline Hcl 50 Mg Tablet) 150 mg PO DAILY [facility] Last Admin: 07/14/25 10:30 Dose: 150 mg Trazodone HCl (Trazodone Hcl 50 Mg Tablet) 50 mg PO BEDTIME MRX1 PRN PRN Reason: Insomnia Allergies Allergies Allergy/AdvReac Type Severity Reaction Status Date / Time No Known Allergies (No Known Allergy Verified 07/14/25 00:04 Allergies*) Assessment & Plan Assessment & Plan (1) MDD (major depressive disorder), recurrent severe, without psychosis: Status: Acute Code(s): F33.2 - Major depressive disorder, recurrent severe without psychotic features (2) Anxiety: Status: Acute Code(s): F41.9 - Anxiety disorder, unspecified (3) Cocaine use disorder: Status: Acute Code(s): F14.10 - Cocaine abuse, uncomplicated (4) Alcohol abuse: Status: Acute Code(s): F10.10 - Alcohol abuse, uncomplicated Plan HPI Patient is a 29-year-old male with history of MDD, anxiety, opioid and cocaine use disorder who presents for depression with SI in the face of relapse. Patient reports that he was at [facility] for about a [facility], During which time his mood was good enough, but still pretty anxious with many worries about staying sober, what if he relapses, avoiding cravings...Pt says last week he was out playing basketball, saw a [employer] can on the ground which prompted him to want to drink and so he bought when; he got caught, but not kicked out. However since then he felt they were treating him differently...he felt they were shaming him... Which resulted in increased guilty, hopeless feelings. Patient then went out bought some stuff relapsed and this time when caught was discharged from the program this past Thursday. Feeling ashamed, He did not want to call his mom, so he was homeless in the streets, using cocaine/heroin daily. He started feeling very down, and started having intermittent SI with a vague plan to OD; instead however he thought about his son and knew he did not want to leave his son without a father (father/sister both by suicide). Patient reports he has ongoing anxiety that is ever present; sometimes becomes panic but only about once a month. Patient was drinking excessively for about 3 days Formulation/clinical reasoning: Patient has ongoing problematic anxiety; [facility] program increased Zoloft to 150mg to help w/ anxiety about a week ago. Discussed multiple options including BuSpar which did not work; patient agreed to trial of Risperdal to see if that can calm anxiety while he tries to pursue sobriety (reviewed risks/side effects of Risperdal which patient understood and agreed to) Plan: CV Q 15 minute checks Will put patient on CIWA however he was only drinking for 3 days Start Risperdal 0.5 mg 0900/1400 to help tamped down anxiety (consider Trileptal) Continue Wellbutrin XL 300 mg Continue Zoloft 150 mg daily; increased about a week ago Continue methadone Continue other home meds 07/15: Recent addition of Risperidone. Will continue current management and treatment plan. Reason for continued inpatient stay Substantial Risk for: harm to self, inability to function and rapid decompensation Time Spent With Patient Time: Total time managing care of this patient today ____ minutes.
--- NOTE | 2025-07-15 18:14 | PC.NURSE ---
Provider informed that [facility] refused morning labs.
[2025-07-15 20:00] VITALS: BP 121/77; PULSE 102; TEMP 36.4
[2025-07-15 20:43] VITALS: BP 121/77
[2025-07-16] MEDS: methADONE HCl 20 MG/2 ML ORAL.CONC 190 MG PO (07:49)
[2025-07-16 08:00] VITALS: BP 122/60; PULSE 97; RESP 18; TEMP 36.5; O2SAT 97
--- NOTE | 2025-07-16 08:36 | HO.PSYCHPN ---
Subjective Subjective Date of Service: 07/16/25 Reason For Visit: SI Interim History: Says he is still depressed but better 5-04/25 . Said he plans to call his mom to let her know he is here. Calm. No behavioral outbursts. Patient reports he is tolerating medication changes well. He denies SI. Review of Systems Review of Systems Yes all other systems are reviewed and are negative Mental Status Exam Mental Status Exam Narrative: Pt is alert and oriented; behavior is cooperative, friendly and calm; patient is not in distress; dressed in casual attire with adequate hygiene; mood is described as depressed and affect congruent, downcast; eye contact appropriate; Speech is normal rate, volume and prosody and not pressured; some psychomotor retardation present; thought process is organized and goal directed; Thought content is on tx; otherwise pertinent to relevant topics and without any delusional content, paranoid ideations or grandiosity; denies any SI/HI. Denies AVH and there is no evidence of perceptual disturbance. Patients insight and judgment impaired but improving Diagnostics Vital Signs (24Hr): Vital Signs - 24 hr 07/15/25 08:45 07/15/25 09:02 07/15/25 20:00 Temperature 98.0 F 97.5 F Pulse Rate 74 102 H Respiratory Rate Blood Pressure 129/71 129/71 121/77 Pulse Oximetry 99 Oxygen Delivery Method 07/15/25 20:43 07/16/25 08:00 Temperature 97.7 F Pulse Rate 97 Respiratory Rate 18 Blood Pressure 121/77 122/60 Pulse Oximetry 97 Oxygen Delivery Method Room Air BMI result Body Mass Index 31.9 Labs 07/14/25 00:59 07/14/25 00:39 Medications Medications Current Medications Acamprosate (Acamprosate Calcium 333 Mg Tablet.) 666 mg PO TID [facility] Last Admin: 07/15/25 20:43 Dose: 666 mg Acetaminophen (Acetaminophen 325 Mg Tablet) 650 mg PO Q6H PRN PRN Reason: Headache/Pain, Scale 1-10 Al Hydroxide/Mg Hydroxide (Magnesium Hydrox/Alum Hydrox 30 Ml Oral.Susp) 30 ml PO Q6H PRN PRN Reason: Heartburn/Nausea Bupropion HCl (Bupropion Hcl Xl 300 Mg Tab.Er.24h) 300 mg PO DAILY [facility] Last Admin: 07/15/25 09:02 Dose: 300 mg Clonidine HCl (Clonidine Hcl 0.2 Mg Tablet) 0.2 mg PO BID [facility]; Protocol Last Admin: 07/15/25 20:43 Dose: 0.2 mg Gabapentin (Gabapentin 400 Mg Capsule) 400 mg PO TID [facility] Last Admin: 07/15/25 20:43 Dose: 400 mg Hydroxyzine HCl (Hydroxyzine Hcl 50 Mg Tablet) 100 mg PO TID PRN PRN Reason: Anxiety Lorazepam (Lorazepam 1 Mg Tablet) 1 mg PO Q2H PRN PRN Reason: CIWA 6-10 Last Admin: 07/15/25 20:43 Dose: 1 mg Lorazepam (Lorazepam 1 Mg Tablet) 2 mg PO Q2H PRN PRN Reason: CIWA 11 and above Magnesium Hydroxide (Milk Of Magnesia 30 Ml Oral.Susp) 30 ml PO DAILY PRN PRN Reason: Constipation Methadone HCl (Methadone Hcl 20 Mg/2 Ml Oral.Conc) 190 mg PO DAILY [facility] Last Admin: 07/16/25 07:49 Dose: 190 mg Nicotine (Nicotine 21 Mg Patch.Td24) 21 mg TRANSDERMA DAILY PRN PRN Reason: smoking cessation Nicotine Polacrilex (Nicotine Polacrilex Lozenge 4 Mg Lozenge) 4 mg BUCCAL Q2H PRN PRN Reason: Nicotine Cravings Last Admin: 07/15/25 23:06 Dose: 4 mg Olanzapine (Olanzapine 5 Mg Tablet) 5 mg PO TID PRN PRN Reason: agitation Quetiapine Fumarate (Quetiapine Fumarate 50 Mg Tablet) 50 mg PO BEDTIME [facility] Last Admin: 07/15/25 20:43 Dose: 50 mg Risperidone (Risperidone 0.5 Mg Tablet) 0.5 mg PO BID@0900,1400 [facility] Last Admin: 07/15/25 13:12 Dose: 0.5 mg Sertraline HCl (Sertraline Hcl 50 Mg Tablet) 150 mg PO DAILY [facility] Last Admin: 07/15/25 09:03 Dose: 150 mg Trazodone HCl (Trazodone Hcl 50 Mg Tablet) 50 mg PO BEDTIME MRX1 PRN PRN Reason: Insomnia Allergies Allergies Allergy/AdvReac Type Severity Reaction Status Date / Time No Known Allergies (No Known Allergy Verified 07/14/25 00:04 Allergies*) Assessment & Plan Assessment & Plan (1) MDD (major depressive disorder), recurrent severe, without psychosis: Status: Acute Code(s): F33.2 - Major depressive disorder, recurrent severe without psychotic features (2) Anxiety: Status: Acute Code(s): F41.9 - Anxiety disorder, unspecified (3) Cocaine use disorder: Status: Acute Code(s): F14.10 - Cocaine abuse, uncomplicated (4) Alcohol abuse: Status: Acute Code(s): F10.10 - Alcohol abuse, uncomplicated Plan HPI Patient is a 29-year-old male with history of MDD, anxiety, opioid and cocaine use disorder who presents for depression with SI in the face of relapse. Patient reports that he was at [facility] for about a [facility], During which time his mood was good enough, but still pretty anxious with many worries about staying sober, what if he relapses, avoiding cravings...Pt says last week he was out playing basketball, saw a [employer] can on the ground which prompted him to want to drink and so he bought when; he got caught, but not kicked out. However since then he felt they were treating him differently...he felt they were shaming him... Which resulted in increased guilty, hopeless feelings. Patient then went out bought some stuff relapsed and this time when caught was discharged from the program this past Thursday. Feeling ashamed, He did not want to call his mom, so he was homeless in the streets, using cocaine/heroin daily. He started feeling very down, and started having intermittent SI with a vague plan to OD; instead however he thought about his son and knew he did not want to leave his son without a father (father/sister both by suicide). Patient reports he has ongoing anxiety that is ever present; sometimes becomes panic but only about once a month. Patient was drinking excessively for about 3 days Formulation/clinical reasoning: Patient has ongoing problematic anxiety; [facility] increased Zoloft to 150mg to help w/ anxiety about a week ago. Discussed multiple options including BuSpar which did not work; patient agreed to trial of Risperdal to see if that can calm anxiety while he tries to pursue sobriety (reviewed risks/side effects of Risperdal which patient understood and agreed to) Plan: CV Q 15 minute checks Will put patient on CIWA however he was only drinking for 3 days Start Risperdal 0.5 mg 0900/1400 to help tamped down anxiety (consider Trileptal) Continue Wellbutrin XL 300 mg Continue Zoloft 150 mg daily; increased about a week ago Continue methadone Continue other home meds 07/15: Recent addition of Risperidone. Will continue current management and treatment plan. 07/16: continue current management and treatment plan. Reason for continued inpatient stay Substantial Risk for: harm to self, inability to function and rapid decompensation Time Spent With Patient Time: Total time managing care of this patient today ____ minutes.
[2025-07-16] MEDS: buPROPion HCl XL 300 MG TAB.ER.24H PO (08:41)
[2025-07-16] MEDS: Nicotine Polacrilex Lozenge 4 MG LOZENGE BUCCAL ×5 (09:24→21:32)
[2025-07-16] MEDS: Nicotine 21 MG PATCH.TD24 TRANSDERMA (11:32)
[2025-07-16 20:00] VITALS: BP 129/76; PULSE 100; RESP 16; TEMP 36.9; O2SAT 97
[2025-07-17] MEDS: methADONE HCl 20 MG/2 ML ORAL.CONC 190 MG PO (07:54)
[2025-07-17 08:00] VITALS: BP 121/73; PULSE 88; RESP 18; TEMP 36.5; O2SAT 98
[2025-07-17] MEDS: Nicotine Polacrilex Lozenge 4 MG LOZENGE BUCCAL ×5 (08:30→22:07)
[2025-07-17] MEDS: buPROPion HCl XL 300 MG TAB.ER.24H PO (08:31)
--- NOTE | 2025-07-17 09:44 | HO.PSYCHPN ---
Subjective Subjective Date of Service: 07/17/25 Reason For Visit: SI Interim History: Reflected on patient's substance use. He is hopeful about going to [facility] in [place]. He reports he has been in and out of treatment for the past 3-4 years. 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 Then he and his GF were asked to leave their rental apartment because the landlord was selling the house. They went to [place] and stayed with his GF mother. She asked him to leave and he was in the streets of [place]. It's bad. He is hoping he can get his life together so he can be involved in his son's life. Mood is better. More hopeful. Tolerating his medications. Calm. No behavioral outbursts. He denies SI. Review of Systems Review of Systems Yes all other systems are reviewed and are negative Mental Status Exam Mental Status Exam Narrative: Pt is alert and oriented; behavior is cooperative, friendly and calm; patient is not in distress; dressed in casual attire with adequate hygiene; mood is described as depressed and affect congruent, downcast; eye contact appropriate; Speech is normal rate, volume and prosody and not pressured; some psychomotor retardation present; thought process is organized and goal directed; Thought content is on tx; otherwise pertinent to relevant topics and without any delusional content, paranoid ideations or grandiosity; denies any SI/HI. Denies AVH and there is no evidence of perceptual disturbance. Patients insight and judgment impaired but improving Diagnostics Vital Signs (24Hr): Vital Signs - 24 hr 07/16/25 20:00 07/17/25 08:00 Temperature 98.4 F 97.7 F Pulse Rate 100 88 Respiratory Rate 16 18 Blood Pressure 129/76 121/73 Pulse Oximetry 97 98 Oxygen Delivery Method Room Air Room Air BMI result Body Mass Index 31.9 Labs 07/14/25 00:59 07/14/25 00:39 Medications Medications Current Medications Acamprosate (Acamprosate Calcium 333 Mg Tablet.) 666 mg PO TID [facility] Last Admin: 07/17/25 08:31 Dose: 666 mg Acetaminophen (Acetaminophen 325 Mg Tablet) 650 mg PO Q6H PRN PRN Reason: Headache/Pain, Scale 1-10 Al Hydroxide/Mg Hydroxide (Magnesium Hydrox/Alum Hydrox 30 Ml Oral.Susp) 30 ml PO Q6H PRN PRN Reason: Heartburn/Nausea Bupropion HCl (Bupropion Hcl Xl 300 Mg Tab.Er.24h) 300 mg PO DAILY [facility] Last Admin: 07/17/25 08:31 Dose: 300 mg Clonidine HCl (Clonidine Hcl 0.2 Mg Tablet) 0.2 mg PO BID [facility]; Protocol Last Admin: 07/17/25 08:31 Dose: 0.2 mg Gabapentin (Gabapentin 400 Mg Capsule) 400 mg PO TID [facility] Last Admin: 07/17/25 08:31 Dose: 400 mg Hydroxyzine HCl (Hydroxyzine Hcl 50 Mg Tablet) 100 mg PO TID PRN PRN Reason: Anxiety Last Admin: 07/16/25 21:31 Dose: 100 mg Lorazepam (Lorazepam 1 Mg Tablet) 1 mg PO Q2H PRN PRN Reason: CIWA 6-10 Last Admin: 07/16/25 21:32 Dose: 1 mg Lorazepam (Lorazepam 1 Mg Tablet) 2 mg PO Q2H PRN PRN Reason: CIWA 11 and above Magnesium Hydroxide (Milk Of Magnesia 30 Ml Oral.Susp) 30 ml PO DAILY PRN PRN Reason: Constipation Methadone HCl (Methadone Hcl 20 Mg/2 Ml Oral.Conc) 190 mg PO DAILY [facility] Last Admin: 07/17/25 07:54 Dose: 190 mg Nicotine (Nicotine 21 Mg Patch.Td24) 21 mg TRANSDERMA DAILY PRN PRN Reason: smoking cessation Last Admin: 07/16/25 11:32 Dose: 21 mg Nicotine Polacrilex (Nicotine Polacrilex Lozenge 4 Mg Lozenge) 4 mg BUCCAL Q2H PRN PRN Reason: Nicotine Cravings Last Admin: 07/17/25 08:30 Dose: 4 mg Olanzapine (Olanzapine 5 Mg Tablet) 5 mg PO TID PRN PRN Reason: agitation Quetiapine Fumarate (Quetiapine Fumarate 50 Mg Tablet) 50 mg PO BEDTIME [facility] Last Admin: 07/16/25 20:31 Dose: 50 mg Risperidone (Risperidone 0.5 Mg Tablet) 0.5 mg PO BID@0900,1400 [facility] Last Admin: 07/17/25 08:31 Dose: 0.5 mg Sertraline HCl (Sertraline Hcl 50 Mg Tablet) 150 mg PO DAILY [facility] Last Admin: 07/17/25 08:32 Dose: 150 mg Trazodone HCl (Trazodone Hcl 50 Mg Tablet) 50 mg PO BEDTIME MRX1 PRN PRN Reason: Insomnia Allergies Allergies Allergy/AdvReac Type Severity Reaction Status Date / Time No Known Allergies (No Known Allergy Verified 07/14/25 00:04 Allergies*) Assessment & Plan Assessment & Plan (1) MDD (major depressive disorder), recurrent severe, without psychosis: Status: Acute Code(s): F33.2 - Major depressive disorder, recurrent severe without psychotic features (2) Anxiety: Status: Acute Code(s): F41.9 - Anxiety disorder, unspecified (3) Cocaine use disorder: Status: Acute Code(s): F14.10 - Cocaine abuse, uncomplicated (4) Alcohol abuse: Status: Acute Code(s): F10.10 - Alcohol abuse, uncomplicated Plan HPI Patient is a 29-year-old male with history of MDD, anxiety, opioid and cocaine use disorder who presents for depression with SI in the face of relapse. Patient reports that he was at the [facility] program for about a month, During which time his mood was good enough, but still pretty anxious with many worries about staying sober, what if he relapses, avoiding cravings...Pt says last week he was out playing basketball, saw a [employer] can on the ground which prompted him to want to drink and so he bought when; he got caught, but not kicked out. However since then he felt they were treating him differently...he felt they were shaming him... Which resulted in increased guilty, hopeless feelings. Patient then went out bought some stuff relapsed and this time when caught was discharged from the program this past Thursday. Feeling ashamed, He did not want to call his mom, so he was homeless in the streets, using cocaine/heroin daily. He started feeling very down, and started having intermittent SI with a vague plan to OD; instead however he thought about his son and knew he did not want to leave his son without a father (father/sister both by suicide). Patient reports he has ongoing anxiety that is ever present; sometimes becomes panic but only about once a month. Patient was drinking excessively for about 3 days Formulation/clinical reasoning: Patient has ongoing problematic anxiety; [facility] program increased Zoloft to 150mg to help w/ anxiety about a week ago. Discussed multiple options including BuSpar which did not work; patient agreed to trial of Risperdal to see if that can calm anxiety while he tries to pursue sobriety (reviewed risks/side effects of Risperdal which patient understood and agreed to) Plan: CV Q 15 minute checks Will put patient on CIWA however he was only drinking for 3 days Start Risperdal 0.5 mg 0900/1400 to help tamped down anxiety (consider Trileptal) Continue Wellbutrin XL 300 mg Continue Zoloft 150 mg daily; increased about a week ago Continue methadone Continue other home meds 07/15: Recent addition of Risperidone. Will continue current management and treatment plan. 07/16: continue current management and treatment plan. 07/17: continue current management and treatment plan. Reason for continued inpatient stay Substantial Risk for: harm to self and rapid decompensation Time Spent With Patient Time: Total time managing care of this patient today ____ minutes.
[2025-07-17] MEDS: Nicotine 21 MG PATCH.TD24 TRANSDERMA (12:17)
--- NOTE | 2025-07-17 13:26 | MHC.RECOVRN ---
TW met with pt on M5, in Group room? C, to discuss current alcohol and substance use and concerns & problems? related to increased risk of alcohol & substance use. On approach pt was watching TV with peers, in no apparent distress and was agreeable to meeting with TW. Pt?s had difficulty keeping eyes open during interview and speech was soft, mumbled and hoarse.? Pt reported he was [facility] for approximately 1 month and ?was getting bored from being cooped up? and decided to drink and use substances ?for something to do?. ?I drank 3-4 24oz Twisted Teas for like 4-5 days and used cocaine and heroin?.? Pt reports he began using cocaine at the age of 17 and most recently has been smoking it. Heroin use is reported to begin at the age of 25. ?It was always around me and where I lived so one day I just decided to try it? and reports IV use.? Pt states he has attended numerous treatment facilities. ?I?ve been to all the [facility]? He states he has not been able to achieve more than 1 month of continued abstinence.? Recovery supports reported include, family, sober friends, his current OTP clinic, [facility] where he is dosed 190 mg of methadone daily, as well as attending AA/NA. Pt also reports previously utilizing a track coach. Pt denies previous opioid overdose and current or past withdrawal symptoms. .? Discussed how alcohol and substance has impacted health, including negative impact on mental health and overall physical well being.? Discussed risk and reduction strategies including never using alone, always carrying Narcan, and utilizing [employer] for clean supplies as well as drinking below the recommended limit.? Provided pt with written resources including information on harm reduction, [facility] [place], recovery coaching, IOP/PHP and [facility].? Pt reports he plans to continue [facility] at [facility]? upon discharge and declines further intervention or appt for out patient treatment for OUD or AUD at this time.? ? Pt was provided with TW?s contact information if questions or concerns arise. Pt denies further questions or concerns at this time.?
[2025-07-17 20:00] VITALS: BP 108/66; PULSE 91; RESP 16; TEMP 36.4; O2SAT 98
[2025-07-17 22:03] VITALS: BP 131/70
[2025-07-18] MEDS: methADONE HCl 20 MG/2 ML ORAL.CONC 190 MG PO (08:02)
[2025-07-18 08:53] VITALS: BP 113/67; PULSE 81; RESP 16; TEMP 36.4; O2SAT 96
[2025-07-18] MEDS: buPROPion HCl XL 300 MG TAB.ER.24H PO (08:55)
[2025-07-18] MEDS: Nicotine Polacrilex Lozenge 4 MG LOZENGE BUCCAL ×4 (09:39→22:37)
--- NOTE | 2025-07-18 09:47 | P.PNPSI_ITS ---
Subjective Subjective Date of Service: 07/18/25 Reason For Visit: SI Interim History: met with patient; discussed with team; reviewed chart Patient reports that overall his mood is better. Still feels quite anxious but thinks that Risperdal may have helped somewhat; patient agrees to increase dose. Discussed p.r.n. Ativan and he accepts its discontinuation due to associated risks. Patient shared about his shame of relapse. Skin Former explored patient's history it seems he was clearly groomed for substance abuse from a young age; magazine writer provided education on how the brain responds to addiction and why people relapse even when they do not want to. Patient will try to consider ways he can resist relapse in the future Mental Status Exam Mental Status Exam Narrative: Pt is alert and oriented; behavior is cooperative, friendly and calm; patient is not in distress; dressed in casual attire with unkempt hair but adequate hygiene; mood is described as a little better... Anxious and affect congruent; eye contact appropriate; Speech is normal rate, volume and prosody and not pressured; no psychomotor agitation/retardation present; thought process is organized and goal directed; Thought content is on tx; otherwise pertinent to relevant topics and without any delusional content, paranoid ideations or grandiosity; denies any SI/HI. Denies AVH and there is no evidence of perceptual disturbance. Patients insight and judgment appear intact. Diagnostics Vital Signs (24Hr): Vital Signs - 24 hr 07/17/25 20:00 07/17/25 22:03 07/18/25 08:53 Temperature 97.5 F 97.5 F Pulse Rate 91 81 Respiratory Rate 16 16 Blood Pressure 108/66 131/70 113/67 Pulse Oximetry 98 96 Oxygen Delivery Method Room Air Room Air BMI result Body Mass Index 31.9 Labs 07/14/25 00:59 07/14/25 00:39 Medications Medications Current Medications Acamprosate (Acamprosate Calcium 333 Mg Tablet.) 666 mg PO TID [facility] Last Admin: 07/18/25 08:56 Dose: 666 mg Acetaminophen (Acetaminophen 325 Mg Tablet) 650 mg PO Q6H PRN PRN Reason: Headache/Pain, Scale 1-10 Al Hydroxide/Mg Hydroxide (Magnesium Hydrox/Alum Hydrox 30 Ml Oral.Susp) 30 ml PO Q6H PRN PRN Reason: Heartburn/Nausea Bupropion HCl (Bupropion Hcl Xl 300 Mg Tab.Er.24h) 300 mg PO DAILY [facility] Last Admin: 07/18/25 08:55 Dose: 300 mg Clonidine HCl (Clonidine Hcl 0.2 Mg Tablet) 0.2 mg PO BID [facility]; Protocol Last Admin: 07/18/25 08:54 Dose: 0.2 mg Gabapentin (Gabapentin 400 Mg Capsule) 400 mg PO TID [facility] Last Admin: 07/18/25 08:55 Dose: 400 mg Hydroxyzine HCl (Hydroxyzine Hcl 50 Mg Tablet) 100 mg PO TID PRN PRN Reason: Anxiety Last Admin: 07/18/25 09:43 Dose: 100 mg Lorazepam (Lorazepam 1 Mg Tablet) 1 mg PO BID PRN PRN Reason: Severe anxiety Last Admin: 07/17/25 22:03 Dose: 1 mg Magnesium Hydroxide (Milk Of Magnesia 30 Ml Oral.Susp) 30 ml PO DAILY PRN PRN Reason: Constipation Methadone HCl (Methadone Hcl 20 Mg/2 Ml Oral.Conc) 190 mg PO DAILY [facility] Last Admin: 07/18/25 08:02 Dose: 190 mg Nicotine (Nicotine 21 Mg Patch.Td24) 21 mg TRANSDERMA DAILY PRN PRN Reason: smoking cessation Last Admin: 07/17/25 12:17 Dose: 21 mg Nicotine Polacrilex (Nicotine Polacrilex Lozenge 4 Mg Lozenge) 4 mg BUCCAL Q2H PRN PRN Reason: Nicotine Cravings Last Admin: 07/18/25 09:39 Dose: 4 mg Olanzapine (Olanzapine 5 Mg Tablet) 5 mg PO TID PRN PRN Reason: agitation Quetiapine Fumarate (Quetiapine Fumarate 50 Mg Tablet) 50 mg PO BEDTIME [facility] Last Admin: 07/17/25 22:03 Dose: 50 mg Risperidone (Risperidone 0.5 Mg Tablet) 0.5 mg PO BID@0900,1400 [facility] Last Admin: 07/18/25 08:56 Dose: 0.5 mg Sertraline HCl (Sertraline Hcl 50 Mg Tablet) 150 mg PO DAILY [facility] Last Admin: 07/18/25 08:55 Dose: 150 mg Trazodone HCl (Trazodone Hcl 50 Mg Tablet) 50 mg PO BEDTIME MRX1 PRN PRN Reason: Insomnia Allergies Allergies Allergy/AdvReac Type Severity Reaction Status Date / Time No Known Allergies (No Known Allergy Verified 07/14/25 00:04 Allergies*) Assessment & Plan Assessment & Plan (1) MDD (major depressive disorder), recurrent severe, without psychosis: Status: Acute Code(s): F33.2 - Major depressive disorder, recurrent severe without psychotic features (2) Anxiety: Status: Acute Code(s): F41.9 - Anxiety disorder, unspecified (3) Cocaine use disorder: Status: Acute Code(s): F14.10 - Cocaine abuse, uncomplicated (4) Alcohol abuse: Status: Acute Code(s): F10.10 - Alcohol abuse, uncomplicated Plan HPI Patient is a 29-year-old male with history of MDD, anxiety, opioid and cocaine use disorder who presents for depression with SI in the face of relapse. Patient reports that he was [facility] for about [facility], During which time his mood was good enough, but still pretty anxious with many worries about staying sober, what if he relapses, avoiding cravings...Pt says last week he was out playing basketball, saw a Twisted Tea can on the ground which prompted him to want to drink and so he bought when; he got caught, but not kicked out. However since then he felt they were treating him differently...he felt they were shaming him... Which resulted in increased guilty, hopeless feelings. Patient then went out bought some stuff relapsed and this time when caught was discharged from the program this past Thursday. Feeling ashamed, He did not want to call his mom, so he was homeless in the streets, using cocaine/heroin daily. He started feeling very down, and started having intermittent SI with a vague plan to OD; instead however he thought about his son and knew he did not want to leave his son without a father (father/sister both by suicide). Patient reports he has ongoing anxiety that is ever present; sometimes becomes panic but only about once a month. Patient was drinking excessively for about 3 days Formulation/clinical reasoning: Patient has ongoing problematic anxiety; [facility] increased Zoloft to 150mg to help w/ anxiety about a week ago. Discussed multiple options including BuSpar which did not work; patient agreed to trial of Risperdal to see if that can calm anxiety while he tries to pursue sobriety (reviewed risks/side effects of Risperdal which patient understood and agreed to) Hospital course: 07/15: Recent addition of Risperidone. Will continue current management and treatment plan. 07/16: continue current management and treatment plan. 07/17: continue current management and treatment plan. 07/18 Patient reports that overall his mood is better. Still feels quite anxious but thinks that Risperdal may have helped somewhat; patient agrees to increase dose. Discussed p.r.n. Ativan and he accepts its discontinuation due to associated risks. Patient shared about his shame of relapse. Skin Former explored patient's history it seems he was clearly groomed for substance abuse from a young age; magazine writer provided education on how the brain responds to addiction and why people relapse even when they do not want to. Patient will try to consider ways he can resist relapse in the future Plan: CV Q 15 minute checks Increase to Risperdal 1 mg mg 0900/1400 to help tamped down anxiety (consider Trileptal) Continue Wellbutrin XL 300 mg Continue Zoloft 150 mg daily; increased about a week ago Continue methadone Continue other home meds Patient educated on: diagnosis, medication risk/benefits, substance abuse and therapeutic strategies Informed Consent: understands Reason for continued inpatient stay Substantial Risk for: rapid decompensation Time Spent With Patient Time: Total time managing care of this patient today ____ minutes.
[2025-07-18 22:36] VITALS: BP 119/62
[2025-07-18 22:57] VITALS: BP 119/62; PULSE 84; RESP 16; TEMP 36.8; O2SAT 97
[2025-07-19 08:00] VITALS: BP 115/64; PULSE 87; RESP 18; TEMP 36.4; O2SAT 96
[2025-07-19] MEDS: methADONE HCl 20 MG/2 ML ORAL.CONC 190 MG PO (08:47)
[2025-07-19] MEDS: buPROPion HCl XL 300 MG TAB.ER.24H PO (08:49)
[2025-07-19] MEDS: Nicotine Polacrilex Lozenge 4 MG LOZENGE BUCCAL ×4 (09:42→21:40)
[2025-07-19] MEDS: Nicotine 21 MG PATCH.TD24 TRANSDERMA (09:42)
--- NOTE | 2025-07-19 09:52 | HO.PSYCHPN ---
Subjective Subjective Date of Service: 07/19/25 Reason For Visit: SI Interim History: met with patient; discussed with team Patient says that he overall is feeling better and that anxiety is lower with increased Risperdal dose. Discussed depression/anxiety again and referred to time when patient was sober for 8 much during which time his mood was good. Patient agrees that his anxiety/depression is mostly only situational and unlikely that further medication management will accomplish much. He thinks that current medication regimen is adequate for now and wants to continue. Patient is hopeful to get into a program. Mental Status Exam Mental Status Exam Narrative: Pt is alert and oriented; behavior is cooperative, friendly and calm; patient is not in distress; dressed in casual attire with unkempt hair but adequate hygiene; mood is described as a little better... and affect congruent; eye contact appropriate; Speech is normal rate, volume and prosody and not pressured; no psychomotor agitation/retardation present; thought process is organized and goal directed; Thought content is on tx; otherwise pertinent to relevant topics and without any delusional content, paranoid ideations or grandiosity; denies any SI/HI. Denies AVH and there is no evidence of perceptual disturbance. Patients insight and judgment are intact. Diagnostics Vital Signs (24Hr): Vital Signs - 24 hr 07/18/25 22:36 07/18/25 22:57 07/19/25 08:00 Temperature 98.2 F 97.5 F Pulse Rate 84 87 Respiratory Rate 16 18 Blood Pressure 119/62 119/62 115/64 Pulse Oximetry 97 96 Oxygen Delivery Method Room Air Room Air BMI result Body Mass Index 31.9 Labs 07/14/25 00:59 07/14/25 00:39 Medications Medications Current Medications Acamprosate (Acamprosate Calcium 333 Mg Tablet.) 666 mg PO TID [facility] Last Admin: 07/19/25 08:49 Dose: 666 mg Acetaminophen (Acetaminophen 325 Mg Tablet) 650 mg PO Q6H PRN PRN Reason: Headache/Pain, Scale 1-10 Al Hydroxide/Mg Hydroxide (Magnesium Hydrox/Alum Hydrox 30 Ml Oral.Susp) 30 ml PO Q6H PRN PRN Reason: Heartburn/Nausea Bupropion HCl (Bupropion Hcl Xl 300 Mg Tab.Er.24h) 300 mg PO DAILY [facility] Last Admin: 07/19/25 08:49 Dose: 300 mg Clonidine HCl (Clonidine Hcl 0.2 Mg Tablet) 0.2 mg PO BID [facility]; Protocol Last Admin: 07/19/25 08:49 Dose: 0.2 mg Gabapentin (Gabapentin 400 Mg Capsule) 400 mg PO TID [facility] Last Admin: 07/19/25 08:49 Dose: 400 mg Hydroxyzine HCl (Hydroxyzine Hcl 50 Mg Tablet) 100 mg PO TID PRN PRN Reason: Anxiety Last Admin: 07/18/25 22:38 Dose: 100 mg Magnesium Hydroxide (Milk Of Magnesia 30 Ml Oral.Susp) 30 ml PO DAILY PRN PRN Reason: Constipation Methadone HCl (Methadone Hcl 20 Mg/2 Ml Oral.Conc) 190 mg PO DAILY [facility] Last Admin: 07/19/25 08:47 Dose: 190 mg Nicotine (Nicotine 21 Mg Patch.Td24) 21 mg TRANSDERMA DAILY PRN PRN Reason: smoking cessation Last Admin: 07/19/25 09:42 Dose: 21 mg Nicotine Polacrilex (Nicotine Polacrilex Lozenge 4 Mg Lozenge) 4 mg BUCCAL Q2H PRN PRN Reason: Nicotine Cravings Last Admin: 07/19/25 09:42 Dose: 4 mg Olanzapine (Olanzapine 5 Mg Tablet) 5 mg PO TID PRN PRN Reason: agitation Quetiapine Fumarate (Quetiapine Fumarate 50 Mg Tablet) 50 mg PO BEDTIME [facility] Last Admin: 07/18/25 22:37 Dose: 50 mg Risperidone (Risperidone 1 Mg Tablet) 1 mg PO BID@0900,1400 [facility] Last Admin: 07/19/25 08:49 Dose: 1 mg Sertraline HCl (Sertraline Hcl 50 Mg Tablet) 150 mg PO DAILY [facility] Last Admin: 07/19/25 08:49 Dose: 150 mg Trazodone HCl (Trazodone Hcl 50 Mg Tablet) 50 mg PO BEDTIME MRX1 PRN PRN Reason: Insomnia Allergies Allergies Allergy/AdvReac Type Severity Reaction Status Date / Time No Known Allergies (No Known Allergy Verified 07/14/25 00:04 Allergies*) Assessment & Plan Assessment & Plan (1) MDD (major depressive disorder), recurrent severe, without psychosis: Status: Acute Code(s): F33.2 - Major depressive disorder, recurrent severe without psychotic features (2) Anxiety: Status: Acute Code(s): F41.9 - Anxiety disorder, unspecified (3) Cocaine use disorder: Status: Acute Code(s): F14.10 - Cocaine abuse, uncomplicated (4) Alcohol abuse: Status: Acute Code(s): F10.10 - Alcohol abuse, uncomplicated Plan HPI Patient is a 29-year-old male with history of MDD, anxiety, opioid and cocaine use disorder who presents for depression with SI in the face of relapse. Patient reports that [facility], During which time his mood was good enough, but still pretty anxious with many worries about staying sober, what if he relapses, avoiding cravings...Pt says last week he was out playing basketball, saw a Twisted Tea can on the ground which prompted him to want to drink and so he bought when; he got caught, but not kicked out. However since then he felt they were treating him differently...he felt they were shaming him... Which resulted in increased guilty, hopeless feelings. Patient then went out bought some stuff relapsed and this time when caught was discharged from the program this past Thursday. Feeling ashamed, He did not want to call his mom, so he was homeless in the streets, using cocaine/heroin daily. He started feeling very down, and started having intermittent SI with a vague plan to OD; instead however he thought about his son and knew he did not want to leave his son without a father (father/sister both by suicide). Patient reports he has ongoing anxiety that is ever present; sometimes becomes panic but only about once a month. Patient was drinking excessively for about 3 days Formulation/clinical reasoning: Patient has ongoing problematic anxiety; [facility] increased Zoloft to 150mg to help w/ anxiety about a week ago. Discussed multiple options including BuSpar which did not work; patient agreed to trial of Risperdal to see if that can calm anxiety while he tries to pursue sobriety (reviewed risks/side effects of Risperdal which patient understood and agreed to) Hospital course: 07/15: Recent addition of Risperidone. Will continue current management and treatment plan. 07/16: continue current management and treatment plan. 07/17: continue current management and treatment plan. 07/18 Patient reports that overall his mood is better. Still feels quite anxious but thinks that Risperdal may have helped somewhat; patient agrees to increase dose. Discussed p.r.n. Ativan and he accepts its discontinuation due to associated risks. Patient shared about his shame of relapse. Straddle Carrier Operator explored patient's history it seems he was clearly groomed for substance abuse from a young age; marketing copywriter provided education on how the brain responds to addiction and why people relapse even when they do not want to. Patient will try to consider ways he can resist relapse in the future 07/19 Patient says that he overall is feeling better and that anxiety is lower with increased Risperdal dose. Discussed depression/anxiety again and referred to time when patient was sober for 8 much during which time his mood was good. Patient agrees that his anxiety/depression is mostly only situational and unlikely that further medication management will accomplish much. He thinks that current medication regimen is adequate for now and wants to continue. Patient is hopeful to get into a program. Patient is stable on current medication regimen Patient remains in good behavioral and impulse control and appropriate with peers and staff. Plan: CV Q 15 minute checks continue to Risperdal 1 mg mg 0900/1400 to help tamped down anxiety (consider Trileptal) Continue Wellbutrin XL 300 mg Continue Zoloft 150 mg daily; increased about a week ago Continue methadone Continue other home meds Reviewed risks/side effects of antipsychotic medications and specifically risperidone Patient educated on: diagnosis, medication risk/benefits and therapeutic strategies Informed Consent: understands Reason for continued inpatient stay Substantial Risk for: stable for discharge and med/psych decompensation Time Spent With Patient Time: Total time managing care of this patient today ____ minutes.
--- NOTE | 2025-07-19 15:58 | PC.NURSE ---
[facility] Consult- Tanner was seen on 07/18/25 at 17:15 on M5 after a [facility] consult was placed by his provider for recovery support and resources upon discharge. Tanner was in his room upon approach, he was alert, oriented and cooperative though, reserved- relaxing and opening up after a few minutes of conversation. Tanner shared his ?shame? due to recent relapse and shared his support system presently. Tanner is looking to re-engage in AA and has support of his mother. The addiction disease process was discussed for perspective on relapse with emphasis on learning from past errors and focusing on positive aspects of recovery, as relapse is part of recovery. Tanner mentioned being there for his son as a goal. Tanner was given AA literature and meeting information as well as contacting outpatient resources [place]. He was also provided with [facility] clinic information as an outpatient resource if needed including daily walk in care if needed.
[2025-07-19 19:51] VITALS: BP 110/70; PULSE 88; RESP 18; TEMP 36.4; O2SAT 96
[2025-07-19 21:40] VITALS: BP 110/70
[2025-07-20 07:00] VITALS: BMI 33.6
[2025-07-20] MEDS: methADONE HCl 20 MG/2 ML ORAL.CONC 190 MG PO (07:47)
[2025-07-20 08:00] VITALS: BP 115/70; PULSE 120; RESP 18; TEMP 36.4; O2SAT 97
[2025-07-20] MEDS: buPROPion HCl XL 300 MG TAB.ER.24H PO (08:40)
[2025-07-20] MEDS: Nicotine Polacrilex Lozenge 4 MG LOZENGE BUCCAL ×3 (08:46→17:34)
--- NOTE | 2025-07-20 09:50 | HO.PSYCHPN ---
Subjective Subjective Date of Service: 07/20/25 Reason For Visit: SI Subjective Notes: Conditional Voluntary Interim History: Patient notes that he feels fine today. He notes that he has been sleeping well. He reports moderate anxiety and depression. He denies SI/HI/AH/VH. Medication Compliance: Yes Side effects from medications: No Attending Groups: Intermittent Review of Systems Acute medical concerns: No Mental Status Exam Mental Status Exam Narrative: Appearance: Casually dressed, adequate hygiene Behavior: Calm and cooperative throughout the interview. Eye contact is appropriate, and there are no signs of psychomotor agitation or retardation Speech: Normal volume and prosody Thought process: Logical and goal-directed Thought content: Future oriented no self-harming thoughts, tx related Mood: Euthymic Affect: Constricted SI:denies HI:denies VH/AH:none Delusions: None Insight/judgment: Fair insight and judgment Memory/cog: Alert, oriented x 4. grossly intact to conversational testing Diagnostics Vital Signs (24Hr): Vital Signs - 24 hr 07/19/25 19:51 07/19/25 21:40 Temperature 97.6 F Pulse Rate 88 Respiratory Rate 18 Blood Pressure 110/70 110/70 Pulse Oximetry 96 Oxygen Delivery Method Room Air BMI result Body Mass Index 33.6 Labs 07/14/25 00:59 07/14/25 00:39 Medications Medications Current Medications Acamprosate (Acamprosate Calcium 333 Mg Tablet.) 666 mg PO TID [facility] Last Admin: 07/20/25 08:40 Dose: 666 mg Acetaminophen (Acetaminophen 325 Mg Tablet) 650 mg PO Q6H PRN PRN Reason: Headache/Pain, Scale 1-10 Al Hydroxide/Mg Hydroxide (Magnesium Hydrox/Alum Hydrox 30 Ml Oral.Susp) 30 ml PO Q6H PRN PRN Reason: Heartburn/Nausea Bupropion HCl (Bupropion Hcl Xl 300 Mg Tab.Er.24h) 300 mg PO DAILY [facility] Last Admin: 07/20/25 08:40 Dose: 300 mg Clonidine HCl (Clonidine Hcl 0.2 Mg Tablet) 0.2 mg PO BID [facility]; Protocol Last Admin: 07/20/25 08:40 Dose: 0.2 mg Gabapentin (Gabapentin 400 Mg Capsule) 400 mg PO TID [facility] Last Admin: 07/20/25 08:40 Dose: 400 mg Hydroxyzine HCl (Hydroxyzine Hcl 50 Mg Tablet) 100 mg PO TID PRN PRN Reason: Anxiety Last Admin: 07/19/25 21:40 Dose: 100 mg Magnesium Hydroxide (Milk Of Magnesia 30 Ml Oral.Susp) 30 ml PO DAILY PRN PRN Reason: Constipation Methadone HCl (Methadone Hcl 20 Mg/2 Ml Oral.Conc) 190 mg PO DAILY [facility] Last Admin: 07/20/25 07:47 Dose: 190 mg Nicotine (Nicotine 21 Mg Patch.Td24) 21 mg TRANSDERMA DAILY PRN PRN Reason: smoking cessation Last Admin: 07/19/25 09:42 Dose: 21 mg Nicotine Polacrilex (Nicotine Polacrilex Lozenge 4 Mg Lozenge) 4 mg BUCCAL Q2H PRN PRN Reason: Nicotine Cravings Last Admin: 07/20/25 08:46 Dose: 4 mg Quetiapine Fumarate (Quetiapine Fumarate 50 Mg Tablet) 50 mg PO BEDTIME [facility] Last Admin: 07/19/25 21:41 Dose: 50 mg Risperidone (Risperidone 1 Mg Tablet) 1 mg PO BID@0900,1400 [facility] Last Admin: 07/20/25 08:40 Dose: 1 mg Sertraline HCl (Sertraline Hcl 50 Mg Tablet) 150 mg PO DAILY [facility] Last Admin: 07/20/25 08:40 Dose: 150 mg Trazodone HCl (Trazodone Hcl 50 Mg Tablet) 50 mg PO BEDTIME MRX1 PRN PRN Reason: Insomnia Allergies Allergies Allergy/AdvReac Type Severity Reaction Status Date / Time No Known Allergies (No Known Allergy Verified 07/14/25 00:04 Allergies*) Assessment & Plan Assessment & Plan (1) MDD (major depressive disorder), recurrent severe, without psychosis: Status: Acute Code(s): F33.2 - Major depressive disorder, recurrent severe without psychotic features (2) Anxiety: Status: Acute Code(s): F41.9 - Anxiety disorder, unspecified (3) Cocaine use disorder: Status: Acute Code(s): F14.10 - Cocaine abuse, uncomplicated (4) Alcohol abuse: Status: Acute Code(s): F10.10 - Alcohol abuse, uncomplicated Plan HPI Patient is a 29-year-old male with history of MDD, anxiety, opioid and cocaine use disorder who presents for depression with SI in the face of relapse. Patient reports that he [facility] for about [facility], During which time his mood was good enough, but still pretty anxious with many worries about staying sober, what if he relapses, avoiding cravings...Pt says last week he was out playing basketball, saw a [employer] can on the ground which prompted him to want to drink and so he bought when; he got caught, but not kicked out. However since then he felt they were treating him differently...he felt they were shaming him... Which resulted in increased guilty, hopeless feelings. Patient then went out bought some stuff relapsed and this time when caught was discharged from the program this past Thursday. Feeling ashamed, He did not want to call his mom, so he was homeless in the streets, using cocaine/heroin daily. He started feeling very down, and started having intermittent SI with a vague plan to OD; instead however he thought about his son and knew he did not want to leave his son without a father (father/sister both by suicide). Patient reports he has ongoing anxiety that is ever present; sometimes becomes panic but only about once a month. Patient was drinking excessively for about 3 days Formulation/clinical reasoning: Patient has ongoing problematic anxiety; [facility] increased Zoloft to 150mg to help w/ anxiety about a week ago. Discussed multiple options including BuSpar which did not work; patient agreed to trial of Risperdal to see if that can calm anxiety while he tries to pursue sobriety (reviewed risks/side effects of Risperdal which patient understood and agreed to) Hospital course: 07/15: Recent addition of Risperidone. Will continue current management and treatment plan. 07/16: continue current management and treatment plan. 07/17: continue current management and treatment plan. 07/18 Patient reports that overall his mood is better. Still feels quite anxious but thinks that Risperdal may have helped somewhat; patient agrees to increase dose. Discussed p.r.n. Ativan and he accepts its discontinuation due to associated risks. Patient shared about his shame of relapse. Automobile Service Writer explored patient's history it seems he was clearly groomed for substance abuse from a young age; editorial writer provided education on how the brain responds to addiction and why people relapse even when they do not want to. Patient will try to consider ways he can resist relapse in the future 9/3 Patient says that he overall is feeling better and that anxiety is lower with increased Risperdal dose. Discussed depression/anxiety again and referred to time when patient was sober for 8 much during which time his mood was good. Patient agrees that his anxiety/depression is mostly only situational and unlikely that further medication management will accomplish much. He thinks that current medication regimen is adequate for now and wants to continue. Patient is hopeful to get into a program. Patient is stable on current medication regimen Patient remains in good behavioral and impulse control and appropriate with peers and staff. 9/: Moderate anxiety and depressive symptoms. Calm and cooperative. Continue current treatment regimen. Plan: CV Q 15 minute checks continue to Risperdal 1 mg mg 0900/1400 to help tamped down anxiety (consider Trileptal) Continue Wellbutrin XL 300 mg Continue Zoloft 150 mg daily; increased about a week ago Continue methadone Continue other home meds Reviewed risks/side effects of antipsychotic medications and specifically risperidone Reason for continued inpatient stay Substantial Risk for: rapid decompensation Time Spent With Patient Time: Total time managing care of this patient today ____ minutes.
[2025-07-20 20:00] VITALS: BP 125/65; PULSE 82; RESP 20; TEMP 36.3; O2SAT 97
[2025-07-20 21:44] VITALS: BP 124/65
[2025-07-21] MEDS: Nicotine Polacrilex Lozenge 4 MG LOZENGE BUCCAL ×6 (00:26→23:27)
[2025-07-21] MEDS: methADONE HCl 20 MG/2 ML ORAL.CONC 190 MG PO (07:56)
[2025-07-21] MEDS: buPROPion HCl XL 300 MG TAB.ER.24H PO (09:02)
[2025-07-21 09:04] VITALS: BP 112/60; PULSE 85; RESP 16; TEMP 36.4; O2SAT 96
--- NOTE | 2025-07-21 10:35 | HO.PSYCHPN ---
Subjective Subjective Date of Service: 07/21/25 Reason For Visit: SI Subjective Notes: Conditional Voluntary Healthcare Proxy: No Guardianship: No Medical Problems Affecting Mental Status: No Interim History: Tanner reports he is doing well. He reports medication changes are helpful. He denies SE. He is visable and participating quietly in the milieu and with peers. Team reports he also appears brighter. He is beginning to attend the group program. Team is working on possible placement intakes for him. Reports sleep and appetite are intact. Denies SI,HI,AH, VH. No sx of acute psychosis or sina. Medication Compliance: Yes Side effects from medications: No Attending Groups: Yes Review of Systems Acute medical concerns: No Medical Review of Systems: unchanged Review of Systems Review of Systems Denies Mental Status Exam Mental Status Exam Patient Appearance: Appropriate Patient Orientation: Person, Place, Time and Situation Level of Consciousness: Alert Patient Behavior: Talkative and Good Eye Contact Mood Description: Calm and Constricted Affect Description: Constricted Patient Cognition Impaired: No Ability to Follow Directions: Good Speech Pattern: Spontaneous Speech and Soft-Spoken Memory Description: Intact Hallucinations: None Delusions: Not Present Thought Process: Intact Thought Content: positive for Intact, positive for Mckenzie and positive for Suicidal Ideation (denies) Judgement: Fair Diagnostics Vital Signs (24Hr): Vital Signs - 24 hr 07/20/25 20:00 07/20/25 21:44 07/21/25 09:04 Temperature 97.3 F 97.5 F Pulse Rate 82 85 Respiratory Rate 20 16 Blood Pressure 125/65 124/65 112/60 Pulse Oximetry 97 96 Oxygen Delivery Method Room Air Room Air BMI result Body Mass Index 33.6 Labs 07/14/25 00:59 07/14/25 00:39 Medications Medications Current Medications Acamprosate (Acamprosate Calcium 333 Mg Tablet.) [address] [facility] Last Admin: 07/21/25 09:02 Dose: 666 mg Acetaminophen (Acetaminophen 325 Mg Tablet) 650 mg PO Q6H PRN PRN Reason: Headache/Pain, Scale 1-10 Al Hydroxide/Mg Hydroxide (Magnesium Hydrox/Alum Hydrox 30 Ml Oral.Susp) 30 ml PO Q6H PRN PRN Reason: Heartburn/Nausea Bupropion HCl (Bupropion Hcl Xl 300 Mg Tab.Er.24h) [address] [facility] Last Admin: 07/21/25 09:02 Dose: 300 mg Clonidine HCl (Clonidine Hcl 0.2 Mg Tablet) 0.[address] [facility]; Protocol Last Admin: 07/21/25 09:05 Dose: 0.2 mg Gabapentin (Gabapentin 400 Mg Capsule) [address] [facility] Last Admin: 07/21/25 09:03 Dose: 400 mg Hydroxyzine HCl (Hydroxyzine Hcl 50 Mg Tablet) 100 mg PO TID PRN PRN Reason: Anxiety Last Admin: 07/20/25 12:15 Dose: 100 mg Magnesium Hydroxide (Milk Of Magnesia 30 Ml Oral.Susp) 30 ml PO DAILY PRN PRN Reason: Constipation Methadone HCl (Methadone Hcl 20 Mg/2 Ml Oral.Conc) [address] [facility] Last Admin: 07/21/25 07:56 Dose: 190 mg Nicotine (Nicotine 21 Mg Patch.Td24) 21 mg TRANSDERMA DAILY PRN PRN Reason: smoking cessation Last Admin: 07/19/25 09:42 Dose: 21 mg Nicotine Polacrilex (Nicotine Polacrilex Lozenge 4 Mg Lozenge) 4 mg BUCCAL Q2H PRN PRN Reason: Nicotine Cravings Last Admin: 07/21/25 09:33 Dose: 4 mg Quetiapine Fumarate (Quetiapine Fumarate 50 Mg Tablet) [address] [facility] Last Admin: 07/20/25 21:45 Dose: 50 mg Risperidone (Risperidone 1 Mg Tablet) 1 mg PO BID@0900,1400 [facility] Last Admin: 07/21/25 09:03 Dose: 1 mg Sertraline HCl (Sertraline Hcl 50 Mg Tablet) [address] [facility] Last Admin: 07/21/25 09:03 Dose: 150 mg Trazodone HCl (Trazodone Hcl 50 Mg Tablet) 50 mg PO BEDTIME MRX1 PRN PRN Reason: Insomnia Allergies Allergies Allergy/AdvReac Type Severity Reaction Status Date / Time No Known Allergies (No Known Allergy Verified 07/14/25 00:04 Allergies*) Assessment & Plan Assessment & Plan (1) MDD (major depressive disorder), recurrent severe, without psychosis: Status: Acute Code(s): F33.2 - Major depressive disorder, recurrent severe without psychotic features (2) Anxiety: Status: Acute Code(s): F41.9 - Anxiety disorder, unspecified (3) Cocaine use disorder: Status: Acute Code(s): F14.10 - Cocaine abuse, uncomplicated (4) Alcohol abuse: Status: Acute Code(s): F10.10 - Alcohol abuse, uncomplicated Plan HPI Patient is a 29-year-old male with history of MDD, anxiety, opioid and cocaine use disorder who presents for depression with SI in the face of relapse. Patient reports [facility], During which time his mood was good enough, but still pretty anxious with many worries about staying sober, what if he relapses, avoiding cravings...Pt says last week he was out playing basketball, saw a [employer] can on the ground which prompted him to want to drink and so he bought when; he got caught, but not kicked out. However since then he felt they were treating him differently...he felt they were shaming him... Which resulted in increased guilty, hopeless feelings. Patient then went out bought some stuff relapsed and this time when caught was discharged from the program this past Thursday. Feeling ashamed, He did not want to call his mom, so he was homeless in the streets, using cocaine/heroin daily. He started feeling very down, and started having intermittent SI with a vague plan to OD; instead however he thought about his son and knew he did not want to leave his son without a father (father/sister both by suicide). Patient reports he has ongoing anxiety that is ever present; sometimes becomes panic but only about once a month. Patient was drinking excessively for about 3 days Formulation/clinical reasoning: Patient has ongoing problematic anxiety; [facility] program increased Zoloft to 150mg to help w/ anxiety about a week ago. Discussed multiple options including BuSpar which did not work; patient agreed to trial of Risperdal to see if that can calm anxiety while he tries to pursue sobriety (reviewed risks/side effects of Risperdal which patient understood and agreed to) Hospital course: 07/15: Recent addition of Risperidone. Will continue current management and treatment plan. 07/16: continue current management and treatment plan. 07/17: continue current management and treatment plan. 07/18 Patient reports that overall his mood is better. Still feels quite anxious but thinks that Risperdal may have helped somewhat; patient agrees to increase dose. Discussed p.r.n. Ativan and he accepts its discontinuation due to associated risks. Patient shared about his shame of relapse. Manager Business Process explored patient's history it seems he was clearly groomed for substance abuse from a young age; editorial writer provided education on how the brain responds to addiction and why people relapse even when they do not want to. Patient will try to consider ways he can resist relapse in the future 07/19 Patient says that he overall is feeling better and that anxiety is lower with increased Risperdal dose. Discussed depression/anxiety again and referred to time when patient was sober for 8 much during which time his mood was good. Patient agrees that his anxiety/depression is mostly only situational and unlikely that further medication management will accomplish much. He thinks that current medication regimen is adequate for now and wants to continue. Patient is hopeful to get into a program. Patient is stable on current medication regimen Patient remains in good behavioral and impulse control and appropriate with peers and staff. 07/20: Moderate anxiety and depressive symptoms. Calm and cooperative. Continue current treatment regimen. 07/21: Reports feeling improved. Continue to monitor for regime changes. Plan: CV Q 15 minute checks continue to Risperdal 1 mg mg 0900/1400 to help tamped down anxiety (consider Trileptal) Continue Wellbutrin XL 300 mg Continue Zoloft 150 mg daily; increased about a week ago Continue methadone Continue other home meds Reviewed risks/side effects of antipsychotic medications and specifically risperidone Reason for continued inpatient stay Substantial Risk for: rapid decompensation Time Spent With Patient Time: Total time managing care of this patient today ____ minutes.
[2025-07-21 20:00] VITALS: BP 124/67; PULSE 81; RESP 18; TEMP 36.6; O2SAT 95
[2025-07-22] MEDS: methADONE HCl 20 MG/2 ML ORAL.CONC 190 MG PO (07:58)
[2025-07-22 08:00] VITALS: BP 105/55; PULSE 79; RESP 14; TEMP 36.4; O2SAT 96
[2025-07-22] MEDS: Nicotine 21 MG PATCH.TD24 TRANSDERMA (08:31)
[2025-07-22] MEDS: buPROPion HCl XL 300 MG TAB.ER.24H PO (08:31)
[2025-07-22] MEDS: Nicotine Polacrilex Lozenge 4 MG LOZENGE BUCCAL ×5 (08:31→21:09)
--- NOTE | 2025-07-22 08:31 | HO.PSYCHPN ---
Subjective Subjective Date of Service: 07/22/25 Reason For Visit: SI Interim History: Met With patient; discussed with team; reviewed chart says doing well; says anxiety is definitely better and would like to remain on currenty med regimen; hoping to get into [facility] soon Mental Status Exam Mental Status Exam Narrative: Pt is alert and oriented; behavior is cooperative, friendly and calm; patient is not in distress; dressed in casual attire with adequate hygiene and grooming; mood is described as good and affect congruent; eye contact appropriate; Speech is normal rate, volume and prosody and not pressured; no psychomotor agitation/retardation present; thought process is organized and goal directed; Thought content is on tx; otherwise pertinent to relevant topics and without any delusional content, paranoid ideations or grandiosity; denies any SI/HI. Denies AVH and there is no evidence of perceptual disturbance. Patients insight and judgment are intact. Diagnostics Vital Signs (24Hr): Vital Signs - 24 hr 07/21/25 09:04 07/21/25 20:00 07/22/25 08:00 Temperature 97.5 F 97.8 F 97.5 F Pulse Rate 85 81 79 Respiratory Rate 16 18 14 Blood Pressure 112/60 124/67 105/55 L Pulse Oximetry 96 95 96 Oxygen Delivery Method Room Air Room Air Room Air BMI result Body Mass Index 33.6 Labs 07/14/25 00:59 07/14/25 00:39 Medications Medications Current Medications Acamprosate (Acamprosate Calcium 333 Mg Tablet.) 666 mg PO TID [facility] Last Admin: 07/21/25 21:26 Dose: 666 mg Acetaminophen (Acetaminophen 325 Mg Tablet) 650 mg PO Q6H PRN PRN Reason: Headache/Pain, Scale 1-10 Al Hydroxide/Mg Hydroxide (Magnesium Hydrox/Alum Hydrox 30 Ml Oral.Susp) 30 ml PO Q6H PRN PRN Reason: Heartburn/Nausea Bupropion HCl (Bupropion Hcl Xl 300 Mg Tab.Er.24h) 300 mg PO DAILY [facility] Last Admin: 07/21/25 09:02 Dose: 300 mg Clonidine HCl (Clonidine Hcl 0.2 Mg Tablet) 0.2 mg PO BID [facility]; Protocol Last Admin: 07/21/25 21:26 Dose: 0.2 mg Gabapentin (Gabapentin 400 Mg Capsule) 400 mg PO TID [facility] Last Admin: 07/21/25 21:26 Dose: 400 mg Hydroxyzine HCl (Hydroxyzine Hcl 50 Mg Tablet) 100 mg PO TID PRN PRN Reason: Anxiety Last Admin: 07/21/25 12:49 Dose: 100 mg Magnesium Hydroxide (Milk Of Magnesia 30 Ml Oral.Susp) 30 ml PO DAILY PRN PRN Reason: Constipation Methadone HCl (Methadone Hcl 20 Mg/2 Ml Oral.Conc) 190 mg PO DAILY [facility] Last Admin: 07/22/25 07:58 Dose: 190 mg Nicotine (Nicotine 21 Mg Patch.Td24) 21 mg TRANSDERMA DAILY PRN PRN Reason: smoking cessation Last Admin: 07/19/25 09:42 Dose: 21 mg Nicotine Polacrilex (Nicotine Polacrilex Lozenge 4 Mg Lozenge) 4 mg BUCCAL Q2H PRN PRN Reason: Nicotine Cravings Last Admin: 07/21/25 23:27 Dose: 4 mg Quetiapine Fumarate (Quetiapine Fumarate 50 Mg Tablet) 50 mg PO BEDTIME [facility] Last Admin: 07/21/25 22:32 Dose: 50 mg Risperidone (Risperidone 1 Mg Tablet) 1 mg PO BID@0900,1400 [facility] Last Admin: 07/21/25 13:59 Dose: 1 mg Sertraline HCl (Sertraline Hcl 50 Mg Tablet) 150 mg PO DAILY [facility] Last Admin: 07/21/25 09:03 Dose: 150 mg Trazodone HCl (Trazodone Hcl 50 Mg Tablet) 50 mg PO BEDTIME MRX1 PRN PRN Reason: Insomnia Allergies Allergies Allergy/AdvReac Type Severity Reaction Status Date / Time No Known Allergies (No Known Allergy Verified 07/14/25 00:04 Allergies*) Assessment & Plan Assessment & Plan (1) MDD (major depressive disorder), recurrent severe, without psychosis: Status: Acute Code(s): F33.2 - Major depressive disorder, recurrent severe without psychotic features (2) Anxiety: Status: Acute Code(s): F41.9 - Anxiety disorder, unspecified (3) Cocaine use disorder: Status: Acute Code(s): F14.10 - Cocaine abuse, uncomplicated (4) Alcohol abuse: Status: Acute Code(s): F10.10 - Alcohol abuse, uncomplicated Plan HPI Patient is a 29-year-old male with history of MDD, anxiety, opioid and cocaine use disorder who presents for depression with SI in the face of relapse. Patient reports that he was at [facility] for about a [facility], During which time his mood was good enough, but still pretty anxious with many worries about staying sober, what if he relapses, avoiding cravings...Pt says last week he was out playing basketball, saw a [employer]isted [employer] can on the ground which prompted him to want to drink and so he bought when; he got caught, but not kicked out. However since then he felt they were treating him differently...he felt they were shaming him... Which resulted in increased guilty, hopeless feelings. Patient then went out bought some stuff relapsed and this time when caught was discharged from the program this past Thursday. Feeling ashamed, He did not want to call his mom, so he was homeless in the streets, using cocaine/heroin daily. He started feeling very down, and started having intermittent SI with a vague plan to OD; instead however he thought about his son and knew he did not want to leave his son without a father (father/sister both by suicide). Patient reports he has ongoing anxiety that is ever present; sometimes becomes panic but only about once a month. Patient was drinking excessively for about 3 days Formulation/clinical reasoning: Patient has ongoing problematic anxiety; it program increased Zoloft to 150mg to help w/ anxiety about a week ago. Discussed multiple options including BuSpar which did not work; patient agreed to trial of Risperdal to see if that can calm anxiety while he tries to pursue sobriety (reviewed risks/side effects of Risperdal which patient understood and agreed to) Hospital course: 07/15: Recent addition of Risperidone. Will continue current management and treatment plan. 07/16: continue current management and treatment plan. 07/17: continue current management and treatment plan. 07/18 Patient reports that overall his mood is better. Still feels quite anxious but thinks that Risperdal may have helped somewhat; patient agrees to increase dose. Discussed p.r.n. Ativan and he accepts its discontinuation due to associated risks. Patient shared about his shame of relapse. Physician Assistant Psychiatry explored patient's history it seems he was clearly groomed for substance abuse from a young age; communications writer provided education on how the brain responds to addiction and why people relapse even when they do not want to. Patient will try to consider ways he can resist relapse in the future 07/19 Patient says that he overall is feeling better and that anxiety is lower with increased Risperdal dose. Discussed depression/anxiety again and referred to time when patient was sober for 8 much during which time his mood was good. Patient agrees that his anxiety/depression is mostly only situational and unlikely that further medication management will accomplish much. He thinks that current medication regimen is adequate for now and wants to continue. Patient is hopeful to get into a program. Patient is stable on current medication regimen Patient remains in good behavioral and impulse control and appropriate with peers and staff. 07/20: Moderate anxiety and depressive symptoms. Calm and cooperative. Continue current treatment regimen. 07/22 says doing well; says anxiety is definitely better and would like to remain on currenty med regimen; hoping to get into [facility] soon Plan: CV Q 15 minute checks continue to Risperdal 1 mg mg 0900/1400 to help tamped down anxiety (consider Trileptal) Continue Wellbutrin XL 300 mg Continue Zoloft 150 mg daily; increased about a week ago Continue methadone Continue other home meds Reviewed risks/side effects of antipsychotic medications and specifically risperidone Patient educated on: diagnosis and medication risk/benefits Informed Consent: understands Reason for continued inpatient stay Substantial Risk for: stable for discharge Time Spent With Patient Time: Total time managing care of this patient today ____ minutes.
[2025-07-22 20:00] VITALS: BP 124/73; PULSE 88; RESP 16; TEMP 37.2; O2SAT 95
[2025-07-23] MEDS: Nicotine Polacrilex Lozenge 4 MG LOZENGE BUCCAL ×7 (07:00→23:04)
[2025-07-23 07:46] VITALS: BP 125/58; PULSE 88; TEMP 36.4; O2SAT 97
[2025-07-23] MEDS: methADONE HCl 20 MG/2 ML ORAL.CONC 190 MG PO (07:57)
[2025-07-23] MEDS: buPROPion HCl XL 300 MG TAB.ER.24H PO (08:00)
[2025-07-23] MEDS: Nicotine 21 MG PATCH.TD24 TRANSDERMA (08:00)
--- NOTE | 2025-07-23 09:53 | P.PNPSI_ITS ---
Subjective Subjective Date of Service: 07/23/25 Reason For Visit: SI Interim History: Met with patient; discussed with team Patient reports that he remains doing well, anxiety under control. Patient asks if gabapentin can be increased due to continued right leg pain Mental Status Exam Mental Status Exam Narrative: Pt is alert and oriented; behavior is cooperative, friendly and calm; patient is not in distress; dressed in casual attire with adequate hygiene and grooming; mood is described as good and affect congruent; eye contact appropriate; Speech is normal rate, volume and prosody and not pressured; no psychomotor agitation/retardation present; thought process is organized and goal directed; Thought content is on tx; otherwise pertinent to relevant topics and without any delusional content, paranoid ideations or grandiosity; denies any SI/HI. Denies AVH and there is no evidence of perceptual disturbance. Patients insight and judgment are intact. Diagnostics Vital Signs (24Hr): Vital Signs - 24 hr 07/22/25 20:00 07/23/25 07:46 Temperature 98.9 F 97.6 F Pulse Rate 88 88 Respiratory Rate 16 Blood Pressure 124/73 125/58 L Pulse Oximetry 95 97 Oxygen Delivery Method Room Air Room Air BMI result Body Mass Index 33.6 Labs 07/14/25 00:59 07/14/25 00:39 Medications Medications Current Medications Acamprosate (Acamprosate Calcium 333 Mg Tablet.) 666 mg PO TID [facility] Last Admin: 07/23/25 08:00 Dose: 666 mg Acetaminophen (Acetaminophen 325 Mg Tablet) 650 mg PO Q6H PRN PRN Reason: Headache/Pain, Scale 1-10 Al Hydroxide/Mg Hydroxide (Magnesium Hydrox/Alum Hydrox 30 Ml Oral.Susp) 30 ml PO Q6H PRN PRN Reason: Heartburn/Nausea Bupropion HCl (Bupropion Hcl Xl 300 Mg Tab.Er.24h) 300 mg PO DAILY [facility] Last Admin: 07/23/25 08:00 Dose: 300 mg Clonidine HCl (Clonidine Hcl 0.2 Mg Tablet) 0.2 mg PO BID [facility]; Protocol Last Admin: 07/23/25 08:00 Dose: 0.2 mg Gabapentin (Gabapentin 400 Mg Capsule) 400 mg PO TID [facility] Last Admin: 07/23/25 08:00 Dose: 400 mg Hydroxyzine HCl (Hydroxyzine Hcl 50 Mg Tablet) 100 mg PO TID PRN PRN Reason: Anxiety Last Admin: 07/22/25 21:07 Dose: 100 mg Magnesium Hydroxide (Milk Of Magnesia 30 Ml Oral.Susp) 30 ml PO DAILY PRN PRN Reason: Constipation Methadone HCl (Methadone Hcl 20 Mg/2 Ml Oral.Conc) 190 mg PO DAILY [facility] Last Admin: 07/23/25 07:57 Dose: 190 mg Nicotine (Nicotine 21 Mg Patch.Td24) 21 mg TRANSDERMA DAILY PRN PRN Reason: smoking cessation Last Admin: 07/23/25 08:00 Dose: 21 mg Nicotine Polacrilex (Nicotine Polacrilex Lozenge 4 Mg Lozenge) 4 mg BUCCAL Q2H PRN PRN Reason: Nicotine Cravings Last Admin: 07/23/25 09:05 Dose: 4 mg Quetiapine Fumarate (Quetiapine Fumarate 50 Mg Tablet) 50 mg PO BEDTIME [place] Last Admin: 07/22/25 21:08 Dose: 50 mg Risperidone (Risperidone 1 Mg Tablet) 1 mg PO BID@0900,1400 [facility] Last Admin: 07/23/25 08:00 Dose: 1 mg Sertraline HCl (Sertraline Hcl 50 Mg Tablet) 150 mg PO DAILY [facility] Last Admin: 07/23/25 08:00 Dose: 150 mg Trazodone HCl (Trazodone Hcl 50 Mg Tablet) 50 mg PO BEDTIME MRX1 PRN PRN Reason: Insomnia Allergies Allergies Allergy/AdvReac Type Severity Reaction Status Date / Time No Known Allergies (No Known Allergy Verified 07/14/25 00:04 Allergies*) Assessment & Plan Assessment & Plan (1) MDD (major depressive disorder), recurrent severe, without psychosis: Status: Acute Code(s): F33.2 - Major depressive disorder, recurrent severe without psychotic features (2) Anxiety: Status: Acute Code(s): F41.9 - Anxiety disorder, unspecified (3) Cocaine use disorder: Status: Acute Code(s): F14.10 - Cocaine abuse, uncomplicated (4) Alcohol abuse: Status: Acute Code(s): F10.10 - Alcohol abuse, uncomplicated Plan HPI Patient is a 29-year-old male with history of MDD, anxiety, opioid and cocaine use disorder who presents for depression with SI in the face of relapse. Patient reports that he was at the [facility] for about a month, During which time his mood was good enough, but still pretty anxious with many worries about staying sober, what if he relapses, avoiding cravings...Pt says last week he was out playing basketball, saw a [employer] can on the ground which prompted him to want to drink and so he bought when; he got caught, but not kicked out. However since then he felt they were treating him differently...he felt they were shaming him... Which resulted in increased guilty, hopeless feelings. Patient then went out bought some stuff relapsed and this time when caught was discharged from the program this past Thursday. Feeling ashamed, He did not want to call his mom, so he was homeless in the streets, using cocaine/heroin daily. He started feeling very down, and started having intermittent SI with a vague plan to OD; instead however he thought about his son and knew he did not want to leave his son without a father (father/sister both by suicide). Patient reports he has ongoing anxiety that is ever present; sometimes becomes panic but only about once a month. Patient was drinking excessively for about 3 days Formulation/clinical reasoning: Patient has ongoing problematic anxiety; [facility] increased Zoloft to 150mg to help w/ anxiety about a week ago. Discussed multiple options including BuSpar which did not work; patient agreed to trial of Risperdal to see if that can calm anxiety while he tries to pursue sobriety (reviewed risks/side effects of Risperdal which patient understood and agreed to) Hospital course: 07/15: Recent addition of Risperidone. Will continue current management and treatment plan. 07/16: continue current management and treatment plan. 07/17: continue current management and treatment plan. 07/18 Patient reports that overall his mood is better. Still feels quite anxious but thinks that Risperdal may have helped somewhat; patient agrees to increase dose. Discussed p.r.n. Ativan and he accepts its discontinuation due to associated risks. Patient shared about his shame of relapse. Port Patrol Officer explored patient's history it seems he was clearly groomed for substance abuse from a young age; residential mortgage underwriter provided education on how the brain responds to addiction and why people relapse even when they do not want to. Patient will try to consider ways he can resist relapse in the future 07/19 Patient says that he overall is feeling better and that anxiety is lower with increased Risperdal dose. Discussed depression/anxiety again and referred to time when patient was sober for 8 much during which time his mood was good. Patient agrees that his anxiety/depression is mostly only situational and unlikely that further medication management will accomplish much. He thinks that current medication regimen is adequate for now and wants to continue. Patient is hopeful to get into a program. Patient is stable on current medication regimen Patient remains in good behavioral and impulse control and appropriate with peers and staff. 07/20: Moderate anxiety and depressive symptoms. Calm and cooperative. Continue current treatment regimen. 07/22 says doing well; says anxiety is definitely better and would like to remain on currenty med regimen; hoping to get into [facility] soon 07/23 Patient reports that he remains doing well, anxiety under control. Patient asks if gabapentin can be increased due to continued right leg pain Plan: CV Q 15 minute checks continue to Risperdal 1 mg mg 0900/1400 to help tamped down anxiety (consider Trileptal) Continue Wellbutrin XL 300 mg Continue Zoloft 150 mg daily; increased about a week ago Increase gabapentin to 600 mg t.i.d. (up from 400mg) Continue methadone Continue other home meds Reviewed risks/side effects of antipsychotic medications and specifically risperidone Patient educated on: diagnosis and medication risk/benefits Informed Consent: understands Reason for continued inpatient stay Substantial Risk for: stable for discharge Time Spent With Patient Time: Total time managing care of this patient today ____ minutes.
[2025-07-23 20:00] VITALS: BP 129/86; PULSE 95; RESP 15; TEMP 37; O2SAT 95
[2025-07-24] MEDS: methADONE HCl 20 MG/2 ML ORAL.CONC 190 MG PO (07:51)
[2025-07-24 08:13] VITALS: BP 110/57; PULSE 74; TEMP 36.4; O2SAT 96
[2025-07-24] MEDS: buPROPion HCl XL 300 MG TAB.ER.24H PO (08:49)
[2025-07-24] MEDS: Nicotine Polacrilex Lozenge 4 MG LOZENGE BUCCAL (08:53)
--- NOTE | 2025-07-24 11:37 | P.DS_ITS ---
DS: Providers Provider Date of Service: 07/24/25 Date of admission: 07/14/25 11:49 Date of discharge: 07/24/25 Primary care physician: CRISTINA Yi Attending physician on admission: Alejandro Perez Consults: 07/14/25 14:19 Addiction Medicine Provider Routine Consulting Provider: Addiction Covering Reason for consultation: opioid use disorder Consult to Comprehensive [facility] Routine Consulting Provider: [facility] Attending physician on discharge: Alejandro Perez DS: Diagnosis Discharge Diagnosis (1) MDD (major depressive disorder), recurrent severe, without psychosis: Status: Acute (2) Anxiety: Status: Acute (3) Cocaine use disorder: Status: Acute (4) Alcohol abuse: Status: Acute DS: Medications Discharge Medications Home Medications: Home Medications ?Medication ?Instructions ?Recorded ?Confirmed methadone 10 mg/mL oral 190 mg PO DAILY 01/10/25 concentrate (Methadose) Previous Rx's ?Medication ?Instructions ?Recorded acamprosate 333 mg tablet,delayed 666 mg (2 x 333 mg) PO TID 30 days 07/24/25 release #180 tabs bupropion HCl 300 mg 24 hr tablet, 300 mg PO QAM 30 da ys #30 tabs 07/24/25 extended release clonidine HCl 0.2 mg tablet 0.2 mg PO BID 30 days #60 tabs 07/24/25 gabapentin 600 mg tablet 600 mg PO TID 15 days #45 ta bs 07/24/25 hydroxyzine pamoate 100 mg capsule 100 mg PO TID PRN m ild anxiety 30 07/24/25 days #60 caps nicotine (polacrilex) 4 mg buccal 4 mg PO Q2H PRN Omid omero Cravings 07/24/25 lozenge 30 days #81 ea nicotine 21 mg/24 hr daily 21 mg transdermal DAILY PRN 07/24/25 transdermal patch smoking cessation 28 days #2 8 ea quetiapine 50 mg tablet 50 mg PO BEDTIME 30 days #30 tabs 07/24/25 risperidone 1 mg tablet 1 mg PO BID@0900,1400 30 day s #60 07/24/25 tabs sertraline 100 mg tablet 150 mg (1.5 x 100 mg) PO ABDULKADIR LY 30 07/24/25 days #45 tabs Mental Status Exam Mental Status Exam Narrative: Pt is alert and oriented; behavior is cooperative, friendly and calm; patient is not in distress; dressed in casual attire with adequate hygiene and grooming; mood is described as good and affect congruent; eye contact appropriate; Speech is normal rate, volume and prosody and not pressured; no psychomotor agitation/retardation present; thought process is organized and goal directed; Thought content is on tx; otherwise pertinent to relevant topics and without any delusional content, paranoid ideations or grandiosity; denies any SI/HI. Denies AVH and there is no evidence of perceptual disturbance. Patients insight and judgment are intact. DS: Summary Hospital Course Hospital Course: HPI Patient is a 29-year-old male with history of MDD, anxiety, opioid and cocaine use disorder who presents for depression with SI in the face of relapse. Patient reports that he was at the [facility] program for about a month, During which time his mood was good enough, but still pretty anxious with many worries about staying sober, what if he relapses, avoiding cravings...Pt says last week he was out playing basketball, saw a [employer] can on the ground which prompted him to want to drink and so he bought when; he got caught, but not kicked out. However since then he felt they were treating him differently...he felt they were shaming him... Which resulted in increased guilty, hopeless feelings. Patient then went out bought some stuff relapsed and this time when caught was discharged from the program this past Thursday. Feeling ashamed, He did not want to call his mom, so he was homeless in the streets, using cocaine/heroin daily. He started feeling very down, and started having intermittent SI with a vague plan to OD; instead however he thought about his son and knew he did not want to leave his son without a father (father/sister both by suicide). Patient reports he has ongoing anxiety that is ever present; sometimes becomes panic but only about once a month. Nevaeh ent was drinking excessively for about 3 days Hospital course: Patient has ongoing problematic anxiety; [facility] program increased Zoloft to 150mg to help w/ anxiety about a week ago. Discussed multiple options including BuSpar which did not work; patient agreed to trial of Risperdal to see if that can calm anxiety while he tries to pursue sobriety (reviewed risks/side effects of Risperdal which patient understood and agreed to). Patient explains that when he was sober, mood was good, and anxiety not too bad and he agrees that current depression and anxiety are situational. He continued with MAT Acamproset and Methadone. SI fully resolved on admission. 07/18 Patient reports that overall his mood is better. Still feels quite anxious but thinks that Risperdal may have helped somewhat; patient agrees to increase dose. Discussed p.r.n. Ativan and he accepts its discontinuation due to associated risks. Patient shared about his shame of relapse. Arabic Linguist explored patient's history it seems he was clearly groomed for substance abuse from a young age; group underwriter provided education on how the brain responds to addiction and why people relapse even when they do not want to. Patient will try to consider ways he can resist relapse in the future 07/19 Patient says that he overall is feeling better and that anxiety is lower with increased Risperdal dose. Discussed depression/anxiety again and referred to time when patient was sober for 8 much during which time his mood was good. Patient agrees that his anxiety/depression is mostly only situational and unlikely that further medication management will accomplish much. He thinks that current medication regimen is adequate for now and wants to continue. Patient is hopeful to get into a program. Over subsequent days, anxiety was significantly reduced and patient's mood significantly improved. He felt good about current medication regimen which he was tolerating well. Patient remained in good behavioral and impulse control throughout his time in the unit and was appropriate with peers and staff though not much engaged in groups. Patient eating and sleeping well. Initially patient asked for help getting into a program and several referrals were made and patient was accepted into to programs; however when the time came to discharge to a program, he decided he did not want to go but instead was going to discharge and go back to his mother's house. Patient understands the risks of relapse but felt the program was too far away and decided he would just work out his sobriety on his own and did not want other referrals for help. He continued with MAT. Patient of course remains vulnerable for relapse and decompensation; however this is a chronic struggle for him, one of which he is well aware and will not resolve with longer inpatient hospitalization or medication management. Patient is at baseline. He is not in imminent risk for harm to self or others and appropriate to return to the community for treatment. Patient's request for discharge honored. Medication Started on Risperdal 1 mg mg 00/1400 (intended to be temporary to get him through the 1st month or 2 of sobriety) Continued Wellbutrin XL 300 mg Continued Zoloft 150 mg daily; increased about a week ago Increased gabapentin to 600 mg t.i.d. (up from 400mg) Continued Acamproset 666 tid Status at Discharge Functional status at discharge: independent ambulation Overall status at discharge: patient is back to baseline Time Spent with Patient Time attestation: Total time managing care of this patient today _40___ minutes. Time spent: Greater than 30 minutes Specific discharge activities: Met with patient; discussed with team; charting; prescriptions Discharge Plan Discharge Anticipated Discharge Date/Time: 07/24/25 11:37 Patient Disposition: Home, Self-Care Discharge Diagnosis: MDD, recurrent, severe, w/out psychosis in full remission [facility] [Other] - 07/25/25 2:00 pm Referral Note: *Initial Intake Appointment with therapist, Ina Brooks ONCE YOU COMPLETE THIS APPOINTMENT, YOU QUALIFTY FOR IMMEDIATE MEDICATION MANAGEMENT SERVICES [facility] [Other] - 1 Week Referral Note: *Please follow up with this [facility] referral. [facility] [Other] - 1 Week Referral Note: *Please follow up with this referral Dylon Li FNP [Primary Care Provider, Internal Medicine] - 1 Week Discharge Medications: New nicotine 21 mg/24 hr Patch 24 Hour 21 mg transdermal DAILY PRN (Reason: smoking cessation) 28 Days Qty: 28 0RF Rx Instructions: remove at bedtime risperidone 1 mg Tablet 1 mg PO BID@0900,1400 30 Days Qty: 60 0RF Continued methadone [Methadose] 10 mg/mL concentrate 190 mg PO DAILY Rx Instructions: Partial Fill upon patient request. sertraline 100 mg tablet 150 mg PO DAILY 30 Days Qty: 45 0RF clonidine HCl 0.2 mg tablet 0.2 mg PO BID 30 Days Qty: 60 0RF nicotine (polacrilex) 4 mg lozenge 4 mg PO Q2H PRN (Reason: Nicotine Cravings) 30 Days Qty: 81 0RF bupropion HCl 300 mg tablet extended release 24 hr 300 mg PO QAM 30 Days Qty: 30 0RF acamprosate 333 mg tablet,delayed release (DR/EC) 666 mg PO TID 30 Days Qty: 180 0RF quetiapine 50 mg tablet 50 mg PO BEDTIME 30 Days Qty: 30 0RF Changed hydroxyzine pamoate 100 mg capsule 100 mg PO TID PRN (Reason: mild anxiety) 30 Days Qty: 60 0RF gabapentin 600 mg tablet 600 mg PO TID 15 Days Qty: 45 1RF Discharge Orders: Discharge Order (Routine); Ordered 07/24/25 Ordered By: Alejandro Perez Diet: Regular diet Activity on Discharge: As tolerated Stand Alone Forms: Patient Portal Discharge page, Community Support Print Language: Kazakh Care Plan Goals: Maintain mood and safe behaviors Take medications as prescribed Continue to pursue sobriety Practice coping skills Continue with outpatient providers and reach out to them as needed Health Concerns: Mood stability and behaviors Sobriety Neuropathic pain Plan of Treatment: Follow up with your PCP, psychiatric provider and other outpatient providers regarding above concerns Take medications as prescribed Assessment: Risk assessment at time of discharge:? Patient was interviewed prior to discharge and found to be fully oriented and without any SI or HI. Patient has improved insight and judgment and wants to continue treatment. Patient is not in imminent risk of harm to self or others and has a safety plan that includes presenting to the closest ER or calling 911 if feeling unsafe.? Patient has been observed closely by nursing and unit staff throughout admission; patient has not engaged in any behaviors that suggest dangerousness to self or others and has demonstrated appropriate behaviors and impulse control
== END 2025-07-24 12:00 | disposition home or self-care (01) | DRG 751 ==
LOC: HO.ED 07-14 02:34 → HO.PM5 07-14 13:26
PROVIDERS: Admitting Provider Psychiatry & Neurology Psychiatry; Emergency Provider Emergency Medicine; PCP Nurse Practitioner Adult Health; Visit Provider Psychiatry & Neurology Psychiatry
DX: F33.2 Major depressive disorder, recurrent severe without psychotic features (principal); Z59.02 Unsheltered homelessness; R45.851 Suicidal ideations; F11.20 Opioid dependence, uncomplicated; F17.210 Nicotine dependence, cigarettes, uncomplicated; Z71.6 Tobacco abuse counseling; F41.9 Anxiety disorder, unspecified; F14.10 Cocaine abuse, uncomplicated; F10.10 Alcohol abuse, uncomplicated; Z79.899 Other long term (current) drug therapy
CPT/HCPCS: 36415; 80053; 80143; 80179; 80307; 81001; 85025; 93005; 99285; S9485

== ENCOUNTER → 2025-07-14 08:05 | Outpatient (BNV) | payer MEDICAID, SELFPAY | PROVIDERS: Admitting Provider Psychiatry & Neurology Psychiatry; Emergency Provider Emergency Medicine; PCP Nurse Practitioner Adult Health; Visit Provider Internal Medicine | DX: R94.31 Abnormal electrocardiogram [ECG] [EKG] (principal) | CPT/HCPCS: 93010 ==

== ENCOUNTER → 2025-07-14 11:49 | Outpatient (BNV) | payer OTHER, SELFPAY | PROVIDERS: Admitting Provider Psychiatry & Neurology Psychiatry; Emergency Provider Emergency Medicine; PCP Nurse Practitioner Adult Health; Visit Provider Psychiatry & Neurology Psychiatry | DX: F33.2 Major depressive disorder, recurrent severe without psychotic features (principal); F14.10 Cocaine abuse, uncomplicated; F10.10 Alcohol abuse, uncomplicated; F41.9 Anxiety disorder, unspecified | CPT/HCPCS: 90792; 99231; 99232 ==

== ENCOUNTER 2025-07-27 15:08 | Inpatient (IN) | payer OTHER, SELFPAY ==
[2025-07-27 15:24] VITALS: BP 146/74; PULSE 92; RESP 20; TEMP 36.5; O2SAT 96
[2025-07-27 15:27] VITALS: BMI 33.3
--- NOTE | 2025-07-27 16:50 | HE.PHANOTE ---
METHADONE DOSE CONFIRMATION PATIENT TAKES 190 MG DAILY. LAST DOSE WAS IN [facility] ED ON 07/26 @ 0820
--- NOTE | 2025-07-27 17:37 | PC.ADMIT ---
This is one of multiple admissions for this 29 y.o. male to [facility]. Referred by [facility] ED with Dx: Other Depressive Disorder. Nurse to nurse done with [facility] ED prior to admission. Last discharged from this unit 07/24/25. States he was unable to live with mother after discharge as he had previously stolen jewelry from his brother, causing him to be homeless. Since discharge he was caught stealing sneakers from [employer] and was almost caught doing drugs in bathroom at [employer]. States he gave sneakers back after being caught, but mall staff called police. States he ran through thick wooded area from police causing scratches on bilateral lower arms; noted during skin integrity check/exchange underwriting consultant upon admission. Substance issues: Tox screen positive for Fentanyl, Cocaine, Methadone; pt reports daily use of all with Methadone received at [facility]. Last received Methadone 190mg po at [facility] Ed today, 07/27/25 at 0953. Last received Methadone at [facility] 07/26/25 0820. Arrived on unit at 1315 and placed on 15min safety checks. Reports experiencing seizure 6 months ago at [facility] from ETOH withdrawal. Last ETOH/Cocaine/Fentanyl use 07/26/25 1400. Reported not feeling well to Dr Perez, scheduled Ativan ordered. Precipitating events to admission: Presented to [facility] ED with Hx; polysubstance abuse, anxiety and depression reporting SI, with plan to OD on Fentanyl. Currently denies SI/HI, AH/VH. Signed CV after meeting with Dr Perez. States he did not follow-up with scheduled therapist appointment which was part of discharge plan from [facility].
[2025-07-27] MEDS: buPROPion HCl XL 300 MG TAB.ER.24H PO (18:42)
[2025-07-27 19:59] VITALS: BP 135/79; PULSE 102; RESP 16; TEMP 37.1; O2SAT 96
[2025-07-27] MEDS: Nicotine Polacrilex Lozenge 4 MG LOZENGE BUCCAL ×2 (20:13→22:16)
[2025-07-28] MEDS: Nicotine Polacrilex Lozenge 4 MG LOZENGE BUCCAL ×6 (00:23→21:22)
[2025-07-28] MEDS: methADONE HCl 20 MG/2 ML ORAL.CONC 190 MG PO (07:54)
[2025-07-28 08:18] VITALS: BP 118/64; PULSE 83; RESP 16; TEMP 36.3; O2SAT 96
[2025-07-28] MEDS: buPROPion HCl XL 300 MG TAB.ER.24H PO (08:20)
--- NOTE | 2025-07-28 09:06 | HO.PM.IMCN ---
History of Present Illness Data of Consult Service Date: 07/28/25 Primary Care Provider: Troy Dunham MD HPI Reason for consult: Medical management 29-year-old male with a past medical history of polysubstance abuse on methadone, EtOH abuse and depression presented to [facility] with suicidal ideations with a plan to overdose on fentanyl. Patient was recently asked to leave from a [facility] house and has had increased suicidal ideations. Review of outside records reveal a CBC within normal limits, CMP within normal limits, tox screen positive for cocaine, fentanyl and methadone. EKG demonstrated normal sinus rhythm with QTC 452. On exam he denies any medical concerns, denies any shortness of breath, dizziness lightheadedness or any other concerning symptoms. He denies any constipation, abdominal pain, reports that his appetite is within normal limits. He is ambulating with a steady gait on the unit Review of Systems Review of Systems: Denies any shortness of breath, chest pain, dizziness, lightheadedness, abdominal pain or discomfort, nausea vomiting or diarrhea PMFSH Medical History (Updated 07/14/25 @ 17:52 by Alejandro Perez MD) Alcohol abuse Cocaine use disorder MDD (major depressive disorder), recurrent severe, without psychosis Hepatitis C Anxiety Foreign body (FB) in soft tissue Smoker Hx of substance abuse Family History Father No problems noted. Mother No problems noted. Surgical History No significant past surgical history Social History Household Members: None Housing: Homeless Do you presently have visiting nurse or other home services: No Alcohol intake: current Alcohol intake frequency: a few times a week Alcohol type: hard liquor and other Patient Tobacco Use Status: Current everyday Tobacco user Tobacco use type: Cigarette and Smokeless Tobacco Cigarette Packs Per Day: 0.5 Cigarettes Per Day: 3 Years Smoked: 10 years Smoked in Last 30 Days: Yes e-Cigarette/Vaping Use: Currently Using Frequency of e-Cigarette/Vaping Use: 10x hr when vapes Patient Interested in Nicotine Replacement: Yes (patch and lozenge) Second Hand Smoke Exposure: Yes (people smoking around him) Substance Use Type: Other Currently Displaying Signs/Symptoms of Drug Intoxication Withdrawal: No Have you been hit, kicked, punched, or otherwise hurt by someone within the past year? If so, by whom?: No Do you feel safe in your current relationship?: No Current Relationship Is there a partner from a previous relationship who is making you feel unsafe now?: No Are you made to feel afraid or neglected: No Advance Directives: No Advance Directives Information Provided: Yes Do you have thoughts of harming others: None Do you have a plan to hurt others: No Plan Recently lost weight without trying: No Eating poorly because of decreased appetite: No Nutrition Risks: No Nutritional Risk Poor oral hygiene: No service: No Current occupational status: unemployed Sexual orientation: Straight/Heterosexual Cognitive needs: No Hearing needs: No Vision needs: No Meds Allergies Allergy/AdvReac Type Severity Reaction Status Date / Time No Known Allergies (No Known Allergy Verified 07/14/25 00:04 Allergies*) Active Medications: Current Medications Acamprosate (Acamprosate Calcium 333 Mg Tablet.) 666 mg PO TID [facility] Last Admin: 07/28/25 08:21 Dose: 666 mg Acetaminophen (Acetaminophen 325 Mg Tablet) 650 mg PO Q6H PRN PRN Reason: Headache/Pain, Scale 1-10 Al Hydroxide/Mg Hydroxide (Magnesium Hydrox/Alum Hydrox 30 Ml Oral.Susp) 30 ml PO Q6H PRN PRN Reason: Heartburn/Nausea Bupropion HCl (Bupropion Hcl Xl 300 Mg Tab.Er.24h) 300 mg PO DAILY [facility] Last Admin: 07/28/25 08:20 Dose: 300 mg Clonidine HCl (Clonidine Hcl 0.2 Mg Tablet) 0.2 mg PO BID [facility]; Protocol Last Admin: 07/28/25 08:20 Dose: 0.2 mg Gabapentin (Gabapentin 600 Mg Tablet) 600 mg PO TID [facility] Last Admin: 07/28/25 08:20 Dose: 600 mg Hydroxyzine HCl (Hydroxyzine Hcl 50 Mg Tablet) 100 mg PO TID PRN PRN Reason: mild anxiety Last Admin: 07/27/25 21:22 Dose: 100 mg Lorazepam (Lorazepam 1 Mg Tablet) 1 mg PO TID [facility] Stop: 07/28/25 23:00 Last Admin: 07/28/25 08:19 Dose: 1 mg Magnesium Hydroxide (Milk Of Magnesia 30 Ml Oral.Susp) 30 ml PO DAILY PRN PRN Reason: Constipation Methadone HCl (Methadone Hcl 20 Mg/2 Ml Oral.Conc) 190 mg PO DAILY [facility] Last Admin: 07/28/25 07:54 Dose: 190 mg Nicotine (Nicotine 21 Mg Patch.Td24) 21 mg TRANSDERMA DAILY PRN PRN Reason: smoking cessation Nicotine Polacrilex (Nicotine Polacrilex Lozenge 4 Mg Lozenge) 4 mg BUCCAL Q2H PRN PRN Reason: Nicotine Cravings Last Admin: 07/28/25 00:23 Dose: 4 mg Olanzapine (Olanzapine 5 Mg Tablet) 5 mg PO TID PRN PRN Reason: agitation Last Admin: 07/28/25 00:24 Dose: 5 mg Quetiapine Fumarate (Quetiapine Fumarate 50 Mg Tablet) 50 mg PO BEDTIME [facility] Last Admin: 07/27/25 21:01 Dose: 50 mg Risperidone (Risperidone 1 Mg Tablet) 1 mg PO BID@0900,1400 [facility] Last Admin: 07/28/25 08:20 Dose: 1 mg Sertraline HCl (Sertraline Hcl 50 Mg Tablet) 150 mg PO DAILY [facility] Last Admin: 07/28/25 08:20 Dose: 150 mg Trazodone HCl (Trazodone Hcl 50 Mg Tablet) 50 mg PO BEDTIME MRX1 PRN PRN Reason: Insomnia Home Medications ?Medication ?Instructions ?Recorded ?Confirmed ?Last Taken ?Type methadone 10 mg/mL oral 190 mg PO DAILY 01/10/25 07/27/25 07/13/25 07:43 History concentrate (Methadose) Physical Exam Vital Signs and Narrative: Vital Signs: Last Vital Signs Temp 97.4 F 07/28/25 08:18 Pulse 83 07/28/25 08:18 Resp 16 07/28/25 08:18 BP 118/64 07/28/25 08:18 Pulse Ox 96 07/28/25 08:18 O2 Del Method Room Air 07/28/25 08:18 BMI result Body Mass Index 33.3 CONST: Alert and oriented, in NAD. Well nourished HEENT: Normocephalic, atraumatic, MMM, Eyes clear, Neck supple RESP: Lungs clear, RRR even and regular HEART:,RRR, S1, S2. No edema GI:Abdomen Soft NT, ND. + BS times four :Deferred SKIN: Warm dry and intact, no visible lesions or rashes NEURO:CN II-XII Intact bilaterally, Sensation intact. Speech clear PSYCH: Normal affect Assessment and Plan (1) MDD (major depressive disorder), recurrent severe, without psychosis: Status: Acute Plan 29-year-old male with past medical history of polysubstance use disorder, depression, presented to [facility] with suicide ideation. Now admitted to inpatient psych for treatment. Major depressive disorder/polysubstance disorder on methadone/suicidal ideation Treatment plan per psychiatric team Thank you for allowing me to participate in the care of your patient, please notify medical provider with any health concerns or changes. Will sign off
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
--- NOTE | 2025-07-28 11:02 | MHC.RECOVRN ---
TW checked in with pt to offer support related to polysubstance use. On approach pt was standing in the hallway, with eyes closed. He opened his eyes to his name being called and agreed to speak with TW. When asked how he was feeling he reports, I'm ok . He reports drinking 8-10 beers daily since his discharge 07/24/25, He denies w/d symptoms other than a little headache . Pt would frequently close his eyes during conversation and when asked would state, it's ok, I'm good . Tw explained she would return later this afternoon and continue assessment and interview. Pt was in agreement. TW available for further support and resources as needed.
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
[2025-07-28 20:00] VITALS: BP 131/66; PULSE 106; RESP 16; TEMP 36.7; O2SAT 96
[2025-07-28] MEDS: Nystatin Oral Susp 500,000 UNIT/5 ML ORAL.SUSP 100000 UNIT BUCCAL (21:18)
[2025-07-29] MEDS: Nicotine Polacrilex Lozenge 4 MG LOZENGE BUCCAL ×7 (03:41→23:00)
[2025-07-29] MEDS: methADONE HCl 20 MG/2 ML ORAL.CONC 190 MG PO (08:06)
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
[2025-07-29 08:54] VITALS: BP 116/63; PULSE 82; RESP 20; TEMP 36.4; O2SAT 96
[2025-07-29] MEDS: Nystatin Oral Susp 500,000 UNIT/5 ML ORAL.SUSP 100000 UNIT BUCCAL (08:58)
[2025-07-29] MEDS: buPROPion HCl XL 300 MG TAB.ER.24H PO (09:01)
--- NOTE | 2025-07-29 12:56 | P.PNPSI_ITS ---
Subjective Subjective Date of Service: 07/29/25 Reason For Visit: decompensation Subjective Notes: Conditional Voluntary Healthcare Proxy: No Guardianship: No Medical Problems Affecting Mental Status: No Interim History: Patient seen in RT office. Presents a bit drowsy. Reports mild anxiety. He states that he came back to the hospital because he was out homeless on the streets and couldn't get into a program. He stayed in a hotel the first night then came back. He was with the wrong people doing the wrong things. Last SI was earlier today to overdose on fentanyl. No intent to harm self here. He states that he can ask for help if needed. Denies HI/AVH. No evidence of hallucinosis. He appears sedated, nodding off during encounter. Case discussed at length with nursing. Concern raised for overendorsement of subjective symptoms related to alcohol withdrawal. Medication Compliance: Yes Side effects from medications: No Attending Groups: Yes Review of Systems Acute medical concerns: No Medical Review of Systems: unchanged Review of Systems Review of Systems Yes all other systems are reviewed and are negative Constitutional: Denies body ache(s), Reports daytime sleepiness, Reports difficulty sleeping, Denies excessive sweating, Reports fatigue and Denies night sweats Eyes: Reports no additional eye complaints Reports system reviewed and no additional complaints, except as documented Cardiovascular: Reports no additional cardiovascular complaints Respiratory: Reports no additional respiratory complaints Gastrointestinal: Reports no additional gastrointestinal complaints Genitourinary: Reports no additional male genitourinary complaints Musculoskeletal: Reports no additional musculoskeletal complaints, Denies abnormal gait and Denies numbness Skin/Breast: Reports system reviewed and no additional complaints, except as docu Denies Neuro-related abnormal movements, Denies abnormal gait, Denies numbness, Denies convulsions, Denies seizure-like activity and Denies tremor(s) Psychiatric: Denies difficulty concentrating, Denies auditory hallucinations, Denies panic attacks, Denies visual hallucinations, Denies tactile hallucinations and Denies homicidal ideation Endocrine: Reports no additional endocrine complaints, Denies excessive sweating and Reports fatigue Hematologic/Lymphatic: Reports no additional hematologic/lymphatic complaints Allergic/Immunologic: Reports no additional allergic/immunologic complaints Mental Status Exam Mental Status Exam Patient Appearance: Fatigued and Disheveled Patient Orientation: Person, Place, Time and Situation Level of Consciousness: Awake and Drowsy Patient Behavior: Appropriate Mood Description: Calm ( so-so ) Affect Description: Calm and Constricted Patient Cognition Impaired: No Ability to Follow Directions: Excellent Speech Pattern: Clear Memory Description: Intact Hallucinations: None Delusions: Not Present Thought Process: Goal Oriented Depressive Symptoms: Difficulty Sleeping Judgement and Insight: mild impairment Diagnostics Vital Signs (24Hr): Vital Signs - 24 hr 07/28/25 20:00 07/29/25 08:54 Temperature 98.1 F 97.6 F Pulse Rate 106 H 82 Respiratory Rate 16 20 Blood Pressure 131/66 116/63 Pulse Oximetry 96 96 Oxygen Delivery Method Room Air Room Air BMI result Body Mass Index 33.3 Medications Medications Current Medications Acamprosate (Acamprosate Calcium 333 Mg Tablet.Dr) 666 mg PO TID [facility] Last Admin: 07/29/25 09:00 Dose: 666 mg Acetaminophen (Acetaminophen 325 Mg Tablet) 650 mg PO Q6H PRN PRN Reason: Headache/Pain, Scale 1-10 Last Admin: 07/28/25 22:44 Dose: 650 mg Al Hydroxide/Mg Hydroxide (Magnesium Hydrox/Alum Hydrox 30 Ml Oral.Susp) 30 ml PO Q6H PRN PRN Reason: Heartburn/Nausea Bupropion HCl (Bupropion Hcl Xl 300 Mg Tab.Er.24h) 300 mg PO DAILY [facility] Last Admin: 07/29/25 09:01 Dose: 300 mg Clonidine HCl (Clonidine Hcl 0.2 Mg Tablet) 0.2 mg PO BID [facility]; Protocol Last Admin: 07/29/25 09:00 Dose: 0.2 mg Gabapentin (Gabapentin 600 Mg Tablet) 600 mg PO TID [facility] Last Admin: 07/29/25 09:01 Dose: 600 mg Hydroxyzine HCl (Hydroxyzine Hcl 50 Mg Tablet) 100 mg PO TID PRN PRN Reason: mild anxiety Last Admin: 07/29/25 03:41 Dose: 100 mg Magnesium Hydroxide (Milk Of Magnesia 30 Ml Oral.Susp) 30 ml PO DAILY PRN PRN Reason: Constipation Methadone HCl (Methadone Hcl 20 Mg/2 Ml Oral.Conc) 190 mg PO DAILY [facility] Last Admin: 07/29/25 08:06 Dose: 190 mg Nicotine (Nicotine 21 Mg Patch.Td24) 21 mg TRANSDERMA DAILY PRN PRN Reason: smoking cessation Nicotine Polacrilex (Nicotine Polacrilex Lozenge 4 Mg Lozenge) 4 mg BUCCAL Q2H PRN PRN Reason: Nicotine Cravings Last Admin: 07/29/25 09:02 Dose: 4 mg Olanzapine (Olanzapine 5 Mg Tablet) 5 mg PO TID PRN PRN Reason: agitation Last Admin: 07/29/25 03:42 Dose: 5 mg Quetiapine Fumarate (Quetiapine Fumarate 50 Mg Tablet) 50 mg PO BEDTIME [facility] Last Admin: 07/28/25 21:17 Dose: 50 mg Risperidone (Risperidone 1 Mg Tablet) 1 mg PO BID@0900,1400 [facility] Last Admin: 07/29/25 09:01 Dose: 1 mg Sertraline HCl (Sertraline Hcl 50 Mg Tablet) 150 mg PO DAILY [facility] Last Admin: 07/29/25 08:59 Dose: 150 mg Trazodone HCl (Trazodone Hcl 50 Mg Tablet) 50 mg PO BEDTIME MRX1 PRN PRN Reason: Insomnia Allergies Allergies Allergy/AdvReac Type Severity Reaction Status Date / Time No Known Allergies (No Known Allergy Verified 07/14/25 00:04 Allergies*) Assessment & Plan Assessment & Plan (1) MDD (major depressive disorder), recurrent severe, without psychosis: Status: Acute Code(s): F33.2 - Major depressive disorder, recurrent severe without psychotic features (2) Substance use disorder: Status: Acute Code(s): F19.90 - Other psychoactive substance use, unspecified, uncomplicated (3) Alcohol abuse: Status: Acute Code(s): F10.10 - Alcohol abuse, uncomplicated Plan 29 yo male, hx of alcohol, cocaine, opioid use disorders, anxiety, depression, recent discharge from [facility] [place] in transfer from [facility] where he presented with SI with a plan to overdose on Fentanyl. Pt reports being kicked out of a rehab program, attempted to return to him mother's home and was declined when he asked to stay there. He reports going to the street, using, trying to stay [place] the [place], however, has several scratches from bushes and reports very poor sleep. Pt was falling asleep while we were meeting. We discussed that he was reluctant last admit regarding treatment. I will go to CSS at [facility] if you can help me get in. Pt continued to discuss his sleep, which he reports has been poor since his sister , Jul 2024. He continued to talk of grief and cried-this anniversary being difficult and full of emotion for him. Reports daily alcohol and heroin use. 07/29/25: Continue on M5 on CV, 15 minute checks Encourage milieu participation Continue medications CIWA not indicated at this time Patient educated on: diagnosis, medication risk/benefits and substance abuse Informed Consent: understands Reason for continued inpatient stay Substantial Risk for: inability to function and med/psych decompensation Time Spent With Patient Time: Total time managing care of this patient today ____ minutes.
[2025-07-29 19:57] VITALS: BP 130/68; PULSE 78; RESP 15; TEMP 37.1; O2SAT 94
[2025-07-30] MEDS: methADONE HCl 20 MG/2 ML ORAL.CONC 190 MG PO (07:53)
[2025-07-30 08:00] VITALS: BP 109/66; PULSE 85; RESP 18; TEMP 36.9; O2SAT 96
[2025-07-30] MEDS: buPROPion HCl XL 300 MG TAB.ER.24H PO (08:31)
[2025-07-30] MEDS: Nicotine Polacrilex Lozenge 4 MG LOZENGE BUCCAL ×4 (11:30→21:45)
--- NOTE | 2025-07-30 15:14 | HO.PSYCHPN ---
Subjective Subjective Date of Service: 07/30/25 Reason For Visit: decompensation Subjective Notes: Conditional Voluntary Healthcare Proxy: No Guardianship: No Medical Problems Affecting Mental Status: No Interim History: Seen in OT office. States that he is feeling relaxed. He is still blunted and observed nodding off in public spaces, but is also more alert today. Sleeping well, appetite good. He reports last suicidal thought was this morning - thinking it sucks being in the situation I'm in, and that it would be easier not being alive. He states that if he were ever to do that, he would overdose on Fentanyl. He does feel safe here, denies any intent to hurt himself here. He denies HI/AVH. He denies concerns/questions about his care at this time. Medication Compliance: Yes Side effects from medications: No Attending Groups: Intermittent Review of Systems Acute medical concerns: No Medical Review of Systems: unchanged Review of Systems Review of Systems Yes all other systems are reviewed and are negative Mental Status Exam Mental Status Exam Narrative: Patient Appearance: Well Groomed, adequate hygiene Patient Behavior: Appropriate Level of Consciousness: nodding off but more alert today Patient Orientation: Person, Place and Time, situational context Memory: grossly intact to recent events Psychomotor: mild slowing Speech: softspoken, no slurring Mood: ?okay? Affect: appropriate range Thought Process: Goal Oriented Thought Content: denies SI/HI; focused on treatment questions Hallucinations: Denies; does not appear preoccupied Delusions: None evinced Insight: mild impairment Judgment: mild impairment Impulsivity: low Diagnostics Vital Signs (24Hr): Vital Signs - 24 hr 07/29/25 19:57 07/30/25 08:00 Temperature 98.7 F 98.4 F Pulse Rate 78 85 Respiratory Rate 15 18 Blood Pressure 130/68 109/66 Pulse Oximetry 94 96 Oxygen Delivery Method Room Air BMI result Body Mass Index 33.3 Medications Medications Current Medications Acamprosate (Acamprosate Calcium 333 Mg Tablet.) 666 mg PO TID [facility] Last Admin: 07/30/25 14:39 Dose: 666 mg Acetaminophen (Acetaminophen 325 Mg Tablet) 650 mg PO Q6H PRN PRN Reason: Headache/Pain, Scale 1-10 Last Admin: 07/28/25 22:44 Dose: 650 mg Al Hydroxide/Mg Hydroxide (Magnesium Hydrox/Alum Hydrox 30 Ml Oral.Susp) 30 ml PO Q6H PRN PRN Reason: Heartburn/Nausea Bupropion HCl (Bupropion Hcl Xl 300 Mg Tab.Er.24h) 300 mg PO DAILY [facility] Last Admin: 07/30/25 08:31 Dose: 300 mg Clonidine HCl (Clonidine Hcl 0.2 Mg Tablet) 0.2 mg PO BID [facility]; Protocol Last Admin: 07/30/25 08:31 Dose: 0.2 mg Gabapentin (Gabapentin 600 Mg Tablet) 600 mg PO TID [facility] Last Admin: 07/30/25 14:39 Dose: 600 mg Hydroxyzine HCl (Hydroxyzine Hcl 50 Mg Tablet) 100 mg PO TID PRN PRN Reason: mild anxiety Last Admin: 07/29/25 20:17 Dose: 100 mg Magnesium Hydroxide (Milk Of Magnesia 30 Ml Oral.Susp) 30 ml PO DAILY PRN PRN Reason: Constipation Methadone HCl (Methadone Hcl 20 Mg/2 Ml Oral.Conc) 190 mg PO DAILY [facility] Last Admin: 07/30/25 07:53 Dose: 190 mg Nicotine (Nicotine 21 Mg Patch.Td24) 21 mg TRANSDERMA DAILY PRN PRN Reason: smoking cessation Nicotine Polacrilex (Nicotine Polacrilex Lozenge 4 Mg Lozenge) 4 mg BUCCAL Q2H PRN PRN Reason: Nicotine Cravings Last Admin: 07/30/25 14:02 Dose: 4 mg Olanzapine (Olanzapine 5 Mg Tablet) 5 mg PO TID PRN PRN Reason: agitation Last Admin: 07/29/25 16:21 Dose: 5 mg Quetiapine Fumarate (Quetiapine Fumarate 50 Mg Tablet) 50 mg PO BEDTIME [facility] Last Admin: 07/29/25 21:39 Dose: 50 mg Risperidone (Risperidone 1 Mg Tablet) 1 mg PO BID@0900,1400 [facility] Last Admin: 07/30/25 13:11 Dose: 1 mg Sertraline HCl (Sertraline Hcl 50 Mg Tablet) 150 mg PO DAILY [facility] Last Admin: 07/30/25 08:31 Dose: 150 mg Trazodone HCl (Trazodone Hcl 50 Mg Tablet) 50 mg PO BEDTIME MRX1 PRN PRN Reason: Insomnia Allergies Allergies Allergy/AdvReac Type Severity Reaction Status Date / Time No Known Allergies (No Known Allergy Verified 07/14/25 00:04 Allergies*) Assessment & Plan Assessment & Plan (1) MDD (major depressive disorder), recurrent severe, without psychosis: Status: Acute Code(s): F33.2 - Major depressive disorder, recurrent severe without psychotic features (2) Substance use disorder: Status: Acute Code(s): F19.90 - Other psychoactive substance use, unspecified, uncomplicated (3) Alcohol abuse: Status: Acute Code(s): F10.10 - Alcohol abuse, uncomplicated Plan 29 yo male, hx of alcohol, cocaine, opioid use disorders, anxiety, depression, recent discharge from [facility] admitted in transfer from [facility] where he presented with SI with a plan to overdose on Fentanyl. Pt reports being kicked out of a rehab program, attempted to return to him mother's home and was declined when he asked to stay there. He reports going to the street, using, trying to stay [place], however, has several scratches from bushes and reports very poor sleep. Pt was falling asleep while we were meeting. We discussed that he was reluctant last admit regarding treatment. I will go to CSS at [facility] if you can help me get in. Pt continued to discuss his sleep, which he reports has been poor since his sister , Jul 2024. He continued to talk of grief and cried-this anniversary being difficult and full of emotion for him. Reports daily alcohol and heroin use. 07/30/25: Continue on M5 on CV, 15 minute checks Encourage milieu participation Continue medications CIWA not indicated at this time Patient educated on: diagnosis, medication risk/benefits and substance abuse Informed Consent: understands Reason for continued inpatient stay Substantial Risk for: harm to self, inability to function and rapid decompensation Time Spent With Patient Time: Total time managing care of this patient today _25___ minutes.
[2025-07-30 19:58] VITALS: BP 135/82; PULSE 100; RESP 15; TEMP 36.6; O2SAT 96
[2025-07-31] MEDS: methADONE HCl 20 MG/2 ML ORAL.CONC 190 MG PO (07:51)
[2025-07-31 08:00] VITALS: BP 106/55; PULSE 76; TEMP 36.2; O2SAT 98
[2025-07-31] MEDS: buPROPion HCl XL 300 MG TAB.ER.24H PO (08:23)
[2025-07-31] MEDS: Nicotine Polacrilex Lozenge 4 MG LOZENGE BUCCAL ×5 (08:24→22:43)
--- NOTE | 2025-07-31 09:41 | HO.PSYCHPN ---
Subjective Subjective Date of Service: 07/31/25 Reason For Visit: decompensation Interim History: met with patient; discussed with team anxiety/depression under control; wants program Mental Status Exam Mental Status Exam Narrative: Patient Appearance: Well Groomed, adequate hygiene Patient Behavior: Appropriate Level of Consciousness: nodding off at times, but more alert today Patient Orientation: Person, Place and Time, situational context Memory: grossly intact to recent events Psychomotor: mild slowing Speech: normal rate, volume, prosody Mood: ?okay? Affect: appropriate range Thought Process: Goal Oriented Thought Content: denies SI/HI; focused on treatment questions Hallucinations: Denies; does not appear preoccupied Delusions: None evinced Insight/Judgment: fair Diagnostics Vital Signs (24Hr): Vital Signs - 24 hr 07/30/25 19:58 07/31/25 08:00 Temperature 97.9 F 97.1 F Pulse Rate 100 76 Respiratory Rate 15 Blood Pressure 135/82 106/55 L Pulse Oximetry 96 98 Oxygen Delivery Method Room Air BMI result Body Mass Index 33.3 Medications Medications Current Medications Acamprosate (Acamprosate Calcium 333 Mg Tablet.) 666 mg PO TID [facility] Last Admin: 07/31/25 08:23 Dose: 666 mg Acetaminophen (Acetaminophen 325 Mg Tablet) 650 mg PO Q6H PRN PRN Reason: Headache/Pain, Scale 1-10 Last Admin: 07/28/25 22:44 Dose: 650 mg Al Hydroxide/Mg Hydroxide (Magnesium Hydrox/Alum Hydrox 30 Ml Oral.Susp) 30 ml PO Q6H PRN PRN Reason: Heartburn/Nausea Bupropion HCl (Bupropion Hcl Xl 300 Mg Tab.Er.24h) 300 mg PO DAILY [facility] Last Admin: 07/31/25 08:23 Dose: 300 mg Clonidine HCl (Clonidine Hcl 0.2 Mg Tablet) 0.2 mg PO BID [facility]; Protocol Last Admin: 07/31/25 08:23 Dose: 0.2 mg Gabapentin (Gabapentin 600 Mg Tablet) 600 mg PO TID [facility] Last Admin: 07/31/25 08:23 Dose: 600 mg Hydroxyzine HCl (Hydroxyzine Hcl 50 Mg Tablet) 100 mg PO TID PRN PRN Reason: mild anxiety Last Admin: 07/30/25 21:45 Dose: 100 mg Magnesium Hydroxide (Milk Of Magnesia 30 Ml Oral.Susp) 30 ml PO DAILY PRN PRN Reason: Constipation Methadone HCl (Methadone Hcl 20 Mg/2 Ml Oral.Conc) 190 mg PO DAILY [facility] Last Admin: 07/31/25 07:51 Dose: 190 mg Nicotine (Nicotine 21 Mg Patch.Td24) 21 mg TRANSDERMA DAILY PRN PRN Reason: smoking cessation Nicotine Polacrilex (Nicotine Polacrilex Lozenge 4 Mg Lozenge) 4 mg BUCCAL Q2H PRN PRN Reason: Nicotine Cravings Last Admin: 07/31/25 08:24 Dose: 4 mg Olanzapine (Olanzapine 5 Mg Tablet) 5 mg PO TID PRN PRN Reason: agitation Last Admin: 07/30/25 19:27 Dose: 5 mg Quetiapine Fumarate (Quetiapine Fumarate 50 Mg Tablet) 50 mg PO BEDTIME [facility] Last Admin: 07/30/25 21:45 Dose: 50 mg Risperidone (Risperidone 1 Mg Tablet) 1 mg PO BID@0900,1400 [facility] Last Admin: 07/31/25 08:23 Dose: 1 mg Sertraline HCl (Sertraline Hcl 50 Mg Tablet) 150 mg PO DAILY [facility] Last Admin: 07/31/25 08:23 Dose: 150 mg Trazodone HCl (Trazodone Hcl 50 Mg Tablet) 50 mg PO BEDTIME MRX1 PRN PRN Reason: Insomnia Allergies Allergies Allergy/AdvReac Type Severity Reaction Status Date / Time No Known Allergies (No Known Allergy Verified 07/14/25 00:04 Allergies*) Assessment & Plan Assessment & Plan (1) MDD (major depressive disorder), recurrent severe, without psychosis: Status: Acute Code(s): F33.2 - Major depressive disorder, recurrent severe without psychotic features (2) Substance use disorder: Status: Acute Code(s): F19.90 - Other psychoactive substance use, unspecified, uncomplicated (3) Alcohol abuse: Status: Acute Code(s): F10.10 - Alcohol abuse, uncomplicated Plan 29 yo male, hx of alcohol, cocaine, opioid use disorders, anxiety, depression, recent discharge from [facility] admitted in transfer from [facility] where he presented with SI with a plan to overdose on Fentanyl. Pt reports being kicked out of a rehab program, attempted to return to him mother's home and was declined when he asked to stay there. He reports going to the street, using, trying to stay [place], however, has several scratches from bushes and reports very poor sleep. Pt was falling asleep while we were meeting. We discussed that he was reluctant last admit regarding treatment. I will go to CSS at [facility] if you can help me get in. Pt continued to discuss his sleep, which he reports has been poor since his sister , Jul 2024. He continued to talk of grief and cried-this anniversary being difficult and full of emotion for him. Reports daily alcohol and heroin use. 07/30/25: Continue on M5 on CV, 15 minute checks Encourage milieu participation Continue medications CIWA not indicated at this time 07/31 pt stable, at baseline; continue tx plan Patient educated on: diagnosis and medication risk/benefits Informed Consent: understands Reason for continued inpatient stay Substantial Risk for: stable for discharge Time Spent With Patient Time: Total time managing care of this patient today ____ minutes.
[2025-07-31 20:14] VITALS: BP 115/62; PULSE 93; RESP 16; TEMP 36.6; O2SAT 96
[2025-07-31 21:37] VITALS: BP 115/62
[2025-08-01] MEDS: Nicotine Polacrilex Lozenge 4 MG LOZENGE BUCCAL ×7 (02:54→23:37)
[2025-08-01] MEDS: methADONE HCl 20 MG/2 ML ORAL.CONC 190 MG PO (07:51)
[2025-08-01 08:00] VITALS: BP 100/59; PULSE 80; RESP 18; TEMP 36.4; O2SAT 94
[2025-08-01] MEDS: buPROPion HCl XL 300 MG TAB.ER.24H PO (08:24)
--- NOTE | 2025-08-01 17:39 | HO.PSYCHPN ---
Subjective Subjective Date of Service: 08/01/25 Reason For Visit: decompensation Interim History: Met with patient; discussed with team pt reports doing well; mood is good; feels medications and right. Hoping to get into a program Mental Status Exam Mental Status Exam Narrative: Patient Appearance: Well Groomed, adequate hygiene Patient Behavior: Appropriate Patient Orientation: Person, Place and Time, situational context Memory: grossly intact to recent events Psychomotor: mild slowing Speech: normal rate, volume, prosody Mood: ?good Affect: appropriate range Thought Process: Goal Oriented Thought Content: denies SI/HI; focused on treatment questions Hallucinations: none Delusions: None Insight/Judgment: fair Diagnostics Vital Signs (24Hr): Vital Signs - 24 hr 07/31/25 20:14 07/31/25 21:37 08/01/25 08:00 Temperature 97.8 F 97.5 F Pulse Rate 93 80 Respiratory Rate 16 18 Blood Pressure 115/62 115/62 100/59 L Pulse Oximetry 96 94 Oxygen Delivery Method Room Air Room Air BMI result Body Mass Index 33.3 Medications Medications Current Medications Acamprosate (Acamprosate Calcium 333 Mg Tablet.) 666 mg PO TID [facility] Last Admin: 08/01/25 14:46 Dose: 666 mg Acetaminophen (Acetaminophen 325 Mg Tablet) 650 mg PO Q6H PRN PRN Reason: Headache/Pain, Scale 1-10 Last Admin: 07/28/25 22:44 Dose: 650 mg Al Hydroxide/Mg Hydroxide (Magnesium Hydrox/Alum Hydrox 30 Ml Oral.Susp) 30 ml PO Q6H PRN PRN Reason: Heartburn/Nausea Bupropion HCl (Bupropion Hcl Xl 300 Mg Tab.Er.24h) 300 mg PO DAILY [facility] Last Admin: 08/01/25 08:24 Dose: 300 mg Clonidine HCl (Clonidine Hcl 0.2 Mg Tablet) 0.2 mg PO BID [facility]; Protocol Last Admin: 08/01/25 08:24 Dose: 0.2 mg Gabapentin (Gabapentin 600 Mg Tablet) 600 mg PO TID [facility] Last Admin: 08/01/25 14:46 Dose: 600 mg Hydroxyzine HCl (Hydroxyzine Hcl 50 Mg Tablet) 100 mg PO TID PRN PRN Reason: mild anxiety Last Admin: 08/01/25 14:46 Dose: 100 mg Magnesium Hydroxide (Milk Of Magnesia 30 Ml Oral.Susp) 30 ml PO DAILY PRN PRN Reason: Constipation Methadone HCl (Methadone Hcl 20 Mg/2 Ml Oral.Conc) 190 mg PO DAILY [facility] Last Admin: 08/01/25 07:51 Dose: 190 mg Nicotine (Nicotine 21 Mg Patch.Td24) 21 mg TRANSDERMA DAILY PRN PRN Reason: smoking cessation Nicotine Polacrilex (Nicotine Polacrilex Lozenge 4 Mg Lozenge) 4 mg BUCCAL Q2H PRN PRN Reason: Nicotine Cravings Last Admin: 08/01/25 14:46 Dose: 4 mg Olanzapine (Olanzapine 5 Mg Tablet) 5 mg PO TID PRN PRN Reason: agitation Last Admin: 07/30/25 19:27 Dose: 5 mg Quetiapine Fumarate (Quetiapine Fumarate 50 Mg Tablet) 50 mg PO BEDTIME [facility] Last Admin: 07/31/25 21:37 Dose: 50 mg Risperidone (Risperidone 1 Mg Tablet) 1 mg PO BID@0900,1400 [facility] Last Admin: 08/01/25 13:11 Dose: 1 mg Sertraline HCl (Sertraline Hcl 50 Mg Tablet) 150 mg PO DAILY [facility] Last Admin: 08/01/25 08:24 Dose: 150 mg Trazodone HCl (Trazodone Hcl 50 Mg Tablet) 50 mg PO BEDTIME MRX1 PRN PRN Reason: Insomnia Allergies Allergies Allergy/AdvReac Type Severity Reaction Status Date / Time No Known Allergies (No Known Allergy Verified 07/14/25 00:04 Allergies*) Assessment & Plan Assessment & Plan (1) MDD (major depressive disorder), recurrent severe, without psychosis: Status: Acute Code(s): F33.2 - Major depressive disorder, recurrent severe without psychotic features (2) Substance use disorder: Status: Acute Code(s): F19.90 - Other psychoactive substance use, unspecified, uncomplicated (3) Alcohol abuse: Status: Acute Code(s): F10.10 - Alcohol abuse, uncomplicated (4) Homeless: Status: Acute Code(s): Z59.00 - Homelessness unspecified Plan 29 yo male, hx of alcohol, cocaine, opioid use disorders, anxiety, depression, recent discharge from [facility] [place] in transfer from [facility] where he presented with SI with a plan to overdose on Fentanyl. Pt reports being kicked out of a rehab program, attempted to return to him mother's home and was declined when he asked to stay there. He reports going to the street, using, trying to stay [place], however, has several scratches from bushes and reports very poor sleep. Pt was falling asleep while we were meeting. We discussed that he was reluctant last admit regarding treatment. I will go to CSS at [facility] if you can help me get in. Pt continued to discuss his sleep, which he reports has been poor since his sister , Jul 2024. He continued to talk of grief and cried-this anniversary being difficult and full of emotion for him. Reports daily alcohol and heroin use. 07/30/25: Continue on M5 on CV, 15 minute checks Encourage milieu participation Continue medications CIWA not indicated at this time 07/31 pt stable, at baseline; continue tx plan 08/01 dispo planning Pt remains in good behavioral and impulse control; appropriate with peers; engaged Pt stable on current medication regimen Patient educated on: diagnosis, medication risk/benefits and therapeutic strategies Informed Consent: understands Reason for continued inpatient stay Substantial Risk for: stable for discharge Time Spent With Patient Time: Total time managing care of this patient today ____ minutes.
[2025-08-01 20:00] VITALS: BP 126/73; PULSE 88; RESP 18; TEMP 36.7; O2SAT 96
[2025-08-01 20:38] VITALS: BP 126/73
[2025-08-02] MEDS: methADONE HCl 20 MG/2 ML ORAL.CONC 190 MG PO (07:44)
[2025-08-02 07:55] VITALS: BP 105/57; PULSE 83; TEMP 36.3; O2SAT 95
[2025-08-02 09:17] VITALS: BP 110/60
[2025-08-02] MEDS: buPROPion HCl XL 300 MG TAB.ER.24H PO (09:17)
--- NOTE | 2025-08-02 09:57 | HO.PSYCHPN ---
Subjective Subjective Date of Service: 08/02/25 Reason For Visit: decompensation Interim History: met with patient; discussed with team No change in presentation; remains in good mood, hoping to get into a program, denies psychiatric symptoms. Going to [facility] Mental Status Exam Mental Status Exam Narrative: Patient Appearance: Well Groomed, adequate hygiene Patient Behavior: Appropriate Patient Orientation: Person, Place and Time, situational context Memory: grossly intact to recent events Psychomotor: mild slowing Speech: normal rate, volume, prosody Mood: ?good Affect: appropriate range Thought Process: Goal Oriented Thought Content: denies SI/HI; focused on treatment questions Hallucinations: none Delusions: None Insight/Judgment: fair Diagnostics Vital Signs (24Hr): Vital Signs - 24 hr 08/01/25 20:00 08/01/25 20:38 08/02/25 07:55 Temperature 98.0 F 97.4 F Pulse Rate 88 83 Respiratory Rate 18 Blood Pressure 126/73 126/73 105/57 L Pulse Oximetry 96 95 Oxygen Delivery Method Room Air Room Air 08/02/25 09:17 Temperature Pulse Rate Respiratory Rate Blood Pressure 110/60 Pulse Oximetry Oxygen Delivery Method BMI result Body Mass Index 33.3 Medications Medications Current Medications Acamprosate (Acamprosate Calcium 333 Mg Tablet.) 666 mg PO TID [facility] Last Admin: 08/02/25 09:17 Dose: 666 mg Acetaminophen (Acetaminophen 325 Mg Tablet) 650 mg PO Q6H PRN PRN Reason: Headache/Pain, Scale 1-10 Last Admin: 07/28/25 22:44 Dose: 650 mg Al Hydroxide/Mg Hydroxide (Magnesium Hydrox/Alum Hydrox 30 Ml Oral.Susp) 30 ml PO Q6H PRN PRN Reason: Heartburn/Nausea Bupropion HCl (Bupropion Hcl Xl 300 Mg Tab.Er.24h) 300 mg PO DAILY [facility] Last Admin: 08/02/25 09:17 Dose: 300 mg Clonidine HCl (Clonidine Hcl 0.2 Mg Tablet) 0.2 mg PO BID [facility]; Protocol Last Admin: 08/02/25 09:17 Dose: 0.2 mg Gabapentin (Gabapentin 600 Mg Tablet) 600 mg PO TID [facility] Last Admin: 08/02/25 09:17 Dose: 600 mg Hydroxyzine HCl (Hydroxyzine Hcl 50 Mg Tablet) 100 mg PO TID PRN PRN Reason: mild anxiety Last Admin: 08/01/25 20:46 Dose: 100 mg Magnesium Hydroxide (Milk Of Magnesia 30 Ml Oral.Susp) 30 ml PO DAILY PRN PRN Reason: Constipation Methadone HCl (Methadone Hcl 20 Mg/2 Ml Oral.Conc) 190 mg PO DAILY [facility] Last Admin: 08/02/25 07:44 Dose: 190 mg Nicotine (Nicotine 21 Mg Patch.Td24) 21 mg TRANSDERMA DAILY PRN PRN Reason: smoking cessation Nicotine Polacrilex (Nicotine Polacrilex Lozenge 4 Mg Lozenge) 4 mg BUCCAL Q2H PRN PRN Reason: Nicotine Cravings Last Admin: 08/01/25 23:37 Dose: 4 mg Olanzapine (Olanzapine 5 Mg Tablet) 5 mg PO TID PRN PRN Reason: agitation Last Admin: 08/01/25 17:47 Dose: 5 mg Quetiapine Fumarate (Quetiapine Fumarate 50 Mg Tablet) 50 mg PO BEDTIME [facility] Last Admin: 08/01/25 20:38 Dose: 50 mg Risperidone (Risperidone 1 Mg Tablet) 1 mg PO BID@0900,1400 [facility] Last Admin: 08/02/25 09:17 Dose: 1 mg Sertraline HCl (Sertraline Hcl 50 Mg Tablet) 150 mg PO DAILY [facility] Last Admin: 08/02/25 09:17 Dose: 150 mg Trazodone HCl (Trazodone Hcl 50 Mg Tablet) 50 mg PO BEDTIME MRX1 PRN PRN Reason: Insomnia Allergies Allergies Allergy/AdvReac Type Severity Reaction Status Date / Time No Known Allergies (No Known Allergy Verified 07/14/25 00:04 Allergies*) Assessment & Plan Assessment & Plan (1) MDD (major depressive disorder), recurrent severe, without psychosis: Status: Acute Code(s): F33.2 - Major depressive disorder, recurrent severe without psychotic features (2) Substance use disorder: Status: Acute Code(s): F19.90 - Other psychoactive substance use, unspecified, uncomplicated (3) Alcohol abuse: Status: Acute Code(s): F10.10 - Alcohol abuse, uncomplicated (4) Homeless: Status: Acute Code(s): Z59.00 - Homelessness unspecified Plan 29 yo male, hx of alcohol, cocaine, opioid use disorders, anxiety, depression, recent discharge from [facility] admitted in transfer from [facility] where he presented with SI with a plan to overdose on Fentanyl. Pt reports being kicked out of a rehab program, attempted to return to him mother's home and was declined when he asked to stay there. He reports going to the street, using, [place] stay [place], however, has several scratches from bushes and reports very poor sleep. Pt was falling asleep while we were meeting. We discussed that he was reluctant last admit regarding treatment. I will go to CSS at [facility] if you can help me get in. Pt continued to discuss his sleep, which he reports has been poor since his sister , Jul 2024. He continued to talk of grief and cried-this anniversary being difficult and full of emotion for him. Reports daily alcohol and heroin use. 07/30/25: Continue on M5 on CV, 15 minute checks Encourage milieu participation Continue medications CIWA not indicated at this time 07/31 pt stable, at baseline; continue tx plan 08/01 dispo planning 08/02 continue treatment plan; dispo planning, patient hoping to get into a program Pt remains in good behavioral and impulse control; appropriate with peers; engaged Pt stable on current medication regimen Patient educated on: diagnosis and medication risk/benefits Informed Consent: understands Reason for continued inpatient stay Substantial Risk for: stable for discharge Time Spent With Patient Time: Total time managing care of this patient today ____ minutes.
[2025-08-02] MEDS: Nicotine Polacrilex Lozenge 4 MG LOZENGE BUCCAL ×4 (12:57→22:09)
[2025-08-02 20:00] VITALS: BP 121/62; PULSE 92; TEMP 37; O2SAT 96
[2025-08-03] MEDS: methADONE HCl 20 MG/2 ML ORAL.CONC 190 MG PO (07:52)
[2025-08-03 08:24] VITALS: BP 143/88; PULSE 90; TEMP 36.9; O2SAT 97
[2025-08-03] MEDS: Nicotine Polacrilex Lozenge 4 MG LOZENGE BUCCAL ×6 (08:53→23:03)
[2025-08-03] MEDS: buPROPion HCl XL 300 MG TAB.ER.24H PO (08:53)
--- NOTE | 2025-08-03 09:52 | HO.PSYCHPN ---
Subjective Subjective Date of Service: 08/03/25 Reason For Visit: decompensation Interim History: Met with patient; discussed with team; No change in presentation, remains stable, good mood, waiting for program Mental Status Exam Mental Status Exam Narrative: Patient Appearance: Well Groomed, adequate hygiene Patient Behavior: Appropriate Patient Orientation: Person, Place and Time, situational context Memory: grossly intact to recent events Psychomotor: mild slowing Speech: normal rate, volume, prosody Mood: ?good Affect: appropriate range Thought Process: Goal Oriented Thought Content: denies SI/HI; focused on treatment questions Hallucinations: none Delusions: None Insight/Judgment: fair Diagnostics Vital Signs (24Hr): Vital Signs - 24 hr 08/02/25 20:00 08/03/25 08:24 Temperature 98.6 F 98.5 F Pulse Rate 92 90 Blood Pressure 121/62 143/88 H Pulse Oximetry 96 97 Oxygen Delivery Method Room Air Room Air BMI result Body Mass Index 33.3 Medications Medications Current Medications Acamprosate (Acamprosate Calcium 333 Mg Tablet.) 666 mg PO TID [facility] Last Admin: 08/03/25 08:53 Dose: 666 mg Acetaminophen (Acetaminophen 325 Mg Tablet) 650 mg PO Q6H PRN PRN Reason: Headache/Pain, Scale 1-10 Last Admin: 07/28/25 22:44 Dose: 650 mg Al Hydroxide/Mg Hydroxide (Magnesium Hydrox/Alum Hydrox 30 Ml Oral.Susp) 30 ml PO Q6H PRN PRN Reason: Heartburn/Nausea Bupropion HCl (Bupropion Hcl Xl 300 Mg Tab.Er.24h) 300 mg PO DAILY [facility] Last Admin: 08/03/25 08:53 Dose: 300 mg Clonidine HCl (Clonidine Hcl 0.2 Mg Tablet) 0.2 mg PO BID [facility]; Protocol Last Admin: 08/03/25 08:53 Dose: 0.2 mg Gabapentin (Gabapentin 600 Mg Tablet) 600 mg PO TID [facility] Last Admin: 08/03/25 08:53 Dose: 600 mg Hydroxyzine HCl (Hydroxyzine Hcl 50 Mg Tablet) 100 mg PO TID PRN PRN Reason: mild anxiety Last Admin: 08/02/25 12:56 Dose: 100 mg Magnesium Hydroxide (Milk Of Magnesia 30 Ml Oral.Susp) 30 ml PO DAILY PRN PRN Reason: Constipation Methadone HCl (Methadone Hcl 20 Mg/2 Ml Oral.Conc) 190 mg PO DAILY [facility] Last Admin: 08/03/25 07:52 Dose: 190 mg Nicotine (Nicotine 21 Mg Patch.Td24) 21 mg TRANSDERMA DAILY PRN PRN Reason: smoking cessation Nicotine Polacrilex (Nicotine Polacrilex Lozenge 4 Mg Lozenge) 4 mg BUCCAL Q2H PRN PRN Reason: Nicotine Cravings Last Admin: 08/03/25 08:53 Dose: 4 mg Olanzapine (Olanzapine 5 Mg Tablet) 5 mg PO TID PRN PRN Reason: agitation Last Admin: 08/02/25 12:56 Dose: 5 mg Quetiapine Fumarate (Quetiapine Fumarate 50 Mg Tablet) 50 mg PO BEDTIME [facility] Last Admin: 08/02/25 22:06 Dose: 50 mg Risperidone (Risperidone 1 Mg Tablet) 1 mg PO BID@0900,1400 [facility] Last Admin: 08/03/25 08:54 Dose: 1 mg Sertraline HCl (Sertraline Hcl 50 Mg Tablet) 150 mg PO DAILY [facility] Last Admin: 08/03/25 08:54 Dose: 150 mg Trazodone HCl (Trazodone Hcl 50 Mg Tablet) 50 mg PO BEDTIME MRX1 PRN PRN Reason: Insomnia Allergies Allergies Allergy/AdvReac Type Severity Reaction Status Date / Time No Known Allergies (No Known Allergy Verified 07/14/25 00:04 Allergies*) Assessment & Plan Assessment & Plan (1) MDD (major depressive disorder), recurrent severe, without psychosis: Status: Acute Code(s): F33.2 - Major depressive disorder, recurrent severe without psychotic features (2) Substance use disorder: Status: Acute Code(s): F19.90 - Other psychoactive substance use, unspecified, uncomplicated (3) Alcohol abuse: Status: Acute Code(s): F10.10 - Alcohol abuse, uncomplicated (4) Homeless: Status: Acute Code(s): Z59.00 - Homelessness unspecified Plan 29 yo male, hx of alcohol, cocaine, opioid use disorders, anxiety, depression, recent discharge from [facility] admitted in transfer from [facility] where he presented with SI with a plan to overdose on Fentanyl. Pt reports being kicked out of a rehab program, attempted to return to him mother's home and was declined when he asked to stay there. He reports going to the street, using, trying to stay [place], however, has several scratches from bushes and reports very poor sleep. Pt was falling asleep while we were meeting. We discussed that he was reluctant last admit regarding treatment. I will go to CSS at [facility] if you can help me get in. Pt continued to discuss his sleep, which he reports has been poor since his sister , Jul 2024. He continued to talk of grief and cried-this anniversary being difficult and full of emotion for him. Reports daily alcohol and heroin use. 07/30/25: Continue on M5 on CV, 15 minute checks Encourage milieu participation Continue medications CIWA not indicated at this time 07/31 pt stable, at baseline; continue tx plan 08/01 dispo planning 08/02 continue treatment plan; dispo planning, patient hoping to get into a program 08/03 CTP Pt remains in good behavioral and impulse control; appropriate with peers; engaged Pt stable on current medication regimen Patient educated on: diagnosis Informed Consent: understands Reason for continued inpatient stay Substantial Risk for: stable for discharge Time Spent With Patient Time: Total time managing care of this patient today ____ minutes.
[2025-08-03 20:00] VITALS: BP 129/74; PULSE 88; TEMP 36.4; O2SAT 96
[2025-08-04 08:00] VITALS: BP 113/64; PULSE 85; RESP 16; TEMP 36.4; O2SAT 95
[2025-08-04] MEDS: methADONE HCl 20 MG/2 ML ORAL.CONC 190 MG PO (08:01)
[2025-08-04] MEDS: buPROPion HCl XL 300 MG TAB.ER.24H PO (08:40)
[2025-08-04] MEDS: Nicotine Polacrilex Lozenge 4 MG LOZENGE BUCCAL ×4 (09:38→20:14)
--- NOTE | 2025-08-04 18:49 | P.PNPSI_ITS ---
Subjective Subjective Date of Service: 08/04/25 Reason For Visit: decompensation Interim History: Met with patient; discussed with team Patient remains stable, at baseline, good mood Mental Status Exam Mental Status Exam Narrative: Patient Appearance: Well Groomed, adequate hygiene Patient Behavior: Appropriate Patient Orientation: Person, Place and Time, situational context Memory: grossly intact to recent events Psychomotor: mild slowing Speech: normal rate, volume, prosody Mood: ?good Affect: appropriate range Thought Process: Goal Oriented Thought Content: denies SI/HI; focused on treatment questions Hallucinations: none Delusions: None Insight/Judgment: fair Diagnostics Vital Signs (24Hr): Vital Signs - 24 hr 08/03/25 20:00 08/04/25 08:00 Temperature 97.5 F 97.6 F Pulse Rate 88 85 Respiratory Rate 16 Blood Pressure 129/74 113/64 Pulse Oximetry 96 95 Oxygen Delivery Method Room Air Room Air BMI result Body Mass Index 33.3 Medications Medications Current Medications Acamprosate (Acamprosate Calcium 333 Mg Tablet.Dr) 666 mg PO TID [facility] Last Admin: 08/04/25 15:12 Dose: 666 mg Acetaminophen (Acetaminophen 325 Mg Tablet) 650 mg PO Q6H PRN PRN Reason: Headache/Pain, Scale 1-10 Last Admin: 07/28/25 22:44 Dose: 650 mg Al Hydroxide/Mg Hydroxide (Magnesium Hydrox/Alum Hydrox 30 Ml Oral.Susp) 30 ml PO Q6H PRN PRN Reason: Heartburn/Nausea Bupropion HCl (Bupropion Hcl Xl 300 Mg Tab.Er.24h) 300 mg PO DAILY [facility] Last Admin: 08/04/25 08:40 Dose: 300 mg Clonidine HCl (Clonidine Hcl 0.2 Mg Tablet) 0.2 mg PO BID [facility]; Protocol Last Admin: 08/04/25 08:40 Dose: 0.2 mg Gabapentin (Gabapentin 600 Mg Tablet) 600 mg PO TID [facility] Last Admin: 08/04/25 15:12 Dose: 600 mg Hydroxyzine HCl (Hydroxyzine Hcl 50 Mg Tablet) 100 mg PO TID PRN PRN Reason: mild anxiety Last Admin: 08/04/25 13:17 Dose: 100 mg Magnesium Hydroxide (Milk Of Magnesia 30 Ml Oral.Susp) 30 ml PO DAILY PRN PRN Reason: Constipation Methadone HCl (Methadone Hcl 20 Mg/2 Ml Oral.Conc) 190 mg PO DAILY [facility] Last Admin: 08/04/25 08:01 Dose: 190 mg Nicotine (Nicotine 21 Mg Patch.Td24) 21 mg TRANSDERMA DAILY PRN PRN Reason: smoking cessation Nicotine Polacrilex (Nicotine Polacrilex Lozenge 4 Mg Lozenge) 4 mg BUCCAL Q2H PRN PRN Reason: Nicotine Cravings Last Admin: 08/04/25 16:20 Dose: 4 mg Olanzapine (Olanzapine 5 Mg Tablet) 5 mg PO TID PRN PRN Reason: agitation Last Admin: 08/04/25 16:19 Dose: 5 mg Quetiapine Fumarate (Quetiapine Fumarate 50 Mg Tablet) 50 mg PO BEDTIME [facility] Last Admin: 08/03/25 22:44 Dose: 50 mg Risperidone (Risperidone 1 Mg Tablet) 1 mg PO BID@0900,1400 [facility] Last Admin: 08/04/25 15:12 Dose: 1 mg Sertraline HCl (Sertraline Hcl 50 Mg Tablet) 150 mg PO DAILY [facility] Last Admin: 08/04/25 08:41 Dose: 150 mg Trazodone HCl (Trazodone Hcl 50 Mg Tablet) 50 mg PO BEDTIME MRX1 PRN PRN Reason: Insomnia Allergies Allergies Allergy/AdvReac Type Severity Reaction Status Date / Time No Known Allergies (No Known Allergy Verified 07/14/25 00:04 Allergies*) Assessment & Plan Assessment & Plan (1) MDD (major depressive disorder), recurrent severe, without psychosis: Status: Acute Code(s): F33.2 - Major depressive disorder, recurrent severe without psychotic features (2) Substance use disorder: Status: Acute Code(s): F19.90 - Other psychoactive substance use, unspecified, uncomplicated (3) Alcohol abuse: Status: Acute Code(s): F10.10 - Alcohol abuse, uncomplicated (4) Homeless: Status: Acute Code(s): Z59.00 - Homelessness unspecified Plan 29 yo male, hx of alcohol, cocaine, opioid use disorders, anxiety, depression, recent discharge from [facility] admitted in transfer from [facility] where he presented with SI with a plan to overdose on Fentanyl. Pt reports being kic ked out of a rehab program, attempted to return to him mother's home and was declined when he asked to stay there. He reports going to the street, using, trying to stay [place], however, has several scratches from bushes and reports very poor sleep. Pt was falling asleep while we were meeting. We discussed that he was reluctant last admit regarding treatment. I will go to CSS at [facility] if you can help me get in. Pt continued to discuss his sleep, which he reports has been poor since his sister , Jul 2024. He continued to talk of grief and cried-this anniversary being difficult and full of emotion for him. Reports daily alcohol and heroin use. 07/30/25: Continue on M5 on CV, 15 minute checks Encourage milieu participation Continue medications CIWA not indicated at this time 07/31 pt stable, at baseline; continue tx plan 08/01 dispo planning 08/02 continue treatment plan; dispo planning, patient hoping to get into a program 08/03 CTP 08/04 continue treatment plan; patient remains stable, good mood, at baseline Pt remains in good behavioral and impulse control; appropriate with peers; engaged Pt stable on current medication regimen Patient educated on: diagnosis Informed Consent: understands Reason for continued inpatient stay Substantial Risk for: stable for discharge Time Spent With Patient Time: Total time managing care of this patient today ____ minutes.
[2025-08-04 20:13] VITALS: BP 107/64
[2025-08-04 20:16] VITALS: BP 107/64; PULSE 90; RESP 18; TEMP 36.4; O2SAT 95
[2025-08-05] MEDS: Nicotine Polacrilex Lozenge 4 MG LOZENGE BUCCAL ×6 (00:56→21:41)
--- NOTE | 2025-08-05 09:23 | HO.PSYCHPN ---
Subjective Subjective Date of Service: 08/05/25 Reason For Visit: decompensation Interim History: met with patient; discussed with team; reviewed chart Patient reports he continues to do well. Denies psychiatric symptoms. Building Custodial Supervisor discussed with him why he seems tired and morning and patient shared that this frequently happens when he is enclosed on a small inpatient unit, with little to do, no opportunity for any physical activity, but when he is out and about in the community, he does not feel tired at all. Mental Status Exam Mental Status Exam Narrative: Patient Appearance: Well Groomed, adequate hygiene Patient Behavior: Appropriate Patient Orientation: Person, Place and Time, situational context Memory: grossly intact to recent events Psychomotor: No retardation/agitation Speech: normal rate, volume, prosody Mood: ?good Affect: appropriate range Thought Process: Goal Oriented, linear and logical Thought Content: Aftercare; denies SI/HI; focused on treatment questions Hallucinations: none Delusions: None Insight/Judgment: fair Diagnostics Vital Signs (24Hr): Vital Signs - 24 hr 08/04/25 20:13 08/04/25 20:16 Temperature 97.5 F Pulse Rate 90 Respiratory Rate 18 Blood Pressure 107/64 107/64 Pulse Oximetry 95 Oxygen Delivery Method Room Air BMI result Body Mass Index 33.3 Medications Medications Current Medications Acamprosate (Acamprosate Calcium 333 Mg Tablet.) 666 mg PO TID [facility] Last Admin: 08/04/25 20:14 Dose: 666 mg Acetaminophen (Acetaminophen 325 Mg Tablet) 650 mg PO Q6H PRN PRN Reason: Headache/Pain, Scale 1-10 Last Admin: 07/28/25 22:44 Dose: 650 mg Al Hydroxide/Mg Hydroxide (Magnesium Hydrox/Alum Hydrox 30 Ml Oral.Susp) 30 ml PO Q6H PRN PRN Reason: Heartburn/Nausea Bupropion HCl (Bupropion Hcl Xl 300 Mg Tab.Er.24h) 300 mg PO DAILY [facility] Last Admin: 08/04/25 08:40 Dose: 300 mg Clonidine HCl (Clonidine Hcl 0.2 Mg Tablet) 0.2 mg PO BID [facility]; Protocol Last Admin: 08/04/25 20:13 Dose: 0.2 mg Gabapentin (Gabapentin 600 Mg Tablet) 600 mg PO TID [facility] Last Admin: 08/04/25 20:14 Dose: 600 mg Hydroxyzine HCl (Hydroxyzine Hcl 50 Mg Tablet) 100 mg PO TID PRN PRN Reason: mild anxiety Last Admin: 08/04/25 13:17 Dose: 100 mg Magnesium Hydroxide (Milk Of Magnesia 30 Ml Oral.Susp) 30 ml PO DAILY PRN PRN Reason: Constipation Methadone HCl (Methadone Hcl 20 Mg/2 Ml Oral.Conc) 190 mg PO DAILY [facility] Last Admin: 08/04/25 08:01 Dose: 190 mg Nicotine (Nicotine 21 Mg Patch.Td24) 21 mg TRANSDERMA DAILY PRN PRN Reason: smoking cessation Nicotine Polacrilex (Nicotine Polacrilex Lozenge 4 Mg Lozenge) 4 mg BUCCAL Q2H PRN PRN Reason: Nicotine Cravings Last Admin: 08/05/25 00:56 Dose: 4 mg Olanzapine (Olanzapine 5 Mg Tablet) 5 mg PO TID PRN PRN Reason: agitation Last Admin: 08/04/25 16:19 Dose: 5 mg Quetiapine Fumarate (Quetiapine Fumarate 50 Mg Tablet) 50 mg PO BEDTIME [facility] Last Admin: 08/04/25 21:57 Dose: 50 mg Risperidone (Risperidone 1 Mg Tablet) 1 mg PO BID@0900,1400 [facility] Last Admin: 08/04/25 15:12 Dose: 1 mg Sertraline HCl (Sertraline Hcl 50 Mg Tablet) 150 mg PO DAILY [facility] Last Admin: 08/04/25 08:41 Dose: 150 mg Trazodone HCl (Trazodone Hcl 50 Mg Tablet) 50 mg PO BEDTIME MRX1 PRN PRN Reason: Insomnia Allergies Allergies Allergy/AdvReac Type Severity Reaction Status Date / Time No Known Allergies (No Known Allergy Verified 07/14/25 00:04 Allergies*) Assessment & Plan Assessment & Plan (1) MDD (major depressive disorder), recurrent severe, without psychosis: Status: Acute Code(s): F33.2 - Major depressive disorder, recurrent severe without psychotic features (2) Substance use disorder: Status: Acute Code(s): F19.90 - Other psychoactive substance use, unspecified, uncomplicated (3) Alcohol abuse: Status: Acute Code(s): F10.10 - Alcohol abuse, uncomplicated (4) Homeless: Status: Acute Code(s): Z59.00 - Homelessness unspecified Plan 29 yo male, hx of alcohol, cocaine, opioid use disorders, anxiety, depression, recent discharge from [facility] admitted in transfer from [facility] where he presented with SI with a plan to overdose on Fentanyl. Pt reports being kicked out of a rehab program, attempted to return to him mother's home and was declined when he asked to stay there. He reports going to the street, using, trying [place] stay [place], however, has several scratches from bushes and reports very poor sleep. Pt was falling asleep while we were meeting. We discussed that he was reluctant last admit regarding treatment. I will go to CSS at [facility] if you can help me get in. Pt continued to discuss his sleep, which he reports has been poor since his sister , Jul 2024. He continued to talk of grief and cried-this anniversary being difficult and full of emotion for him. Reports daily alcohol and heroin use. 07/30/25: Continue on M5 on CV, 15 minute checks Encourage milieu participation Continue medications CIWA not indicated at this time 07/31 pt stable, at baseline; continue tx plan 08/01 dispo planning 08/02 continue treatment plan; dispo planning, patient hoping to get into a program 08/03 CTP 08/04 continue treatment plan; patient remains stable, good mood, at baseline 08/05 patient remains doing well, good mood and hopeful about aftercare. Excited learning about pre acceptance to [place] which he says he has been to before and thought was very well done Pt remains in good behavioral and impulse control; appropriate with peers; engaged Pt stable on current medication regimen Patient educated on: diagnosis and medication risk/benefits Informed Consent: understands Reason for continued inpatient stay Substantial Risk for: stable for discharge Time Spent With Patient Time: Total time managing care of this patient today ____ minutes.
[2025-08-05 09:47] VITALS: BP 120/80
[2025-08-05] MEDS: buPROPion HCl XL 300 MG TAB.ER.24H PO (09:48)
[2025-08-05] MEDS: methADONE HCl 20 MG/2 ML ORAL.CONC 190 MG PO (09:52)
[2025-08-05 10:00] VITALS: BP 116/59; PULSE 85; TEMP 36.4; O2SAT 96
[2025-08-05 20:58] VITALS: BP 125/70; PULSE 79; RESP 18; TEMP 36.4; O2SAT 97
[2025-08-05 21:41] VITALS: BP 125/70
[2025-08-06] MEDS: methADONE HCl 20 MG/2 ML ORAL.CONC 190 MG PO (07:57)
[2025-08-06 08:22] VITALS: BP 94/65; PULSE 90; TEMP 36.4; O2SAT 94
[2025-08-06] MEDS: buPROPion HCl XL 300 MG TAB.ER.24H PO (08:27)
[2025-08-06] MEDS: Nicotine Polacrilex Lozenge 4 MG LOZENGE BUCCAL ×4 (08:27→20:55)
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
[2025-08-06 20:00] VITALS: BP 127/68; PULSE 99; RESP 18; TEMP 36.4; O2SAT 96
[2025-08-06 20:49] VITALS: BP 127/68
[2025-08-07] MEDS: methADONE HCl 20 MG/2 ML ORAL.CONC 190 MG PO (07:59)
[2025-08-07 08:31] VITALS: BP 124/66; PULSE 73; TEMP 36.6; O2SAT 95
[2025-08-07] MEDS: buPROPion HCl XL 300 MG TAB.ER.24H PO (08:43)
--- NOTE | 2025-08-07 10:03 | P.PNPSI_ITS ---
Subjective Subjective Date of Service: 08/07/25 Reason For Visit: decompensation Interim History: met with patient; discussed with team Patient remains doing well, in good mood; anxious that he did not get straight into a program and will have to go to a detention but agreeable and understands this just temporary. Mental Status Exam Mental Status Exam Narrative: Patient Appearance: Well Groomed, adequate hygiene Patient Behavior: Appropriate Patient Orientation: Person, Place and Time, situational context Memory: grossly intact to recent events Psychomotor: No retardation/agitation Speech: normal rate, volume, prosody Mood: ?good Affect: appropriate range Thought Process: Goal Oriented, linear and logical Thought Content: Aftercare; denies SI/HI; focused on treatment questions Hallucinations: none Delusions: None Insight/Judgment: fair Diagnostics Vital Signs (24Hr): Vital Signs - 24 hr 08/06/25 20:00 08/06/25 20:49 08/07/25 08:31 Temperature 97.5 F 98 F Pulse Rate 99 73 Respiratory Rate 18 Blood Pressure 127/68 127/68 124/66 Pulse Oximetry 96 95 Oxygen Delivery Method Room Air Room Air BMI result Body Mass Index 33.3 Medications Medications Current Medications Acamprosate (Acamprosate Calcium 333 Mg Tablet.Dr) 666 mg PO TID [facility] Last Admin: 08/07/25 08:44 Dose: 666 mg Acetaminophen (Acetaminophen 325 Mg Tablet) 650 mg PO Q6H PRN PRN Reason: Headache/Pain, Scale 1-10 Last Admin: 08/06/25 17:38 Dose: 650 mg Al Hydroxide/Mg Hydroxide (Magnesium Hydrox/Alum Hydrox 30 Ml Oral.Susp) 30 ml PO Q6H PRN PRN Reason: Heartburn/Nausea Bupropion HCl (Bupropion Hcl Xl 300 Mg Tab.Er.24h) 300 mg PO DAILY [facility] Last Admin: 08/07/25 08:43 Dose: 300 mg Clonidine HCl (Clonidine Hcl 0.2 Mg Tablet) 0.2 mg PO BID [facility]; Protocol Last Admin: 08/07/25 08:44 Dose: 0.2 mg Gabapentin (Gabapentin 600 Mg Tablet) 600 mg PO TID [facility] Last Admin: 08/07/25 08:43 Dose: 600 mg Hydroxyzine HCl (Hydroxyzine Hcl 50 Mg Tablet) 100 mg PO TID PRN PRN Reason: mild anxiety Last Admin: 08/06/25 12:53 Dose: 100 mg Magnesium Hydroxide (Milk Of Magnesia 30 Ml Oral.Susp) 30 ml PO DAILY PRN PRN Reason: Constipation Methadone HCl (Methadone Hcl 20 Mg/2 Ml Oral.Conc) 190 mg PO DAILY [facility] Last Admin: 08/07/25 07:59 Dose: 190 mg Nicotine (Nicotine 21 Mg Patch.Td24) 21 mg TRANSDERMA DAILY PRN PRN Reason: smoking cessation Nicotine Polacrilex (Nicotine Polacrilex Lozenge 4 Mg Lozenge) 4 mg BUCCAL Q2H PRN PRN Reason: Nicotine Cravings Last Admin: 08/06/25 20:55 Dose: 4 mg Olanzapine (Olanzapine 5 Mg Tablet) 5 mg PO TID PRN PRN Reason: agitation Last Admin: 08/06/25 17:38 Dose: 5 mg Quetiapine Fumarate (Quetiapine Fumarate 50 Mg Tablet) 50 mg PO BEDTIME [facility] Last Admin: 08/06/25 20:49 Dose: 50 mg Risperidone (Risperidone 1 Mg Tablet) 1 mg PO BID@0900,1400 [facility] Last Admin: 08/07/25 08:44 Dose: 1 mg Sertraline HCl (Sertraline Hcl 50 Mg Tablet) 150 mg PO DAILY [facility] Last Admin: 08/07/25 08:43 Dose: 150 mg Trazodone HCl (Trazodone Hcl 50 Mg Tablet) 50 mg PO BEDTIME MRX1 PRN PRN Reason: Insomnia Allergies Allergies Allergy/AdvReac Type Severity Reaction Status Date / Time No Known Allergies (No Known Allergy Verified 07/14/25 00:04 Allergies*) Assessment & Plan Assessment & Plan (1) MDD (major depressive disorder), recurrent severe, without psychosis: Status: Acute Code(s): F33.2 - Major depressive disorder, recurrent severe without psychotic features (2) Substance use disorder: Status: Acute Code(s): F19.90 - Other psychoactive substance use, unspecified, uncomplicated (3) Alcohol abuse: Status: Acute Code(s): F10.10 - Alcohol abuse, uncomplicated (4) Homeless: Status: Acute Code(s): Z59.00 - Homelessness unspecified Plan 29 yo male, hx of alcohol, cocaine, opioid use disorders, anxiety, depression, recent discharge from [facility] admitted in transfer from [facility] where he presented with SI with a plan to overdose on Fentanyl. Pt reports being ki cked out of a rehab program, attempted to return to him mother's home and was declined when he asked to stay there. He reports going to the street, using, trying to stay in the [place], however, has several scratches from bushes and reports very poor sleep. Pt was falling asleep while we were meeting. We discussed that he was reluctant last admit regarding treatment. I will go to CSS at [facility] if you can help me get in. Pt continued to discuss his sleep, which he reports has been poor since his sister , Jul 2024. He continued to talk of grief and cried-this anniversary being difficult and full of emotion for him. Reports daily alcohol and heroin use. 07/30/25: Continue on M5 on CV, 15 minute checks Encourage milieu participation Continue medications CIWA not indicated at this time 07/31 pt stable, at baseline; continue tx plan 08/01 dispo planning 08/02 continue treatment plan; dispo planning, patient hoping to get into a program 08/03 CTP 08/04 continue treatment plan; patient remains stable, good mood, at baseline 08/05 patient remains doing well, good mood and hopeful about aftercare. Excited learning about pre acceptance to [place] which he says he has been to before and thought was very well done 08/06 remained stable, good mood, good behavioral and impulse control; continue current treatment plan -patient says that he has his medications with him from last discharge Patient remains at baseline. Good mood, future oriented. He is not in imminent risk for harm to self or others and appropriate to return to the community for treatment Patient educated on: diagnosis and medication risk/benefits Informed Consent: understands Reason for continued inpatient stay Substantial Risk for: stable for discharge Time Spent With Patient Time: Total time managing care of this patient today ____ minutes.
[2025-08-07] MEDS: Nicotine Polacrilex Lozenge 4 MG LOZENGE BUCCAL ×4 (10:18→20:44)
[2025-08-07 20:42] VITALS: BP 129/71
[2025-08-07 20:59] VITALS: BP 129/71; PULSE 99; RESP 16; TEMP 36.7; O2SAT 95
[2025-08-08 08:00] VITALS: BP 118/69; PULSE 105; TEMP 36.7; O2SAT 96
[2025-08-08] MEDS: methADONE HCl 20 MG/2 ML ORAL.CONC 190 MG PO (08:14)
[2025-08-08] MEDS: buPROPion HCl XL 300 MG TAB.ER.24H PO (08:18)
[2025-08-08] MEDS: Nicotine Polacrilex Lozenge 4 MG LOZENGE BUCCAL ×2 (09:00→11:16)
--- NOTE | 2025-08-08 11:04 | P.DS_ITS ---
DS: Providers Provider Date of Service: 08/08/25 Date of admission: 07/27/25 15:08 Date of discharge: 08/08/25 Primary care physician: Troy Dunham MD Admitting clinician: Deb Arvizu Consults: 07/27/25 15:53 Consult to Hospitalist Routine Comment: Consulting Provider: [facility] Hospitalists Reason For Exam: admission physical 07/27/25 16:09 Addiction Medicine Provider Routine Consulting Provider: Addiction Covering Reason for consultation: Daily etoh, fentanyl, cocaine use Attending physician on discharge: Alejandro Perez DS: Diagnosis Discharge Diagnosis (1) MDD (major depressive disorder), recurrent severe, without psychosis: Status: Acute (2) Substance use disorder: Status: Acute (3) Alcohol abuse: Status: Acute (4) Homeless: Status: Acute DS: Medications Discharge Medications Home Medications: Home Medications ?Medication ?Instructions ?Recorded ?Confirmed methadone 10 mg/mL oral 190 mg PO DAILY 01/10/2510/10 concentrate (Methadose) Previous Rx's ?Medication ?Instructions ?Recorded acamprosate 333 mg tablet,delayed 666 mg (2 x 333 mg) PO TID 30 days 07/24/25 release #180 tabs bupropion HCl 300 mg 24 hr tablet, 300 mg PO QAM 30 da ys #30 tabs 07/24/25 extended release clonidine HCl 0.2 mg tablet 0.2 mg PO BID 30 days #60 tabs 07/24/25 gabapentin 600 mg tablet 600 mg PO TID 15 days #45 ta bs 07/24/25 hydroxyzine pamoate 100 mg capsule 100 mg PO TID PRN m ild anxiety 30 07/24/25 days #60 caps nicotine (polacrilex) 4 mg buccal 4 mg PO Q2H PRN Omid omero Cravings 07/24/25 lozenge 30 days #81 ea nicotine 21 mg/24 hr daily 21 mg transdermal DAILY PRN 07/24/25 transdermal patch smoking cessation 28 days #2 8 ea quetiapine 50 mg tablet 50 mg PO BEDTIME 30 days #30 tabs 07/24/25 risperidone 1 mg tablet 1 mg PO BID@0900,1400 30 day s #60 07/24/25 tabs sertraline 100 mg tablet 150 mg (1.5 x 100 mg) PO ABDULKADIR LY 30 07/24/25 days #45 tabs Mental Status Exam Mental Status Exam Narrative: Patient Appearance: Well Groomed, adequate hygiene Patient Behavior: Appropriate Patient Orientation: Person, Place and Time, situational context Memory: grossly intact to recent events Psychomotor: No retardation/agitation Speech: normal rate, volume, prosody Mood: ?good Affect: appropriate range Thought Process: Goal Oriented, linear and logical Thought Content: Aftercare; denies SI/HI; focused on treatment questions Hallucinations: none Delusions: None Insight/Judgment: fair DS: Summary Hospital Course Hospital Course: 29 yo male, hx of alcohol, cocaine, opioid use disorders, anxiety, depression, recent discharge from [facility] admitted in transfer from where he presented with SI with a plan to overdose on Fentanyl. Pt reports being kicked out of a rehab program, attempted to return to him mother's home and was declined when he asked to stay there. He reports going to the street, using, trying to stay [place], however, has several scratches from bushes and reports very poor sleep. Pt was falling asleep while we were meeting. We discussed that he was reluctant last admit regarding treatment. I will go to CSS at [facility] if you can help me get in. Pt continued to discuss his sleep, which he reports has been poor since his sister , Jul 2024. He continued to talk of grief and cried-this anniversary being difficult and full of emotion for him. Reports daily alcohol and heroin use. 07/30/25: Continue on M5 on CV, 15 minute checks Encourage milieu participation Continue medications CIWA not indicated at this time 07/31 pt stable, at baseline; continue tx plan 08/01 dispo planning 08/02 continue treatment plan; dispo planning, patient hoping to get into a program 08/03 CTP 08/04 continue treatment plan; patient remains stable, good mood, at baseline 08/05 patient remains doing well, good mood and hopeful about aftercare. Excited learning about pre acceptance to [place] which he says he has been to before and thought was very well done 08/06 remained stable, good mood, good behavioral and impulse control; continue current treatment plan -patient says that he has his medications with him from last discharge Patient remains at baseline. Good mood, future oriented. He is not in imminent risk for harm to self or others and appropriate to return to the community for treatment Time spent discussing smoking cessation with patient: 3 to 10 minutes Status at Discharge Functional status at discharge: independent ambulation Overall status at discharge: patient is back to baseline Time Spent with Patient Time attestation: Total time managing care of this patient today __40__ minutes. Time spent: Greater than 30 minutes Specific discharge activities: Met with patient; discussed with team; charting Discharge Plan Discharge Anticipated Discharge Date/Time: 08/08/25 11:03 Patient Disposition: Longterm Discharge Diagnosis: MDD, recurrent, severe without psychosis, in remission Referrals: [facility] [Other] - 08/09/25 4:00 pm Referral Note: Follow-up therapy appointment with Cuate Trinidad. Once this appointment is competed, you are eligible for a psychiatric provider. [facility] [Other] - 08/13/25 4:00 pm Referral Note: Follow-up medication telehealth appointment with Venecia Caballero [facility] [Other] - 1 Week Referral Note: *You are on the waitlist. Please call daily to inquire about bed availability [facility] [Other] - 1 Week Referral Note: *You are on the waitlist. Please call daily to inquire about bed availability. Troy Dunham MD [Primary Care Provider, Internal Medicine] - 1 Week Referral Note: Pt declined f/u appt. Discharge Medications: Continued methadone [Methadose] 10 mg/mL concentrate 190 mg PO DAILY Rx Instructions: Partial Fill upon patient request. nicotine 21 mg/24 hr Patch 24 Hour 21 mg transdermal DAILY PRN (Reason: smoking cessation) 28 Days Qty: 28 0RF Rx Instructions: remove at bedtime risperidone 1 mg Tablet 1 mg PO BID@0900,1400 30 Days Qty: 60 0RF hydroxyzine pamoate 100 mg capsule 100 mg PO TID PRN (Reason: mild anxiety) 30 Days Qty: 60 0RF gabapentin 600 mg tablet 600 mg PO TID 15 Days Qty: 45 1RF sertraline 100 mg tablet 150 mg PO DAILY 30 Days Qty: 45 0RF clonidine HCl 0.2 mg tablet 0.2 mg PO BID 30 Days Qty: 60 0RF nicotine (polacrilex) 4 mg lozenge 4 mg PO Q2H PRN (Reason: Nicotine Cravings) 30 Days Qty: 81 0RF bupropion HCl 300 mg tablet extended release 24 hr 300 mg PO QAM 30 Days Qty: 30 0RF acamprosate 333 mg tablet,delayed release (DR/EC) 666 mg PO TID 30 Days Qty: 180 0RF quetiapine 50 mg tablet 50 mg PO BEDTIME 30 Days Qty: 30 0RF Discharge Orders: Discharge Order (Routine); Ordered 08/08/25 Ordered By: Alejandro Perez Diet: Regular diet Activity on Discharge: As tolerated Stand Alone Forms: Patient Portal Discharge page, Community Support Print Language: Prydeinig Care Plan Goals: Maintain mood and safe behaviors Take medications as prescribed Continue to pursue sobriety Practice coping skills Continue with outpatient providers and reach out to them as needed Health Concerns: Mood stability and behaviors Sobriety Plan of Treatment: Follow up with your PCP, psychiatric provider and other outpatient providers regarding above concerns Take medications as prescribed Assessment: Risk assessment at time of discharge:? Patient was interviewed prior to discharge and found to be fully oriented and without any SI or HI. Patient has improved insight and judgment and wants to continue treatment. Patient is not in imminent risk of harm to self or others and has a safety plan that includes presenting to the closest ER or calling 911 if feeling unsafe.? Patient has been observed closely by nursing and unit staff throughout admission; patient has not engaged in any behaviors that suggest dangerousness to self or others and has demonstrated appropriate behaviors and impulse control Discharge Date/Time: 08/08/25 13:43
[2025-08-08] MEDS: Naloxone HCl Nasal TAKE HOME 4 MG SPRAY 8 MG NOSTRILALT (11:16)
== END 2025-08-08 13:43 | disposition home or self-care (01) | DRG 751 ==
PROVIDERS: Admitting Provider Psychiatry & Neurology Psychiatry; PCP Internal Medicine; Visit Provider Psychiatry & Neurology Psychiatry
DX: F33.2 Major depressive disorder, recurrent severe without psychotic features (principal); Z59.02 Unsheltered homelessness; R45.851 Suicidal ideations; F10.10 Alcohol abuse, uncomplicated; F11.20 Opioid dependence, uncomplicated; F17.210 Nicotine dependence, cigarettes, uncomplicated; F19.10 Other psychoactive substance abuse, uncomplicated; Z71.6 Tobacco abuse counseling; Z79.899 Other long term (current) drug therapy

== ENCOUNTER → 2025-07-27 15:08 | Outpatient (BNV) | payer OTHER, SELFPAY | PROVIDERS: Admitting Provider Psychiatry & Neurology Psychiatry; PCP Internal Medicine; Visit Provider Clinical Nurse Specialist Psychiatric/Mental Health, Adult | DX: F33.2 Major depressive disorder, recurrent severe without psychotic features (principal); F19.90 Other psychoactive substance use, unspecified, uncomplicated; F10.10 Alcohol abuse, uncomplicated; Z59.00 Homelessness unspecified | CPT/HCPCS: 90792; 99232 ==

== ENCOUNTER → 2025-07-27 15:08 | Outpatient (BNV) | payer OTHER, SELFPAY | PROVIDERS: Admitting Provider Psychiatry & Neurology Psychiatry; PCP Internal Medicine; Visit Provider Nurse Practitioner Family | DX: F33.2 Major depressive disorder, recurrent severe without psychotic features (principal) | CPT/HCPCS: 99221 ==